=== PATIENT | male | born 1940 | race Caucasian/White ===

== ENCOUNTER → 2017-10-27 12:04 | Outpatient (CLI) | payer MEDICARE, SELFPAY ==
--- NOTE | 2017-10-27 12:15 | NVE_ITS ---
Venous Exam Indications: 729.81 Swelling of limb. IMPRESSIONS 1. There is no evidence of significant Reflux. 2. No evidence of deep or superficial vein thrombosis involving the left lower extremity Left lower extremity venous duplex evaluation. Doppler flow study including spectral analysis, color and sandhu scale imaging. Location: Vascular laboratory. Patient status: Outpatient. CRITICAL FINDINGS - Reported to: Miriam - Read back and verified. - 10/27/17 - 1240 - None Tables: Venous flow and imaging: + +-------+ + Location Overall Flow properties + +-------+ + Left common femoral Patent Normal phasicity; spontaneous; normal augmentation; compressible + +-------+ + Left saphenofemoral junction Patent Compressible + +-------+ + Left profunda femoral Patent Compressible + +-------+ + Left femoral Patent Normal phasicity; spontaneous; normal augmentation; compressible + +-------+ + Left greater saphenous Patent Normal phasicity; spontaneous; normal augmentation; compressible + +-------+ + Left popliteal Patent Normal phasicity; spontaneous; normal augmentation; compressible + +-------+ + Left posterior tibial Patent Compressible + +-------+ + Left peroneal Patent Compressible + +-------+ + Left gastrocnemius Patent Compressible + +-------+ + Left soleal Patent Compressible + +-------+ + (Report amended ) Electronically signed by: Jimi Aguirre [id number]
== END ==
PROVIDERS: PCP Family Medicine; Visit Provider Family Medicine
DX: M79.605 Pain in left leg (principal); R60.0 Localized edema
CPT/HCPCS: 93971

== ENCOUNTER 2017-12-25 05:08 | Observation (INO) ==
[2017-12-25 05:53] LABS: Basophils # 0.1 K/mm3 (0-0.2); Basophils % 0.5 % (0.1-2.0); Eosinophils # 0.3 K/mm3 (0.0-0.4); Eosinophils % 2.4 % (0.1-12.0); Hematocrit 43.1 % (42.0-52.0); Hemoglobin 14.4 g/dL (14.1-18.0); Lymphocytes # 2.2 K/mm3 (0.7-4.5); Lymphocytes % 19.1 K/mm3 (10-50); Mean Corpuscular HGB Conc 33.4 g/dL (31.8-35.4); Mean Corpuscular Hemoglobin 31.4 pg (27.0-31.2); Mean Corpuscular Volume 94.1 fl (80-94); Mean Platelet Volume 6.8 fl (7.4-10.4); Microscopic, Urine URINE MICROSCOPIC (MICROSCOPIC); Monocytes # 0.7 K/mm3 (0.1-1.0); Monocytes % 5.9 % (1.7-9.3); Neutrophils # 8.2 K/mm3 (1.8-7.8); Neutrophils % 72.1 % (37.0-80.0); Platelet Count 242 K/mm3 (142-424); Red Blood Count 4.58 M/mm3 (4.60-6.20); Red Cell Distribution Width 12.6 % (11.5-17.5); White Blood Count 11.4 K/mm3 (4.8-10.8)
[2017-12-25 06:06] LABS: Appearance,Urine CLEAR (Clear); Bilirubin,Urine Negative (Negative); Blood, Urine Negative (Negative); Color,Urine YELLOW (Yellow); Glucose,Urine (UA) Negative (Negative); Ketones,Urine Negative (Negative); Leukocyte Esterase,Urine Negative (Negative); Protein,Urine Negative (Negative); Specific Gravity, Urine 1.025 (1.005-1.030); Urobilinogen,Urine 0.2 EU/dl (0.2)
[2017-12-25 06:09] LABS: Albumin/Globulin Ratio 1.1 (1.1-1.8); Anion Gap 11.7 mEq/L (5-15); Bilirubin,Total 0.8 mg/dL (0.2-1.0); C-Reactive Protein 2.6 mg/L (0.0-0.9); Calcium 8.9 mg/dL (8.5-10.1); Globulin 3.7 gm/dl (1.3-3.2); Potassium 3.7 mmoL/L (3.5-5.1); Total Protein,Serum 7.7 gm/dL (6.4-8.2)
[2017-12-25 06:13] LABS: Bacteria,Urine 1+ /lpf; Mucus,Urine 1+ /lpf; Squamous Epithelial Cell,Urine Occasional #/hpf (0-5); WBC,Urine Occasional #/hpf (0-3)
--- NOTE | 2017-12-25 06:29 | Emergency Department Note ---
ED Disposition Clinical Impression: Colitis Disposition: Admitted as Observation Condition on Discharge: Good Instructions: DI for Gastrointestinal Bleeding Referrals: Nicolas Sharif MD [Primary Care Provider] - - Critical Care Critical Care Time: No Attestation: On 12/25/17, the high probability of a clinically significant, sudden or life threatening deterioration of the following system(s) required my full and direct attention, intervention and personal management. The time I documented below is in addition to time spent performing reported procedures but includes the following listed in this critical care notation. Medical Decision Making - Medical Records Medical records reviewed: Yes: I reviewed the patient's medical records. - Kristian Inquiry Pt receiving controlled substance: No Vital Signs: 12/25/17 05:19 12/25/17 06:22 Temperature 98.2 F Temperature Source Oral Pulse Rate [Right Radial] 116 H 104 H Respiratory Rate 15 15 Blood Pressure [Right Arm] 127/73 142/89 H Blood Pressure Mean [Right Arm] 91 106 Blood Pressure Source [Right Arm] Automatic Cuff Automatic Cuff Blood Pressure Position [Right Arm] Sitting Sitting 02 Sat by Pulse Oximetry 99 98 Oxygen Delivery Method Room Air Room Air - Lab Data Lab results reviewed: Yes: I reviewed the patient's lab results. Lab Results 12/25/17 05:40: WBC 11.4 H, RBC 4.58 L, Hgb 14.4, Hct 43.1, MCV 94.1 H, MCH 31.4 H, MCHC 33.4, RDW 12.6, Plt Count 242, MPV 6.8 L, Neut % (Auto) 72.1, Lymph % (Auto) 19.1, [place] % (Auto) 5.9, Eos % (Auto) 2.4, Baso % (Auto) 0.5, Neut # (Auto) 8.2 H, Lymph # (Auto) 2.2, [place] # (Auto) 0.7, Eos # (Auto) 0.3, Baso # (Auto) 0.1 12/25/17 05:40: Sodium 139, Potassium 3.7, Chloride 105, Carbon Dioxide 26, Anion Gap 11.7, BUN 13, Creatinine 1.00, Estimated Creat Clear 61, Estimated GFR 72, Est GFR ( Amer) 88, Glucose 115 H, Calcium 8.9, Total Bilirubin 0.8, AST 15, ALT 17, Alkaline Phosphatase 134 H, C-Reactive Protein 2.6 H, Total Protein 7.7, Albumin 4.0, Globulin 3.7 H, Albumin/Globulin Ratio 1.1, Amylase 44 12/25/17 05:40: Urine Color Yellow, Urine Appearance Clear, Urine pH 6.0, Ur Specific [place] 1.025, Urine Protein Negative, Urine Glucose (UA) Negative, Urine Ketones Negative, Urine Blood Negative, Urine Nitrate Negative, Urine Bilirubin Negative, Urine Urobilinogen 0.2, Ur Leukocyte Esterase Negative, Urine RBC None, Urine WBC Occasional, Ur Squamous Epith Cells Occasional, Urine Bacteria 1+, Urine Mucus 1+ 12/25/17 05:40: Lactate 0.8 12/25/17 05:40: Lipase 117 12/25/17 05:41: Stool Occult Blood Positive A Result diagrams: 12/25/17 05:40 12/25/17 05:40 Orders (Tests/Meds): ED MEDICATIONS Discontinued Medications Generic Name Dose Route Start Last Admin Trade Name Freq PRN Reason Stop Dose Admin Sodium Chloride 1,000 mls @ 999 mls/hr 12/25/17 05:30 12/25/17 05:41 Sod Chlor 0.9% 1000ml Bag IV 12/25/17 06:30 999 mls/hr .Q1H1M IVORY Administration Ondansetron HCl 4 mg 12/25/17 05:26 12/25/17 05:41 Zofran 4mg/2ml Vial IV 12/25/17 05:27 4 mg ONCE ONE Administration ORDERS Category Date Time Status CT abdomen pelvis wo con Stat Cat Scan 12/25/17 05:26 Taken Diarrhea Panel, PCR Stat Lab 12/25/17 05:27 Ordered Erythrocyte Sedimentation Rate Stat Lab 12/25/17 05:40 Received Occult Blood,Stool Stat Lab 12/25/17 05:41 Ordered UA [Urinalysis and Microscopic] Stat Lab 12/25/17 05:40 Ordered Blood Culture Stat Micro 12/25/17 05:40 Received - CT Data CT Scan: Abdomen, Pelvis Time Received: 07:[address] Reviewed: Yes: I have viewed the radiologist's interpretation Preliminary Findings: Abnormal (colitis ) - ECG Data Tracing #1 I reviewed this ECG and interpreted as documented below: Arrhythmias present: sinus tach Ischemic changes: non-specific ST-T wave changes - Physician Consults Physician Consulted: sound Reason -: Admission GI Bleed HPI - General Chief complaint: GI Bleed Stated complaint: rectal bleeding Time Seen by Provider: 12/25/17 06:00 Mode of Arrival: Ambulatory Source of Information: Patient, Medical Record Limitations: No Limitations Description of Symptoms (Recalled from ER Triage Doc. by RN): Pt reports last night he started having abdominal cramping and diarrhea. He reports he broke out in a sweat and had 4 or 5 more bowel movements and started having blood in his stool. - History of Present Illness HPI Narrative: pt with diarrhea and brrb with crampy abd pain with diaphoresis but no vomiting which started last pm MD complaint: gross hematochezia Onset (ago): day(s) Severity: moderate Associated symptoms: denies other symptoms Treatments Prior to Arrival: none - Related Data Home Medications Medication Instructions Recorded Confirmed Amlodipine Besylate 5 mg PO DAILY 12/25/17 12/25/17 Aspirin [Aspirin 325mg Tab] 325 mg PO DAILY 12/25/17 12/25/17 Ramipril 5 mg PO DAILY 12/25/17 12/25/17 raNITIdine HCl [Ranitidine HCl] 150 mg PO BID 12/25/17 12/25/17 Allergies Allergy/AdvReac Type Severity Reaction Status Date / Time INGREDIENT: NO KNOWN - NO Allergy Unknown Uncoded 03/04/17 15:21 KNOWN DRUG ALLERGY [facility] History I have reviewed the patient's past medical history: Yes - Social History Smoking Status: Current every day smoker Tobacco Type: smokeless tobacco Alcohol Intake: current Alcohol Intake Frequency:: a few times a week - Psychiatric History Expresses thoughts of harming self/others: None Suicide Plan Description: No Plan ROS Obtained: Yes All systems reviewed & no additional complaints - Constitutional Constitutional: Denies fever(s) - Eyes Eyes: Denies change in vision - ENT Ears, Nose, Mouth, and Throat: Denies sore throat - Cardiovascular Cardiovascular: Denies chest pain - Respiratory Respiratory: No cough - Gastrointestinal Gastrointestingal: Reports: abdominal pain, diarrhea, bright red blood in stools, nausea, vomiting - Genitourinary Male Genitourinary: Denies hematuria - Musculoskeletal Musculoskeletal: Denies joint pain - Integumentary/Breasts Skin/Breast: Denies rash - Neurologic Neurologic: Denies seizure-like activity Physical Exam - General General appearance: alert, in no apparent distress - Head Head exam: normocephalic - Eye Eye exam: Present: PERRL, EOMI - ENT ENT exam: Present: mucous membranes dry - Neck Neck exam: Present: trachea midline - Respiratory Respiratory exam: Present: normal lung sounds bilaterally. Absent: respiratory distress - Cardiovascular Cardiovascular exam: Present: regular rate, systolic murmur - Abdominal Exam Abdominal exam: Present: soft, tenderness Abdominal tenderness: Present: epigastrium, moderate - Extremities Exam Extremities exam: Present: full ROM - Neurological Exam Neurological exam: Present: alert, oriented X3, CN II-XII intact - Psychiatric Psychiatric exam: Present: normal affect - Skin Skin exam: Absent: rash
--- NOTE | 2017-12-25 08:32 | History & Physical Report ---
*Admission Date: 12/25/17 <Veda Alamo 12/25/17 08:46> *Chief complaint: Blood in stool <Beny Alamo12/25/17 08:46> *History of present illness: Mr. Vivas is a 77yo WM with history of HTN, CAD with CABG, HLP, GERD, and OA who presented to the [facility] ED this morning after several episodes of judd blood in his stool. He reports that after supper last night he started with some abdominal cramping which progressed to several episodes of bloody diarrhea. Episodes were accompanied by nausea, lightheadedness, and diaphoresis. He presented to the ED where heme stool was positive and he was admitted for further evaluation. At this time, the patient is resting quietly in bed. He has had no further BM since providing stool specimen in the ED. He is no longer nauseated but continues with crampy abdominal pain and tenderness. Abdominal CT is pending. <Veda Alamo 12/25/17 08:46> [facility] History Medical History: Reports:: Atherosclerotic Heart Disease, Gastroesophageal Reflux Disease(GERD), Hyperlipidemia, Hypertension <Veda Alamo 12/25/17 08:46> Other Medical History: Reports: Arthritis <Veda Alamo 12/25/17 08:46> Other Surgeries: Yes: CABG <JasmeetVeda - 12/25/17 08:46> - *Social History Smoking Status: Current every day smoker <Veda Alamo 12/25/17 08:46> Tobacco Type: smokeless tobacco <Veda Alamo 12/25/17 08:46> Alcohol Intake: current <eVda Alamo 12/25/17 08:46> Alcohol Intake Frequency:: a few times a week <Veda Alamo 12/25/17 08:46> - Psychiatric History Expresses thoughts of harming self/others: None <Veda Alamo 12/25/17 08:46> Suicide Plan Description: No Plan <Veda Alamo 12/25/17 08:46> *Family Hx:: Cancer, Diabetes, Kidney Disease <Veda Alamo 12/25/17 08:46> Review of Systems - Constitutional Reports excessive sweating, Reports weakness, Denies body ache(s), Denies chills <Veda Alamo 12/25/17 08:46> - Eyes Denies change in vision <Veda Alamo 12/25/17 08:46> - ENT Denies nasal congestion, Denies nasal discharge, Denies sore throat <Veda Alamo 12/25/17 08:46> - *Cardiovascular Reports excessive sweating, Reports lightheadedness, Denies chest pain, Denies shortness of breath <JasmeetVeda 12/25/17 08:46> - *Respiratory Denies chest congestion, Denies cough, Denies shortness of breath <Veda Alamo 12/25/17 08:46> - *Gastrointestinal Reports abdominal pain, Reports bloating, Reports cramping, Reports bright, red blood in stools, Reports loose stools, Reports nausea, Denies vomiting <Veda Alamo 12/25/17 08:46> - *Genitourinary Denies difficulty urinating <JasmeetVeda 12/25/17 08:46> - *Musculoskeletal Denies body aches <JasmeetVeda 12/25/17 08:46> - *Neurologic Denies seizure-like activity, Denies fainting <Veda Alamo 12/25/17 08:46> Meds Home Medications Medication Instructions Recorded Confirmed Type Amlodipine Besylate 5 mg PO DAILY 12/25/17 12/25/17 History Aspirin [Aspirin 325mg Tab] 325 mg PO DAILY 12/25/17 12/25/17 History Ramipril 5 mg PO DAILY 12/25/17 12/25/17 History raNITIdine HCl [Ranitidine HCl] 150 mg PO BID 12/25/17 12/25/17 History <VianeyGabriela 12/25/17 19:28> Allergies Allergy/AdvReac Type Severity Reaction Status Date / Time No Known Allergies Allergy Unverified 12/25/17 07:56 <Gabriela Winters 12/25/17 19:28> Exam Vital signs and Labs for Last 24 Hours: Temp Pulse Resp BP Pulse Ox 98.7 F 92 H 18 141/71 H 98 12/25/17 15:29 12/25/17 15:29 12/25/17 15:29 12/25/17 15:29 12/25/17 15:29 Laboratory Results - last 24 hr 12/25/17 05:40: WBC 11.4 H, RBC 4.58 L, Hgb 14.4, Hct 43.1, MCV 94.1 H, MCH 31.4 H, MCHC 33.4, RDW 12.6, Plt Count 242, MPV 6.8 L, Neut % (Auto) 72.1, Lymph % (Auto) 19.1, [place] % (Auto) 5.9, Eos % (Auto) 2.4, Baso % (Auto) 0.5, Neut # (Auto) 8.2 H, Lymph # (Auto) 2.2, [place] # (Auto) 0.7, Eos # (Auto) 0.3, Baso # (Auto) 0.1 12/25/17 05:40: Sodium 139, Potassium 3.7, Chloride 105, Carbon Dioxide 26, Anion Gap 11.7, BUN 13, Creatinine 1.00, Estimated Creat Clear 61, Estimated GFR 72, Est GFR ( Amer) 88, Glucose 115 H, Calcium 8.9, Total Bilirubin 0.8, AST 15, ALT 17, Alkaline Phosphatase 134 H, C-Reactive Protein 2.6 H, Total Protein 7.7, Albumin 4.0, Globulin 3.7 H, Albumin/Globulin Ratio 1.1, Amylase 44 12/25/17 05:40: Urine Color Yellow, Urine Appearance Clear, Urine pH 6.0, Ur Specific [place] 1.025, Urine Protein Negative, Urine Glucose (UA) Negative, Urine Ketones Negative, Urine Blood Negative, Urine Nitrate Negative, Urine Bilirubin Negative, Urine Urobilinogen 0.2, Ur Leukocyte Esterase Negative, Urine RBC None, Urine WBC Occasional, Ur Squamous Epith Cells Occasional, Urine Bacteria 1+, Urine Mucus 1+ 12/25/17 05:40: Lactate 0.8 12/25/17 05:40: ESR 25 H 12/25/17 05:40: Lipase 117 12/25/17 05:41: Stool Occult Blood Positive A <Sound,Gabriela - 12/25/17 19:28> Temp Pulse Resp BP Pulse Ox 97.9 F 103 H 18 152/84 H 97 12/25/17 07:56 12/25/17 07:56 12/25/17 07:56 12/25/17 07:56 12/25/17 07:56 Laboratory Results - last 24 hr 12/25/17 05:40: WBC 11.4 H, RBC 4.58 L, Hgb 14.4, Hct 43.1, MCV 94.1 H, MCH 31.4 H, MCHC 33.4, RDW 12.6, Plt Count 242, MPV 6.8 L, Neut % (Auto) 72.1, Lymph % (Auto) 19.1, [place] % (Auto) 5.9, Eos % (Auto) 2.4, Baso % (Auto) 0.5, Neut # (Auto) 8.2 H, Lymph # (Auto) 2.2, [place] # (Auto) 0.7, Eos # (Auto) 0.3, Baso # (Auto) 0.1 12/25/17 05:40: Sodium 139, Potassium 3.7, Chloride 105, Carbon Dioxide 26, Anion Gap 11.7, BUN 13, Creatinine 1.00, Estimated Creat Clear 61, Estimated GFR 72, Est GFR ( Amer) 88, Glucose 115 H, Calcium 8.9, Total Bilirubin 0.8, AST 15, ALT 17, Alkaline Phosphatase 134 H, C-Reactive Protein 2.6 H, Total Protein 7.7, Albumin 4.0, Globulin 3.7 H, Albumin/Globulin Ratio 1.1, Amylase 44 12/25/17 05:40: Urine Color Yellow, Urine Appearance Clear, Urine pH 6.0, Ur Specific [place] 1.025, Urine Protein Negative, Urine Glucose (UA) Negative, Urine Ketones Negative, Urine Blood Negative, Urine Nitrate Negative, Urine Bilirubin Negative, Urine Urobilinogen 0.2, Ur Leukocyte Esterase Negative, Urine RBC None, Urine WBC Occasional, Ur Squamous Epith Cells Occasional, Urine Bacteria 1+, Urine Mucus 1+ 12/25/17 05:40: Lactate 0.8 12/25/17 05:40: ESR 25 H 12/25/17 05:40: Lipase 117 12/25/17 05:41: Stool Occult Blood Positive A <Veda Alamo - 12/25/17 08:46> I & O for Last 24 hours: Intake & Output 12/23/17 12/24/17 12/25/17 12/26/17 11:59 11:59 11:59 11:59 Intake Total 0 / 0 Balance 0 / 0 Weight 155 lb 9 oz <Gabriela Winters 12/25/17 19:28> Intake & Output 12/22/17 12/23/17 12/24/17 12/25/17 11:59 11:59 11:59 11:59 Weight 155 lb 9 oz <Veda Alamo 12/25/17 08:46> - Constitutional no acute distress <Beny Alamoa 12/25/17 08:46> - *Routine HEENT Exam Head: Present: normocephalic, atraumatic <Beny Alamoa 12/25/17 08:46> Eye: Present: PERRL, normal accommodation. Absent: scleral injection <Beny Alamoa 12/25/17 08:46> ENT: Present: mucous membranes moist, nares patent <Beny Alamoa 12/25/17 08:46> - *Routine Neck Exam Present: supple, full ROM. Absent: lymphadenopathy, thyromegaly, tenderness <JasmeetVeda 12/25/17 08:46> - *Routine Respiratory Exam Comments: CTAB A&P <Beny Alamoa 12/25/17 08:46> - *Routine Cardiovascular Exam Present: RRR. Absent: murmur <Beny Alamoa 12/25/17 08:46> - *Routine Abdominal Exam Comments: BS x 4, hyperactive, soft, mildly and diffusely ttp, no guarding, no rebound, no organomegaly or mass <JasmeetVeda 12/25/17 08:46> - *Routine Extremities Exam Comments: trace LLE edema, full ROM, pulses present, no calf tenderness <JasmeetBeny choea 12/25/17 08:46> - *Routine Neurological Exam Present: alert, oriented X3, moving all extremities, normal speech. Absent: facial asymmetry <JasmeetVeda 12/25/17 08:46> Assessment and Plan - Assessment and plan all Dx Assessment and Plan for all problems:: Will dc levaquin and will only keep on PO vancomycin for c.difficle. E.coli diarrhea doesn't need any treatment at this time. Will plan for dispo tomorrow. Stop IVF and start feeds in the am. <Janet Wintersa 12/25/17 19:28> CT pending. Nursing reports lab called with diarrhea panel preliminary results showing C.difficile and E.coli. Pt is on levaquin and flagyl currently. Further per Dr. Winters. <Veda Alamo - 12/25/17 08:46>
--- NOTE | 2017-12-25 09:51 | Pharmacy Consult Notes ---
[facility] Pharmacy VTE Monitoring - Patient Demographics Admission date: 12/25/17 Report Date: 12/25/17 Time: 09:50 Allergies/Adverse Reactions: Patient Allergies No Known Allergies Allergy (Unverified 12/25/17 07:56) Height: 1.73 m Weight: 70.562 kg Patient Problems: Current Active Problems Colitis (Acute) - VTE Risk Labs: VTE Related Lab Results Hgb 14.4 g/dL (14.1-18.0) 12/25/17 05:40 Hct 43.1 % (42.0-52.0) 12/25/17 05:40 Plt Count 242 K/mm3 (142-424) 12/25/17 05:40 BUN 13 mg/dL (7-18) 12/25/17 05:40 Creatinine 1.00 mg/dL (0.70-1.30) 12/25/17 05:40 Estimated Creat Clear 61 mL/min (0-300) 12/25/17 05:40 - Prophylaxis Types of VTE Prophylaxis: TEDS Knee High Location of Applied Device: Bilateral Lower Extremeties (JUAN FRANCISCO HOSE ORDERED)
[2017-12-26 06:28] LABS: Basophils % 0.2 % (0.1-2.0); Eosinophils # 0.2 K/mm3 (0.0-0.4); Eosinophils % 1.3 % (0.1-12.0); Hematocrit 39.8 % (42.0-52.0); Lymphocytes % 15.1 K/mm3 (10-50); Mean Corpuscular HGB Conc 32.7 g/dL (31.8-35.4); Mean Corpuscular Hemoglobin 30.9 pg (27.0-31.2); Mean Corpuscular Volume 94.5 fl (80-94); Mean Platelet Volume 6.9 fl (7.4-10.4); Monocytes # 0.8 K/mm3 (0.1-1.0); Monocytes % 5.7 % (1.7-9.3); Neutrophils # 10.4 K/mm3 (1.8-7.8); Neutrophils % 77.6 % (37.0-80.0); Platelet Count 198 K/mm3 (142-424); Red Blood Count 4.21 M/mm3 (4.60-6.20); Red Cell Distribution Width 12.5 % (11.5-17.5); White Blood Count 13.4 K/mm3 (4.8-10.8)
[2017-12-26 06:36] LABS: Calcium 8.2 mg/dL (8.5-10.1)
--- NOTE | 2017-12-26 08:07 | Progress Note ---
<Dayami Loya - Last Filed: 12/26/17 08:03> Internal Medicine - PN: Subj *Date: 12/26/17 *Time: 08:04 Interval history: Patient states he is feeling better today. His last few trips to the bathroom, he has only urinated and not had any bowel movement. He still has some pain on the left side and it's worse in the left lower quadrant. He was able to tolerate some coffee this morning and is going to try to eat some chicken broth. He slept off and on throughout the night. Exam Vital signs and Labs for Last 24 Hours: Temp Pulse Resp BP Pulse Ox 98.6 F 88 18 141/67 H 97 12/26/17 07:33 12/26/17 07:33 12/26/17 07:33 12/26/17 07:33 12/26/17 07:33 Laboratory Results - last 24 hr 12/26/17 06:10: WBC 13.4 H, RBC 4.21 L, Hgb 13.0 L, Hct 39.8 L, MCV 94.5 H, MCH 30.9, MCHC 32.7, RDW 12.5, Plt Count 198, MPV 6.9 L, Neut % (Auto) 77.6, Lymph % (Auto) 15.1, [place] % (Auto) 5.7, Eos % (Auto) 1.3, Baso % (Auto) 0.2, Neut # (Auto) 10.4 H, Lymph # (Auto) 2.0, [place] # (Auto) 0.8, Eos # (Auto) 0.2, Baso # (Auto) 0.0 12/26/17 06:10: Sodium 139, Potassium 4.0, Chloride 105, Carbon Dioxide 28, Anion Gap 10.0, BUN 9 D, Creatinine 0.88, Estimated Creat Clear 60, Estimated GFR 84, Est GFR ( Amer) 102, Glucose 100, Calcium 8.2 L I & O for Last 24 hours: Intake & Output 12/23/17 12/24/17 12/25/17 12/26/17 11:59 11:59 11:59 11:59 Intake Total 1773 / 1773 Balance 1773 / 1773 Weight 155 lb 9 oz 152 lb 3 oz Radiology Reports for the Last 24 Hours: Abd CT 1. Long segment colon wall thickening-. This prominent wall thickening involving a long segment of large bowel extending from the transverse colon through the descending colon into the sigmoid colon. Surrounding paracolic fat stranding.- Findings most compatible with a diffuse colitis involving the left colon. No pneumatosis. No free intraperitoneal air or fluid. No abscess or l oculated collection. 2. Left inguinal hernia, containing portion of thickened proximal sigmoid colon.. I suspect the wall thickening is due to the colitis rather than incarceration.. Would concur with [facility] in this regard. No bowel obstruction proximal to this hernia 3.. Strongly favor this most likely infectious colitis, but requires clinical correlation. Consider follow-up CTA if significant clinical concern regarding ischemic colitis should develop. ( patient does have prominent calcified plaque which narrows the mid abdominal aorta, as well as at origin of SMA, but but below the aortic narrowing there seems to be generous, adequate volume YONG which is the typical supply to the left colon. Contrast be required to fully confirm patency) 4. Small punctate renal calculi bilaterally. Nonobstructive. Upper normal the slight wall thickening urinary bladder warrants correlation with urinalysis. 5. Other incidental observations in text. ... Small hiatal hernia ... Would recommend a two-view chest better evaluate the pleural calcifications at left chest. (No previous chest films available at our facility) - Constitutional no acute distress - *Routine Respiratory Exam Present: CTA bilaterally - *Routine Cardiovascular Exam Present: RRR - *Routine Abdominal Exam Present: soft, normoactive bowel sounds, tenderness (of the entire left side but worse in the LLQ) - *Routine Extremities Exam Absent: cyanosis, clubbing, edema Assessment and Plan (1) C. difficile colitis Current visit: Yes Status: Acute Category: Medical Code(s): A04.72 - Enterocolitis due to Clostridium difficile, not specified as recurrent (2) E. coli colitis Current visit: Yes Status: Acute Category: Medical Code(s): A04.4 - Other intestinal Escherichia coli infections (3) Hypertension Current visit: Yes Status: Chronic Category: Medical Code(s): I10 - Essential (primary) hypertension (4) Hyperlipidemia Current visit: Yes Status: Chronic Category: Medical Code(s): E78.5 - Hyperlipidemia, unspecified (5) ASCVD (arteriosclerotic cardiovascular disease) Current visit: Yes Status: Chronic Category: Medical Code(s): I25.10 - Atherosclerotic heart disease of [place] coronary artery without angina pectoris - Assessment and plan all Dx Assessment and Plan for all problems:: Patient is currently on p.o. vancomycin. He is still taking very little liquid p.o. Will continue antibiotics and discuss further care with Dr. mayorga. <Gabriela Mayorga - Last Filed: 12/26/17 09:17> Exam Vital signs and Labs for Last 24 Hours: Temp Pulse Resp BP Pulse Ox 98.6 F 88 18 141/67 H 97 12/26/17 07:33 12/26/17 07:33 12/26/17 07:33 12/26/17 07:33 12/26/17 07:33 Laboratory Results - last 24 hr 12/26/17 06:10: WBC 13.4 H, RBC 4.21 L, Hgb 13.0 L, Hct 39.8 L, MCV 94.5 H, MCH 30.9, MCHC 32.7, RDW 12.5, Plt Count 198, MPV 6.9 L, Neut % (Auto) 77.6, Lymph % (Auto) 15.1, [place] % (Auto) 5.7, Eos % (Auto) 1.3, Baso % (Auto) 0.2, Neut # (Auto) 10.4 H, Lymph # (Auto) 2.0, [place] # (Auto) 0.8, Eos # (Auto) 0.2, Baso # (Auto) 0.0 12/26/17 06:10: Sodium 139, Potassium 4.0, Chloride 105, Carbon Dioxide 28, Anion Gap 10.0, BUN 9 D, Creatinine 0.88, Estimated Creat Clear 60, Estimated GFR 84, Est GFR ( Amer) 102, Glucose 100, Calcium 8.2 L I & O for Last 24 hours: Intake & Output 12/23/17 12/24/17 12/25/17 12/26/17 11:59 11:59 11:59 11:59 Intake Total 1773 / 177 Balance 1773 / 1773 Weight 155 lb 9 oz 152 lb 3 oz Assessment and Plan (1) C. difficile colitis Current visit: Yes Status: Acute Category: Medical Code(s): A04.72 - Enterocolitis due to Clostridium difficile, not specified as recurrent (2) E. coli colitis Current visit: Yes Status: Acute Category: Medical Code(s): A04.4 - Other intestinal Escherichia coli infections (3) Hypertension Current visit: Yes Status: Chronic Category: Medical Code(s): I10 - Essential (primary) hypertension (4) Hyperlipidemia Current visit: Yes Status: Chronic Category: Medical Code(s): E78.5 - Hyperlipidemia, unspecified (5) ASCVD (arteriosclerotic cardiovascular disease) Current visit: Yes Status: Chronic Category: Medical Code(s): I25.10 - Atherosclerotic heart disease of [place] coronary artery without angina pectoris - Assessment and plan all Dx Assessment and Plan for all problems:: continue abx and and advance diet to solids this afternoon to see if he tolerates them. Possible dc in PM if he tolerates food.
--- NOTE | 2017-12-27 16:04 | Discharge Summary ---
General - General Admission date:: 12/25/17 Discharge date: 12/26/17 HPI HPI: Mr. Vivas is a 77yo WM with history of HTN, CAD with CABG, HLP, GERD, and OA who presented to the [facility] ED this morning after several episodes of judd blood in his stool. He reports that after supper last night he started with some abdominal cramping which progressed to several episodes of bloody diarrhea. Episodes were accompanied by nausea, lightheadedness, and diaphoresis. He presented to the ED where heme stool was positive and he was admitted for further evaluation. At this time, the patient is resting quietly in bed. He has had no further BM since providing stool specimen in the ED. He is no longer nauseated but continues with crampy abdominal pain and tenderness. Abdominal CT is pending. Hospital Course Hospital Course: Nursing reported a diarrhea panel preliminary result showing C.difficile and E.coli. The patient was on levaquin and flagyl. His IV abx were stopped and he was started on PO vancomycin for the c.difficle. E.coli diarrhea did not require any treatment. His CT showed colitis from the transverse through the descending colon into the sigmoid colon. He was able to tolerate liquids and then a diet. He was stable to be discharged home on both PO vancomcin and levaquin. Objective Vital signs: Temp Pulse Resp BP Pulse Ox 98.6 F 88 18 141/67 H 97 12/26/17 07:33 12/26/17 07:33 12/26/17 07:33 12/26/17 07:33 12/26/17 07:33 Narrative: - Constitutional no acute distress - *Routine HEENT Exam Head: Present: normocephalic, atraumatic Eye: Present: PERRL, normal accommodation. Absent: scleral injection ENT: Present: mucous membranes moist, nares patent - *Routine Neck Exam Present: supple, full ROM. Absent: lymphadenopathy, thyromegaly, tenderness - *Routine Respiratory Exam Comments: CTAB A&P - *Routine Cardiovascular Exam Present: RRR. Absent: murmur - *Routine Abdominal Exam Comments: BS x 4, hyperactive, soft, mildly and diffusely ttp, no guarding, no rebound, no organomegaly or mass - *Routine Extremities Exam Comments: trace LLE edema, full ROM, pulses present, no calf tenderness - *Routine Neurological Exam Present: alert, oriented X3, moving all extremities, normal speech. Absent: facial asymmetry Results Labs on day of discharge: Preliminary micro results at discharge 12/25/17 05:40 Blood Culture - Preliminary Blood NO GROWTH AFTER 48 HOURS 12/25/17 05:40 Blood Culture - Preliminary Blood NO GROWTH AFTER 48 HOURS DS: Diagnosis - Discharge Diagnosis (1) C. difficile colitis Status: Acute (2) E. coli colitis Status: Acute (3) Hypertension Status: Chronic (4) Hyperlipidemia Status: Chronic (5) ASCVD (arteriosclerotic cardiovascular disease) Status: Chronic Discharge Plan - Patient Discharge Instructions ACTIVITY: Continue current activity DIET: continue same diet Patient Instructions: DI for Antibiotic -- associated Colitis -- C difficile, DI for Multiple Drug-resistant Organism (MDRO) Infection, DI for Colitis - Follow up Plan Follow up with: Gabriela Winters MD [Staff Physician] - 1 week Disposition: Home, Self-Fdc Medications: Home Medications Medication Instructions Recorded Confirmed Type Amlodipine Besylate 5 mg PO DAILY 12/25/17 12/25/17 History Aspirin [Aspirin 325mg Tab] 325 mg PO DAILY 12/25/17 12/25/17 History Ramipril 5 mg PO DAILY 12/25/17 12/25/17 History raNITIdine HCl [Ranitidine HCl] 150 mg PO BID 12/25/17 12/25/17 History Prescriptions/Medication Reconciliation: New Ondansetron HCl [Zofran 4mg Tab] 4 mg PO TID 7 Days #21 tab Pantoprazole Sodium [Protonix 40mg tablet] 40 mg PO HS 30 Days #30 tablet. levoFLOXacin [Levaquin 750mg tablet] 750 mg PO 1100 #10 tablet Vancomycin HCl [Vancocin HCl] 125 mg PO Q8H 7 Days #21 capsule Continue Ramipril 5 mg PO DAILY Aspirin [Aspirin 325mg Tab] 325 mg PO DAILY Amlodipine Besylate 5 mg PO DAILY raNITIdine HCl [Ranitidine HCl] 150 mg PO BID
== END 2017-12-26 13:20 | disposition home or self-care (01) ==
LOC: ER 05:08 → 2ND 05:08
PROVIDERS: ADMIT Emergency Medicine; ATTEND Emergency Medicine
CPT/HCPCS: 36415; 74176; 80048; 80053; 81001; 82150; 82272; 83605; 83690; 85025; 85651; 86140; 87040; 93005; 96365; 99284; G0328; G0378; J1956; J2405; J3370

== ENCOUNTER → 2018-01-07 08:42 | Outpatient (CLI) | payer MEDICARE, SELFPAY ==
--- NOTE | 2018-01-07 | US_ITS ---
US Arterial Ankle Brachial Ind History: Previous smoker, hypertension, peripheral vascular disease, bilateral rest pain, bilateral claudication with skin changes ORDERING PHYSICIAN: Gabriela Winters MD PATIENT AGE: 77 years TECHNIQUE: Segmental pressures obtained of both right and left leg. These are compared to brachial blood pressure to yield index at each level sampled including summary LATONIA. The data sheets from the procedure are available in PACS FINDINGS Rest study only performed today No prior studies available for comparison. Blood pressures reported are in millimeters mercury. RIGHT LEG LATONIA = 1.0. RIGHT LEG TBI=0.8 Brachial BP: 124 Thigh BP: 146 Calf BP: 184 Ankle PT: 135 Ankle DP : 121 Digit =108 LEFT LEG LATONIA = 1.1 LEFT LEG TBI= 0.7 Brachial BPD: 133 Thigh BP: 144 Calf BP: 200 Ankle PT:145 Ankle DP: 132 Digit = 88 Pulses and waveforms: Normal IMPRESSION: The ABIs as reported above are within normal limits. Waveforms and pulses are also unremarkable.
--- NOTE | 2018-01-07 | CA_ITS ---
PROCEDURE: 2-D M-mode and color Doppler study INDICATIONS FOR THE TEST: Chest pain COPD Heart Murmur Tobacco Smoking Palpitations Fatigue Syncope EdemaX HypertensionXDiabetes Mellitus Rheumatic Fever SOBXDOE Obesity HyperlipidemiaX Family History HD Additional History CAD,CABG PATIENT INFORMATION HEIGHT: 68 WEIGHT:155 GENDER: Male B/P:141/67 2-D/M-MODE INTERPRETATION: 2-D MEASUREMENTS OBSERVED VALUES IN CMS Right Ventricular Dimension (RVDd) 2.3 Interventricular Septum (Thickness)(IVsd) .7 Left Ventricular Internal Dimensions(LVIDd) 5.0 Left Ventricular Posterior Wall (Thickness)(LVPWd) .7 Aortic Root 3.6 Aortic Cusp Separation 1.0 Left Atrial Dimensions (LAD) 2.6 2D 1. Left atrium is mildly enlarged, left ventricle is normal size, mild concentric left ventricular hypertrophy, visually estimated ejection fraction of 55% with no regional wall motion abnormality. 2. The right atrium and right ventricle are normal size and contractility. 3. The aortic valve is minimally thickened and calcified leaflet continue to display mobility. 4. The mitral and tricuspid valvular grossly normal. 5. The pulmonic valve is poorly visualized. 6. Significant pericardial effusion noted. DOPPLER INTERROGATION: Doppler interrogation of the aortic, mitral and tricuspid valve reveals presence of mild mitral and tricuspid regurgitation, tricuspid regurgitation jet velocity is inadequate for calculation of the right ventricular systolic pressure, grade 1 diastolic dysfunction seen with tissue Doppler evidence of raised left atrial pressure. CONCLUSION: 1. Mildly enlarged left atrium, normal left ventricular size, mild concentric left ventricular hypertrophy, visually estimated ejection fraction 55% with no regional wall motion abnormality, grade 1 diastolic dysfunction seen with tissue Doppler evidence of raised left atrial pressure. 2. Mild mitral and tricuspid regurgitation 3. Thickened and calcified aortic valve without Doppler evidence of aortic stenosis aortic insufficiency. 4. No significant pericardial effusion noted.
== END ==
PROVIDERS: PCP Family Medicine; Visit Provider Emergency Medicine
DX: R06.02 Shortness of breath (principal); I73.9 Peripheral vascular disease, unspecified; M79.89 Other specified soft tissue disorders
CPT/HCPCS: 93306; 93922

== ENCOUNTER 2018-06-23 17:51 | Inpatient (IN) ==
--- NOTE | 2018-06-23 18:13 | Emergency Department Note ---
ED Disposition Clinical Impression: Closed left hip fracture Qualifiers: Encounter type: initial encounter Qualified Code(s): S72.002A - Fracture of unspecified part of neck of left femur, initial encounter for closed fracture Disposition: Admitted As Inpatient Condition on Discharge: Fair Referrals: Nicolas Sharif MD [Primary Care Provider] - - Critical Care Critical Care Time: No Attestation: On , the high probability of a clinically significant, sudden or life threatening deterioration of the following system(s) required my full and direct attention, intervention and personal management. The time I documented below is in addition to time spent performing reported procedures but includes the following listed in this critical care notation. Medical Decision Making - Kristian Inquiry Pt receiving controlled substance: No (Declines pain medication at this time) Vital Signs: 06/23/18 17:52 06/23/18 19:10 Temperature 98.3 F Temperature Source Oral Pulse Rate [Right Brachial] 83 95 H Respiratory Rate 16 18 Blood Pressure [Right Arm] 149/78 H 124/88 Blood Pressure Mean [Right Arm] 101 100 Blood Pressure Source [Right Arm] Automatic Cuff Automatic Cuff Blood Pressure Position [Right Arm] Supine Sitting 02 Sat by Pulse Oximetry 98 100 Oxygen Delivery Method Room Air Room Air - Lab Data Lab Results 06/23/18 18:01: WBC 6.8, RBC 4.04 L, Hgb 12.6 L, Hct 37.5 L, MCV 92.7, MCH 31.3 H, MCHC 33.7, RDW 13.2, Plt Count 249, MPV 7.1 L, Neut % (Auto) 52.0, Lymph % (Auto) 37.8, [place] % (Auto) 5.9, Eos % (Auto) 3.7, Baso % (Auto) 0.5, Neut # (Auto) 3.5, Lymph # (Auto) 2.6, [place] # (Auto) 0.4, Eos # (Auto) 0.3, Baso # (Auto) 0.0 06/23/18 18:01: Sodium 143, Potassium 4.3, Chloride 105, Carbon Dioxide 28, Anion Gap 14.3, BUN 20 H, Creatinine 1.33 H, Estimated Creat Clear 45, Estimated GFR 52 L, Est GFR ( Amer) 63, Glucose 108 H, Calcium 9.2, Total Bilirubin 0.5, AST 14 L, ALT 18, Alkaline Phosphatase 95, Total Protein 7.6, Albumin 4.0, Globulin 3.6 H, Albumin/Globulin Ratio 1.1 Result diagrams: 06/23/18 18:01 06/23/18 18:01 Orders (Tests/Meds): ED MEDICATIONS Generic Name Dose Route Start Last Admin Trade Name Freq PRN Reason Stop Dose Admin Sodium Chloride 10 ml 06/23/18 18:15 Saline Flush 10ml Syringe IV 07/23/18 18:14 NEEDED PRN Maintain IV Site Discontinued Medications Generic Name Dose Route Start Last Admin Trade Name Freq PRN Reason Stop Dose Admin Morphine Sulfate 4 mg 06/23/18 19:38 06/23/18 19:47 Morphine 4mg/Ml Syringe IV 06/23/18 19:39 4 mg ONCE ONE Administration Ondansetron HCl 4 mg 06/23/18 19:38 06/23/18 19:47 Zofran 4mg/2ml Vial IV 06/23/18 19:39 4 mg ONCE ONE Administration ORDERS Category Date Time Status XR chest AP Stat Exams 06/23/18 18:15 Taken XR femur LT 2V Stat Exams 06/23/18 17:53 Taken XR hip LT 2-3V w/pelvis Stat Exams 06/23/18 17:53 Taken - Radiology Data #1 Image(s): Chest, Hip, Femur Image Reviewed: Yes I reviewed the patient's radiology image She is reviewed with Dr. Pate. He concurs that there is a nondisplaced fracture at the base of the femoral neck just cephalad to the trochanters. Chest x-ray shows pleural calcification at the left costophrenic angle, no acute process. - ECG Data Tracing #1 EKG interpreted by Herber Claire MD: Rhythm: sinus Rate: 100 Bantam: normal Ectopy: none Conduction: First-degree AV block ST Segment Changes: none T Wave Changes: none Q Waves: none No evidence of acute ischemia or injury Baseline artifact present, but I consider the EKG adequate for accurate interpretation. - Physician Consults Physician Consulted: Chante Time: 19:22 Reason -: Admission Comment/Response: Agrees to admit the patient to the hospital. We discussed the patient's clinical information, including history, exam, laboratory and radiology results and ED course. Per hospital procedure, I will write temporary bridge inpatient orders on the patient. Specific orders requested by the admitting physician: N.p.o. after midnight. Cardiology consult. Echocardiogram. General Adult HPI - General Chief complaint: PAIN Stated complaint: c/o L hip r/t fall Time Seen by Provider: 06/23/18 18:07 Mode of Arrival: Family Vehicle Limitations: No Limitations Description of Symptoms (Recalled from ER Triage Doc. by RN): Pt was chaning a bolt and it broke lose and and fell on his left hip. Pt c/o left hip and thigh pain - History of Present Illness HPI narrative: Patient fell landing on his left hip. Complains of pain in his proximal femur. Denies any other injury. Says he landed on his butt and did not strike his head. He is not on any blood thinners. Has chronic edema of his left lower extremity, has had extensive workup, negative. Prior coronary artery bypass surgery in the 90s. Does not currently have a relaster. - Related Data Home Medications Medication Instructions Recorded Confirmed Amlodipine Besylate 5 mg PO DAILY 12/25/17 06/23/18 Aspirin [Aspirin 325mg Tab] 325 mg PO DAILY 12/25/17 06/23/18 Ramipril 5 mg PO DAILY 12/25/17 06/23/18 raNITIdine HCl [Ranitidine HCl] 150 mg PO BID 12/25/17 06/23/18 Allergies Allergy/AdvReac Type Severity Reaction Status Date / Time No Known Allergies Allergy Verified 06/23/18 18:05 [facility] History - Hepatitis A Screen Drug use history?: No High risk sexual behaviors?: No History of sexually transmitted infection?: No Currently employed?: No Childcare worker?: No Do you have indoor plumbing?: Yes Do you have electricity?: Yes Attestation statement:: This patient has been screened for Hepatitis A risk factors. I have reviewed the patient's past medical history: Yes Medical History: Reports:: Atherosclerotic Heart Disease, Gastroesophageal Reflux Disease(GERD), Hyperlipidemia, Hypertension, Myocardial Infarction Denies:: Diabetes Mellitus Type 1, Diabetes Mellitus Type 2 Other Medical History: Reports: Arthritis, Cataracts Other Surgeries: Yes: CABG, Colonoscopy - Social History Smoking Status: Current every day smoker Tobacco Type: smokeless tobacco Alcohol Intake: current Alcohol Intake Frequency:: a few times a week Occupational Status: retired Household Members: spouse Family Hx:: Cancer, Diabetes, Kidney Disease ROS Obtained: Yes All systems reviewed & no additional complaints - Constitutional Constitutional: Denies fever(s) - Cardiovascular Cardiovascular: Denies chest pain - Respiratory Respiratory: No dyspnea - Gastrointestinal Gastrointestingal: Denies: abdominal pain, vomiting - Musculoskeletal Musculoskeletal: Reports joint pain (Left hip), Denies back pain, Denies neck pain - Neurologic Neurologic: Denies headache(s), Denies numbness, Denies weakness Physical Exam - General General appearance: alert, in no apparent distress - Head Head exam: atraumatic, normocephalic - Eye Eye exam: Present: normal appearance, PERRL, EOMI - ENT ENT exam: Present: mucous membranes moist - Neck Neck exam: Present: normal inspection, full ROM, trachea midline. Absent: tenderness - Chest Chest inspection: Present: normal inspection, symmetric chest wall rise - Respiratory Respiratory exam: Present: normal lung sounds bilaterally. Absent: respiratory distress - Cardiovascular Cardiovascular exam: Present: regular rate, normal rhythm, normal heart sounds - Abdominal Exam Abdominal exam: Present: soft. Absent: distention, tenderness, guarding, rebound, rigidity - Extremities Exam Extremities exam: Present: normal capillary refill - Neurological Exam Neurological exam: Present: alert, oriented X3, CN II-XII intact. Absent: motor sensory deficit - Psychiatric Psychiatric exam: Present: normal affect, normal mood - Skin Skin exam: Present: warm, dry - Other Other exam information: Mild edema left lower extremity, foot. Tenderness proximal femur and posterior hip. Laying with left knee elevated on pillow. No malrotation. Skin intact. Normal pedal pulses, capillary refill, warmth, sensation, and movement of toes.
[2018-06-23 18:38] LABS: Basophils % 0.5 % (0.1-2.0); Eosinophils # 0.3 K/mm3 (0.0-0.4); Eosinophils % 3.7 % (0.1-12.0); Hematocrit 37.5 % (42.0-52.0); Hemoglobin 12.6 g/dL (14.1-18.0); Lymphocytes # 2.6 K/mm3 (0.7-4.5); Lymphocytes % 37.8 % (10-50); Mean Corpuscular HGB Conc 33.7 g/dL (31.8-35.4); Mean Corpuscular Hemoglobin 31.3 pg (27.0-31.2); Mean Corpuscular Volume 92.7 fl (80-94); Mean Platelet Volume 7.1 fl (7.4-10.4); Monocytes # 0.4 K/mm3 (0.1-1.0); Monocytes % 5.9 % (1.7-9.3); Neutrophils # 3.5 K/mm3 (1.8-7.8); Platelet Count 249 K/mm3 (142-424); Red Blood Count 4.04 M/mm3 (4.60-6.20); Red Cell Distribution Width 13.2 % (11.5-17.5); White Blood Count 6.8 K/mm3 (4.8-10.8)
[2018-06-23 18:44] LABS: Albumin/Globulin Ratio 1.1 (1.1-1.8); Anion Gap 14.3 mEq/L (5-15); Bilirubin,Total 0.5 mg/dL (0.2-1.0); Calcium 9.2 mg/dL (8.5-10.1); Globulin 3.6 gm/dl (1.3-3.2); Potassium 4.3 mmoL/L (3.5-5.1); Total Protein,Serum 7.6 gm/dL (6.4-8.2)
--- NOTE | 2018-06-24 07:31 | Pharmacy Consult Notes ---
[facility] Pharmacy VTE Monitoring - Patient Demographics Admission date: 06/23/18 Report Date: 06/24/18 Time: 07:31 Allergies/Adverse Reactions: Patient Allergies No Known Allergies Allergy (Verified 06/23/18 18:05) Height: 1.73 m Weight: 68.067 kg Patient Problems: Current Active Problems Closed left hip fracture (Acute) - VTE Risk Labs: VTE Related Lab Results Hgb 12.6 g/dL (14.1-18.0) L 06/23/18 18:01 Hct 37.5 % (42.0-52.0) L 06/23/18 18:01 Plt Count 249 K/mm3 (142-424) 06/23/18 18:01 BUN 20 mg/dL (7-18) H 06/23/18 18:01 Creatinine 1.33 mg/dL (0.70-1.30) H 06/23/18 18:01 Estimated Creat Clear 45 mL/min (50-200) 06/23/18 18:01 VTE Score: 5 VTE Risk Level: Low Risk - Prophylaxis VTE Prophylaxis Ordered?: Yes Types of VTE Prophylaxis: TEDS Knee High Location of Applied Device: Bilateral Lower Extremeties - VTE Diagnosis Confirmed Treatment or plan recommended: Continue Current Treatment
--- NOTE | 2018-06-24 08:02 | Consult Report ---
History of Present Illness Consult date: 06/24/18 Requesting physician: Nicolas Sharif Consult reason: pre-op evaluation Chief complaint: Pre-op cardiac evaluation Additional Medical History:: 1. Coronary artery disease A. Three-vessel bypass surgery, 1998, [place], [place] 2. Hypertension 3. Hyperlipidemia 4. CKD, stage II 5. Mild anemia History of present illness: 78-year-old white male with history of bypass surgery 1998 presented to the emergency department after a fall with left-sided hip pain. 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 He denies chest pain, pressure or tightness. He denies any syncope. Patient was diagnosed with hip fracture and admitted for further treatment. Cardiology was asked to see the patient for evaluation prior to surgery. Echocardiogram was performed this morning with ejection fraction noted to be greater than 55%. Patient does have some calcification of the aortic valve but the aortic valve is working appropriately. Patient denies any recent exertional chest pain or shortness of breath. He has not seen a mobile security architect in many years. 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 EKG shows sinus rhythm with first-degree AV block and nonspecific ST-T abnormalities unchanged from previous tracings. [facility] History Medical History: Reports:: Atherosclerotic Heart Disease, Gastroesophageal Reflux Disease(GERD), Hyperlipidemia, Hypertension, Myocardial Infarction Denies:: Cancer, Diabetes Mellitus Type 1, Diabetes Mellitus Type 2, MRSA *Have you ever received a pneumonia vaccine?: No *Have you received a flu vaccine this season?: No Other Medical History: Reports: Arthritis, Cataracts Other Surgeries: Yes: CABG, Colonoscopy - *Social History Educational Level: Attended High School Smoking Status: Current some day smoker Tobacco Type: smokeless tobacco # Packs/Day (cigarettes): 1 Alcohol Intake: current Alcohol Intake Frequency:: 0-2 drinks per day *Occupational Status:: retired Household Members: spouse *Travel in the last 8 weeks: None - Psychiatric History Expresses thoughts of harming self/others: None Suicide Plan Description: No Plan Family Hx:: Cancer, Diabetes, Kidney Disease Meds Home Medications Medication Instructions Recorded Confirmed Type Aspirin [Aspirin 325mg Tab] 325 mg PO DAILY 12/25/17 06/23/18 History Ramipril 5 mg PO DAILY 12/25/17 06/23/18 History raNITIdine HCl [Ranitidine HCl] 150 mg PO BID 12/25/17 06/23/18 History Amlodipine Besylate [Amlodipine 5 mg PO DAILY 06/24/18 06/24/18 History 5mg tab] Omeprazole [Omeprazole 20mg 20 mg PO DAILY 06/24/18 06/24/18 History Capsule] Allergies Allergy/AdvReac Type Severity Reaction Status Date / Time No Known Allergies Allergy Verified 06/23/18 18:05 Review of Systems - *Cardiovascular Denies chest pain, Denies shortness of breath with activity - *Respiratory Denies shortness of breath, Denies shortness of breath with activity - *Gastrointestinal Denies abdominal pain, Denies loose stools - *Genitourinary Denies blood in urine - *Musculoskeletal Reports joint pain, Denies back pain - *Neurologic Denies headache(s), Denies numbness, Denies weakness Exam Vital signs and Labs for Last 24 Hours: Temp Pulse Resp BP Pulse Ox 98.8 F 103 H 15 110/56 L 96 06/24/18 04:00 06/24/18 04:00 06/24/18 04:00 06/24/18 04:00 06/24/18 04:00 Laboratory Results - last 24 hr 06/23/18 18:01: WBC 6.8, RBC 4.04 L, Hgb 12.6 L, Hct 37.5 L, MCV 92.7, MCH 31.3 H, MCHC 33.7, RDW 13.2, Plt Count 249, MPV 7.1 L, Neut % (Auto) 52.0, Lymph % (Auto) 37.8, [place] % (Auto) 5.9, Eos % (Auto) 3.7, Baso % (Auto) 0.5, Neut # (Auto) 3.5, Lymph # (Auto) 2.6, [place] # (Auto) 0.4, Eos # (Auto) 0.3, Baso # (Auto) 0.0 06/23/18 18:01: Sodium 143, Potassium 4.3, Chloride 105, Carbon Dioxide 28, Anion Gap 14.3, BUN 20 H, Creatinine 1.33 H, Estimated Creat Clear 45, Estimated GFR 52 L, Est GFR ( Amer) 63, Glucose 108 H, Calcium 9.2, Total Bilirubin 0.5, AST 14 L, ALT 18, Alkaline Phosphatase 95, Total Protein 7.6, Albumin 4.0, Globulin 3.6 H, Albumin/Globulin Ratio 1.1 I & O for Last 24 hours: Intake & Output 06/21/18 06/22/18 06/23/18 06/24/18 11:59 11:59 11:59 11:59 Intake Total 220 / 220 Output Total 200 / 200 Balance / Weight 150 lb 1 oz - *Routine HEENT Exam Head: Present: normocephalic Eye: Present: EOMI, PERRL ENT: Present: mucous membranes moist - *Routine Neck Exam Present: supple, carotid bruit. Absent: JVD - *Routine Respiratory Exam Present: CTA bilaterally. Absent: accessory muscle use, rales, rhonchi, wheezes - *Routine Cardiovascular Exam Present: RRR, murmur. Absent: gallop, rubs - *Routine Abdominal Exam Present: soft. Absent: tenderness, distended, guarding - *Routine Extremities Exam Absent: edema, calf tenderness - *Routine Neurological Exam Present: alert, oriented X3, moving all extremities Assessment and Plan (1) Pre-op evaluation Current visit: Yes Status: Acute Category: Medical Code(s): Z01.818 - Encounter for other preprocedural examination (2) Closed left hip fracture Current visit: Yes Status: Acute Qualifiers: Encounter type: initial encounter Qualified Code(s): S72.002A - Fracture of unspecified part of neck of left femur, initial encounter for closed fracture Category: Medical Code(s): S72.002A - Fracture of unspecified part of neck of left femur, initial encounter for closed fracture (3) ASCVD (arteriosclerotic cardiovascular disease) Current visit: No Status: Chronic Category: Medical Code(s): I25.10 - Atherosclerotic heart disease of [place] coronary artery without angina pectoris (4) Hyperlipidemia Current visit: No Status: Chronic Category: Medical Code(s): E78.5 - Hyperlipidemia, unspecified (5) Hypertension Current visit: No Status: Chronic Category: Medical Code(s): I10 - Essential (primary) hypertension - Assessment and plan all Dx Assessment and Plan for all problems:: 1. Patient is felt to be a low and acceptable risk to proceed with left hip surgery. Echocardiogram shows normal left ventricular ejection fraction and patient denies any exertional angina recently. 2. Patient has a cardiac murmur felt to be aortic sclerosis without stenosis. 3. Patient is noted to have bilateral carotid bruits versus radiation murmur from the aortic sclerosis. A carotid Doppler will be ordered for further evaluation. 4. After the patient's surgery and recovery he will need further cardiac follow-up.
--- NOTE | 2018-06-24 08:29 | Consult Report ---
*Admission Date: 06/23/18 *Chief complaint: Left hip pain after a fall *History of present illness: Patient is a pleasant 78-year-old male admitted to hospital last night for management of his left hip fracture. He sustained the injury when he fell landing on his left hip while trying to change a bolt. He immediately felt severe pain in his hip and could not weight-bear and walk. He presented to the ER where x-rays showed a minimally displaced basicervical type of femoral neck fracture. This morning he is complaining of pain in his left hip and left thigh worse with any attempted movements. No history of any distal tingling or numbness. He denies any other injury. No history of any dizziness, headache, chest or neck pain. He lives with his and usually is mobile and walks independently without any walking aids. He says the pain is well controlled at rest but trying to move the LEFT leg causes hip pain. He denies loss of consciousness, chest pain and shortness of breath. He also has history of long- standing left knee pain. He says he was diagnosed with left knee arthritis and has had physical therapy and other conservative management without significant improvement. His past medical history includes hypertension, hyperlipidemia, coronary artery disease and chronic kidney disease. History of prior coronary artery bypass surgery in the s. Does not currently have a black pickler. He is not on any blood thinners. He also has chronic edema of his left lower extrem ity, has had extensive workup, negative. Review of Systems - Review of Systems Review of systems:: pertinent systems reviewed and negative unless documented below - Constitutional Denies chills, Denies fever(s) - Eyes Denies blurry vision, Denies change in vision - ENT Denies abnormal hearing, Denies headache(s), Denies hoarseness - *Cardiovascular Denies chest pain, Denies shortness of breath with activity - *Respiratory Denies cough, Denies shortness of breath - *Gastrointestinal Denies abdominal pain, Denies change in bowel habits - *Musculoskeletal Reports joint pain, Reports limited joint movement - *Neurologic Denies headache(s), Denies numbness, Denies weakness [facility] History I have reviewed the patient's past medical history: Yes Medical History: Reports:: Atherosclerotic Heart Disease, Gastroesophageal Reflux Disease(GERD), Hyperlipidemia, Hypertension, Myocardial Infarction Denies:: Cancer, Diabetes Mellitus Type 1, Diabetes Mellitus Type 2, MRSA *Have you ever received a pneumonia vaccine?: No *Have you received a flu vaccine this season?: No Other Medical History: Reports: Arthritis, Cataracts Other Surgeries: Yes: CABG, Colonoscopy - *Social History Educational Level: Attended High School Smoking Status: Current some day smoker Tobacco Type: smokeless tobacco # Packs/Day (cigarettes): 1 Alcohol Intake: current Alcohol Intake Frequency:: 0-2 drinks per day *Occupational Status:: retired Household Members: spouse *Travel in the last 8 weeks: None - Psychiatric History Expresses thoughts of harming self/others: None Suicide Plan Description: No Plan Family Hx:: Cancer, Diabetes, Kidney Disease Meds Home Medications Medication Instructions Recorded Confirmed Type Aspirin [Aspirin 325mg Tab] 325 mg PO DAILY 12/25/17 06/23/18 History Ramipril 5 mg PO DAILY 12/25/17 06/23/18 History raNITIdine HCl [Ranitidine HCl] 150 mg PO BID 12/25/17 06/23/18 History Amlodipine Besylate [Amlodipine 5 mg PO DAILY 06/24/18 06/24/18 History 5mg tab] Omeprazole [Omeprazole 20mg 20 mg PO DAILY 06/24/18 06/24/18 History Capsule] Allergies Allergy/AdvReac Type Severity Reaction Status Date / Time No Known Allergies Allergy Verified 06/23/18 18:05 Exam Vital signs and Labs for Last 24 Hours: Temp Pulse Resp BP Pulse Ox 97.9 F 102 H 18 137/72 98 06/24/18 08:00 06/24/18 08:00 06/24/18 08:00 06/24/18 08:00 06/24/18 08:00 Laboratory Results - last 24 hr 06/23/18 18:01: WBC 6.8, RBC 4.04 L, Hgb 12.6 L, Hct 37.5 L, MCV 92.7, MCH 31.3 H, MCHC 33.7, RDW 13.2, Plt Count 249, MPV 7.1 L, Neut % (Auto) 52.0, Lymph % (Auto) 37.8, [place] % (Auto) 5.9, Eos % (Auto) 3.7, Baso % (Auto) 0.5, Neut # (Auto) 3.5, Lymph # (Auto) 2.6, [place] # (Auto) 0.4, Eos # (Auto) 0.3, Baso # (Auto) 0.0 06/23/18 18:01: Sodium 143, Potassium 4.3, Chloride 105, Carbon Dioxide 28, Anion Gap 14.3, BUN 20 H, Creatinine 1.33 H, Estimated Creat Clear 45, Estimated GFR 52 L, Est GFR ( Amer) 63, Glucose 108 H, Calcium 9.2, Total Bilirubin 0.5, AST 14 L, ALT 18, Alkaline Phosphatase 95, Total Protein 7.6, Albumin 4.0, Globulin 3.6 H, Albumin/Globulin Ratio 1.1 I & O for Last 24 hours: Intake & Output 06/21/18 06/22/18 06/23/18 06/24/18 11:59 11:59 11:59 11:59 Intake Total 220 / 220 Output Total 200 / 200 Balance Weight 150 lb 1 oz - Constitutional no acute distress, average body habitus, cooperative - *Routine HEENT Exam Head: Present: normocephalic, atraumatic Eye: Present: EOMI ENT: Present: mucous membranes moist - *Routine Neck Exam Present: supple, full ROM, trachea midline. Absent: lymphadenopathy - *Routine Respiratory Exam Present: CTA bilaterally. Absent: respiratory distress - *Routine Cardiovascular Exam Present: RRR, Normal S1, Normal S2, murmur - *Routine Abdominal Exam Present: soft, normoactive bowel sounds. Absent: organomegaly - *Routine Extremities Exam Comments: On examination of his lower extremities, there is shortening of the LEFT leg compared to the right. There is mild edema of the left leg and foot. On examination of the LEFT hip the skin is normal. No rashes or lesions noted. There is is tender over the LEFT hip. Any attempted movements of the LEFT hip are painful. He has diffuse tenderness over the left knee. Movements of the left knee are not tested because of the known hip fracture. Thigh and calf are soft and nontender. Dorsalis pedis and posterior tibial pulses are palpable 2+ bilaterally. Sensation is grossly intact. He has good range of foot, ankle and toe movements. Diagnostic imaging: X-rays of his pelvis AP view, LEFT hip AP and lateral views and LEFT femur AP and lateral views are showing a minimally displaced, basicervical fracture of the LEFT proximal femur. Hip joint is fairly well- preserved. The distal femur appears normal. Degenerative arthritic changes noted in the right knee. - *Routine Skin Exam Present: intact, warm, normal turgor - *Routine Neurological Exam Present: alert, oriented X3, CN II-XII intact - Routine Psychiatric Exam Present: normal affect, cooperative Results - Labs Result Diagrams: 06/23/18 18:01 06/23/18 18:01 Labs: Abnormal lab results 06/23/18 06/23/18 Range/Units 18:01 18:01 RBC 4.04 L (4.60-6.20) M/mm3 Hgb 12.6 L (14.1-18.0) g/dL Hct 37.5 L (42.0-52.0) % MCH 31.3 H (27.0-31.2) pg MPV 7.1 L (7.4-10.4) fl BUN 20 H (7-18) mg/dL Creatinine 1.33 H (0.70-1.30) mg/dL Estimated GFR 52 L (>60) ml/min Glucose 108 H (74-106) mg/dL AST 14 L (15-37) U/L Globulin 3.6 H (1.3-3.2) gm/dl H & H 06/23/18 Range/Units 18:01 Hgb 12.6 L (14.1-18.0) g/dL Hct 37.5 L (42.0-52.0) % All other labs normal. Assessment and Plan (1) Pre-op evaluation Current visit: Yes Status: Acute Category: Medical Code(s): Z01.818 - Encounter for other preprocedural examination (2) Closed left hip fracture Current visit: Yes Status: Acute Qualifiers: Encounter type: initial encounter Qualified Code(s): S72.002A - Fracture of unspecified part of neck of left femur, initial encounter for closed fracture Category: Medical Code(s): S72.002A - Fracture of unspecified part of neck of left femur, initial encounter for closed fracture (3) ASCVD (arteriosclerotic cardiovascular disease) Current visit: No Status: Chronic Category: Medical Code(s): I25.10 - Atherosclerotic heart disease of [place] coronary artery without angina pectoris (4) Hyperlipidemia Current visit: No Status: Chronic Category: Medical Code(s): E78.5 - Hyperlipidemia, unspecified (5) Hypertension Current visit: No Status: Chronic Category: Medical Code(s): I10 - Essential (primary) hypertension - Assessment and plan all Dx Assessment and Plan for all problems:: I have reviewed the clinical and x-ray findings with the patient and his who was with him in the room. I have discussed the diagnosis, natural history and management options in detail including both nonsurgical and surgical. I have recommended a CT scan of his left hip for further characterization of the fracture. I have discussed the management options and given the fracture pattern, I have recommended surgical remediation. I have discussed about the fracture fixation with either a cephalo-medullary nailing or a dynamic hip screw fixation along with a derotation screw. In my opinion, given the fracture site with potential for rotational instability, the DHS fixation with additional derotation screw fixation would be a better option. Also patient has advanced degenerative arthritis in his left knee and is contemplating a total knee arthroplasty in future. Fixation of the hip fracture with a DHS would be the better option in this regard. I have explained the procedure, risks and benefits, alternatives and the expected postoperative course. I explained to the patient and her about the fracture and the proposed surgical procedure utilizing paper copies of x-rays and drawings . The complications discussed include but are not limited to infection, bleeding, injury to nerves and blood vessels, DVT, PE, screw cut-out/implant failure, loss of fixation, nonunion, malunion/malrotation, osteonecrosis of the femoral head, femoral shaft fracture, painful hardware, heterotopic ossification, stiffness, weakness, incomplete relief of pain, incomplete return of function or motion and the likely need for further surgery in future, and anesthetic/medical complications including heart attack, stroke, transfusion reactions or . We discussed how any of these events can be devastating. I've explained that the patient is at a significant surgical risk due to his age, cardiac and other medical issues, and fragility of the bone. Patient and his seemed to understand and accept these risks. We have discussed nonsurgical alternatives as well. The nonoperative management would essentially consist of prolonged bed rest and traction (skeletal/skin) in bed and pain medication and has exceptionally poor outcome. This could result in nonunion and malunion of the fracture and almost certainly, the patient has a very high risk of decubitus ulcers, UTI, respiratory tract infections, DVT/PE and other complications from being bedridden. I have explained to them that the standard of care for this type of injuries is surgical throughout the country unless the patient is very ill for surgical management. We also discussed the postoperative course including the rehab and physical therapy required. He lives with his and may need to go to a retirement facility for rehab after surgery. All their questions were answered and they verbalized a good understanding. Patient understood the risks, agreed to proceed with surgery and no guarantees or assurances were given or implied. The limb was marked appropri ately and initialed by me. I have recommended- Electrocardiogram Type and screen Nothing by mouth Continue IV fluids DVT prophylaxis as per protocol Analgesia as needed Consent patient for a dynamic hip screw fixation/cephalo-medullary nailing LEFT hip. Order 2 g of IV Ancef for preoperative prophylaxis to start half an hour before surgery I am planning to take him for surgery at the earliest opportunity today once he is medically cleared. Continue medical management as per Dr. Sharif. Thank you for the opportunity to take part in the care of this very pleasant patient.
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
--- NOTE | 2018-06-24 09:35 | Carotid Imaging Report ---
"Cerebrovascular Exam Indications: 785.9 Bruit. IMPRESSIONS 1. The bilateral vertebral arteries are patent with normal antegrade flow. 2. Study suggests 50-69% stenosis involving the right internal carotid artery. 3. Study suggests 20-49% stenosis involving the left internal carotid artery. History: Coronary artery disease. Risk factors: Hypertension. Carotid duplex study. Complete study and Doppler flow study including spectral analysis, color and sandhu scale imaging. Location: Bedside. Patient status: Inpatient. Tables: Arterial flow: + +--------+--------+ |Location |V sys |V ed | + +--------+--------+ |Right CCA - proximal|101cm/s |25.1cm/s| + +--------+--------+ |Right CCA - distal |136cm/s |33.8cm/s| + +--------+--------+ |Right ECA |269cm/s |12.3cm/s| + +--------+--------+ |Right ICA - proximal|385cm/s |70.7cm/s| + +--------+--------+ |Right ICA - mid |114cm/s |27.8cm/s| + +--------+--------+ |Right ICA - distal |120cm/s |28.5cm/s| + +--------+--------+ |Right vertebral |67.8cm/s|16.9cm/s| + +--------+--------+ |Left CCA - proximal |183cm/s |23.3cm/s| + +--------+--------+ |Left CCA - distal |133cm/s |23.4cm/s| + +--------+--------+ |Left ECA |207cm/s |22.4cm/s| + +--------+--------+ |Left ICA - proximal |155cm/s |37cm/s | + +--------+--------+ |Left ICA - mid |148cm/s |39.3cm/s| + +--------+--------+ |Left ICA - distal |144cm/s |27.8cm/s| + +--------+--------+ |Left vertebral |21.6cm/s|8.9cm/s | + +--------+--------+ Velocity ratios: + + + + + + | |Right, V sys|Right, V ed|Left, V sys|Left, V ed| + + + + + + |Max ICA/dist CCA|2.83 |2.09 |1.17 |1.68 | + + + + + + (Report amended ) Electronically signed by: Jimi Aguirre [id number]"
--- NOTE | 2018-06-24 14:26 | Progress Note ---
[facility] Anesthesia Checklist - Patient Identification Patient Identification: Arm Band - Structural Data Admitted From: Inpatient Planned Operative Procedure/s: left hip screw fixation Consent for Planned Operative Procedure(s) Verified: Yes Verified Documents: Surgical Consent, History and Physical - NPO Status Verified Time NPO: 00:00 - Additional verifications Anesthesia Reactions: No - Airway Assessment C-Spine Mobility Assessed: Yes TMJ Mobility Assessed: Yes Dentition: Edentulous - Neurological Assessment Level of Consciousness: Awake, Alert - Anesthesia Plan Anesthesia Risk discussed: Yes Anesthesia Plan: Verified ASA Class: III Anesthesia Type: Spinal [facility] History I have reviewed the patient's past medical history: Yes Medical History: Reports:: Atherosclerotic Heart Disease, Coronary Artery Disease, Gastroesophageal Reflux Disease(GERD), Heart Murmur, Hyperlipidemia, Hypertension, Kidney Stones Denies:: Cancer, Cerebrovascular Accident, Deep Vein Thrombosis, Diabetes Mellitus Type 1, Diabetes Mellitus Type 2, MRSA, Myocardial Infarction *Have you ever received a pneumonia vaccine?: No *Have you received a flu vaccine this season?: No Other Medical History: Reports: Arthritis, Cataracts, Sinus Problems Other Surgeries: Yes: CABG, Colonoscopy, EGD, Other (neck sx) - *Social History Educational Level: Attended High School Smoking Status: Current some day smoker Tobacco Type: smokeless tobacco # Packs/Day (cigarettes): 1 Alcohol Intake: current Alcohol Intake Frequency:: 0-2 drinks per day *Occupational Status:: retired, 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
--- NOTE | 2018-06-24 19:58 | Progress Note ---
[facility] Anesthesia Record Part I Intake, IV Amount: 2,400 Estimated blood loss (mL): 200 Urine output (mL): 250 Blood Pressure: 144/86 SaO2: 98 Pulse Rate: 108 Respiratory Rate: 14 Temperature: 99 F Patient is:: Awake, Stable Stable to PACU at:: 19:50
--- NOTE | 2018-06-24 19:58 | Progress Note ---
[facility] Anesthesia Record Part II Discharge Time: 20:20 Destination: floor PACU nurse assessment reviewed?: Yes Patient Condition:: Good Anesthesia Complications:: None Swallowing reflex intact?: Yes Cyanosis?: No
--- NOTE | 2018-06-24 20:28 | Operative Note ---
Date of procedure: 06/24/18 Pre-op Diagnosis:: Closed fracture neck of femur, left hip Post-op Diagnosis:: Same Procedure performed:: DHS fixation with derotation screw, left hip Surgeon:: Shreyas Pate MD COMPLIANCE CONSULTANT:: Justo Girard Anesthesia: spinal Estimated blood loss (mL): 200 Clinical Note:: Patient is a 78-year-old male who sustained a basicervical type of left femoral neck fracture following a mechanical fall yesterday. Following evaluation in the emergency room where x-ray showed a minimally displaced basicervical fracture of the left proximal femur, he was admitted for further management. A CT scan of his left hip was obtained for further characterization of the fracture. After evaluating him, I have discussed the diagnosis and management options in detail including nonsurgical and surgical, with the [patient and his . Prior to the injury patient was active and mobile independently.] After a detailed discussion with the patient and his a decision was made to fix the fracture internally with a dynamic hip screw along with an additional derotation screw. I have discussed the procedure, risks and benefits, postoperative re covery and rehabilitation and the expected outcomes. The complications discussed include but are not limited to DVT, PE, infection, bleeding, injury to nerves and blood vessels, screw cut-out/implant failure, loss of fixation, nonunion, malunion/malrotation, osteonecrosis of the femoral head, femoral shaft fracture, painful hardware, heterotopic ossification, stiffness, weakness, incomplete relief of pain, incomplete return of function or motion and the likely need for further surgery in future, and anesthetic/medical complications including heart attack, stroke, transfusion reaction or . The [patient and his ] wished to proceed with the surgical remediation. Consent form was reviewed and signed by me. The limb was appropriately marked and initialed by me. Following appropriate preoperative workup, medical and cardiac clearance, he was brought to the operating room for surgery. The surgery is indicated to reduce and stabilize the fracture, relieve pain and improve function. Operative findings:: Closed minimally displaced basicervical fracture left proximal femur as noted on the preoperative imaging. The fracture is well reduced with closed manipulation prior to fixation. Bone quality is good. Operative note:: Following appropriate preoperative workup and medical/cardiac clearance, patient was brought to the operating room and a spinal anesthesia was administered. Patient was then positioned supine on the fracture table and all the bony prominences were appropriately padded. The left foot was secured in the footpla te and the footplate was attached to the fracture table. The right leg was placed out of the way in a leg mcgill. Under fluoroscopic guidance the fracture was noted to be well reduced on both AP and lateral views. The left hip and thigh were then prepped and draped in the usual sterile fashion. Administration of prophylactic antibiotics was confirmed with the anesthetic team (2 g of IV Ancef was administered). A preprocedure timeout was performed as per the hospital protocol. Under fluoroscopy, the desired position of the lag screw was marked on the skin and also the level of the greater and lesser trochanters was marked. A straight lateral skin incision was made starting at the vastus ridge and slighlty posterior to the midline and carried down along the line of the femoral shaft for about 7 cm. Blunt dissection was carried to the subcutaneous tissue and the fascia shira was incised in line with the skin incision exposing the vastus lateralis. The vastus lateralis muscle was split in line with the skin incision gaining exposure to the lateral femoral shaft. I then placed the guidewire for the lag screw the fluoroscopic control in center-center position on both A/P and lateral views using the 135 angle guide. After confirming appropriate placement of the guidewire, the desired lag screw length was measured and noted to be 100 mm. I then placed a second guidewire superior to the first 1 to control the rotation of the femoral head while reaming and advancing the lag screw. Again after confirming appropriate positioning of the second guidewire under fluoroscopic control, the femoral neck was reamed over the first guidewire using the triple reamer. I then tapped over the guidewire prior to screw placement. The selected lag screw was then placed and advanced into position under fluoroscopic control. A 4 holed, 135 angled short barrel plate was selected and placed over the lag screw, traction was reduced and the plate impacted into place along the lateral cortex of the femur. Then the plate was fixed to the femoral shaft with 4.5 mm cortical screws. The distal screw was applied as a unicortical screw to decrease stress riser. I then inserted a compression screw and obtained good compression at the fracture site. The compression screw was left in place to reduce the risk of screw-barrel disengagement. I then measured the required screw length and drilled over the second guidewire using the cannulated drill for placement of a derotation screw. A 6.5 mm x 85 mm x 32 mm thread cannulated hip screw with washer was placed over the guidewire and advanced into position. The guidewire was then removed. Fluoroscopic screening was performed in both the AP and lateral views. The reduction and fixation were noted to be satisfactory and stable. Fluoroscopic images were obtained and stored digitally. The incision was copiously irrigated with normal saline and hemostasis was obtained with the diathermy cautery. The incision was then closed in layers with the 0 Vicryl,, 0 Vicryl, 2-0 Vicryl and 4-0 Monocryl subcuticular sutures, Dermabond and Steri-Strips/to the skin. Sterile dressings were applied. The foot was taken out of the foot mcgill and t he opposite leg out of the leg mcgill and placed on the table extension. The limb lengths were noted to be equal and there was no rotational malalignment. Dorsalis pedis and posterior tibial pulses were 2+ on both sides. At the end of the procedure, swab, needle and instrument counts were correct according to the scrub team. Patient was then transferred onto the bed. Patient was then transported to the PACU in a stable condition. Patient tolerated the procedure well and there were no immediate complications. Portable x-rays of the hip AP and cross-table lateral views were obtained in the PACU and were noted to be satisfactory. Postoperatively patient will receive 2 further doses of prophylactic antibiotics, DVT prophylaxis as per protocol and IV and oral analgesia as needed. Medical management as per Dr. Sharif's team. Patient can be mobilized on the first postoperative day with a walker, weight bearing on the left side as tolerated. Implants: Synthes 4-holed x 135 degree angle shot barrel plate, 100 mm lag screw, compression screw, 4.5 mm cortical screws(x4). Synthes 6.5 mm x 85 mm (32 mm thread) cannulated hip screw with washer. Condition: stable Disposition: PACU Specimens:: None Complications:: None
[2018-06-25 07:29] LABS: Basophils % 0.1 % (0.1-2.0); Eosinophils % 0.1 % (0.1-12.0); Hematocrit 33.1 % (42.0-52.0); Hemoglobin 11.1 g/dL (14.1-18.0); Lymphocytes # 1.5 K/mm3 (0.7-4.5); Lymphocytes % 12.9 % (10-50); Mean Corpuscular HGB Conc 33.7 g/dL (31.8-35.4); Mean Corpuscular Hemoglobin 31.6 pg (27.0-31.2); Mean Corpuscular Volume 93.9 fl (80-94); Mean Platelet Volume 7.1 fl (7.4-10.4); Monocytes # 0.8 K/mm3 (0.1-1.0); Monocytes % 6.9 % (1.7-9.3); Neutrophils # 9.1 K/mm3 (1.8-7.8); Platelet Count 179 K/mm3 (142-424); Red Blood Count 3.52 M/mm3 (4.60-6.20); Red Cell Distribution Width 12.8 % (11.5-17.5); White Blood Count 11.4 K/mm3 (4.8-10.8)
[2018-06-25 07:33] LABS: Albumin Level 2.9 gm/dL (3.4-5.0); Albumin/Globulin Ratio 0.9 (1.1-1.8); Anion Gap 10.2 mEq/L (5-15); Bilirubin,Total 1.2 mg/dL (0.2-1.0); Globulin 3.2 gm/dl (1.3-3.2); Potassium 4.2 mmoL/L (3.5-5.1); Total Protein,Serum 6.1 gm/dL (6.4-8.2)
[2018-06-25 07:45] LABS: Calcium 8.1 mg/dL (8.5-10.1)
--- NOTE | 2018-06-25 08:27 | Progress Note ---
<Dayami Loya - Last Filed: 06/25/18 08:24> Internal Medicine - PN: Subj *Date: 06/25/18 *Time: 08:24 Interval history: Patient states he is having some pain in his hip this morning. He just received some pain medication and is very tired. His son states he was confused throughout the night but seems to be better this morning. He ate only a tiny amount of breakfast and states he has no appetite. Exam Vital signs and Labs for Last 24 Hours: Temp Pulse Resp BP Pulse Ox 98.9 F 108 H 16 160/77 H 94 L 06/25/18 04:00 06/25/18 04:00 06/25/18 04:00 06/25/18 04:00 06/25/18 04:00 Laboratory Results - last 24 hr 06/24/18 13:47: Blood Type A Positive, Antibody Screen Negative 06/24/18 17:00: Urine Color Yellow, Urine Appearance Clear, Urine pH 6.0, Ur Specific [place] >= 1.030, Urine Protein Negative, Urine Glucose (UA) Negative, Urine Ketones 1+, Urine Blood Negative, Urine Nitrate Negative, Urine Bilirubin Negative, Urine Urobilinogen 0.2, Ur Leukocyte Esterase Negative, Urine RBC None, Urine WBC 3-5, Ur Squamous Epith Cells None, Ur Transition Epith Cell 3-5, Urine Bacteria Trace 06/25/18 07:00: WBC 11.4 H D, RBC 3.52 L, Hgb 11.1 L, Hct 33.1 L, MCV 93.9, MCH 31.6 H, MCHC 33.7, RDW 12.8, Plt Count 179 D, MPV 7.1 L, Neut % (Auto) 80.0, Lymph % (Auto) 12.9, Snyder % (Auto) 6.9, Eos % (Auto) 0.1, Baso % (Auto) 0.1, Neut # (Auto) 9.1 H, Lymph # (Auto) 1.5, Snyder # (Auto) 0.8, Eos # (Auto) 0.0, Baso # (Auto) 0.0 06/25/18 07:00: Sodium 134 L, Potassium 4.2, Chloride 102, Carbon Dioxide 26, Anion Gap 10.2, BUN 14 D, Creatinine 0.87 D, Estimated Creat Clear 60, Estimated GFR 85, Est GFR ( Amer) 103 D, Glucose 111 H, Calcium 8.1 L D, Total Bilirubin 1.2 H, AST 24 D, ALT 15, Alkaline Phosphatase 71, Total Protein 6.1 L, Albumin 2.9 L, Globulin 3.2, Albumin/Globulin Ratio 0.9 L I & O for Last 24 hours: Intake & Output 06/22/18 06/23/18 06/24/18 06/25/18 11:59 11:59 11:59 11:59 Intake Total 220 / 220 [facility] / 4081 Output Total 200 / 200 Balance [facility] / 4081 Weight 150 lb 1 oz 153 lb 9 oz - Constitutional no acute distress - *Routine Respiratory Exam Present: CTA bilaterally - *Routine Cardiovascular Exam Present: RRR - *Routine Abdominal Exam Present: soft, normoactive bowel sounds. Absent: tenderness - *Routine Extremities Exam Present: tenderness (over surgical site on the left hip, dressing in place). Absent: cyanosis, clubbing, edema Assessment and Plan (1) Pre-op evaluation Current visit: Yes Status: Acute Category: Medical Code(s): Z01.818 - Encounter for other preprocedural examination (2) Closed left hip fracture Current visit: Yes Status: Acute Qualifiers: Encounter type: initial encounter Qualified Code(s): S72.002A - Fracture of unspecified part of neck of left femur, initial encounter for closed fracture Category: Medical Code(s): S72.002A - Fracture of unspecified part of neck of left femur, initial encounter for closed fracture (3) ASCVD (arteriosclerotic cardiovascular disease) Current visit: No Status: Chronic Category: Medical Code(s): I25.10 - Atherosclerotic heart disease of [place] coronary artery without angina pectoris (4) Hyperlipidemia Current visit: No Status: Chronic Category: Medical Code(s): E78.5 - Hyperlipidemia, unspecified (5) Hypertension Current visit: No Status: Chronic Category: Medical Code(s): I10 - Essential (primary) hypertension - Assessment and plan all Dx Assessment and Plan for all problems:: Will continue pain management. Dr. Pate to follow the patient and order physical therapy. <Nicolas Sharif - Last Filed: 06/25/18 08:31> Exam Vital signs and Labs for Last 24 Hours: Temp Pulse Resp BP Pulse Ox 98.4 F 115 H 18 141/68 H 93 L 06/25/18 08:00 06/25/18 08:00 06/25/18 08:00 06/25/18 08:00 06/25/18 08:25 Laboratory Results - last 24 hr 06/24/18 13:47: Blood Type A Positive, Antibody Screen Negative 06/24/18 17:00: Urine Color Yellow, Urine Appearance Clear, Urine pH 6.0, Ur Specific [place] >= 1.030, Urine Protein Negative, Urine Glucose (UA) Negative, Urine Ketones 1+, Urine Blood Negative, Urine Nitrate Negative, Urine Bilirubin Negative, Urine Urobilinogen 0.2, Ur Leukocyte Esterase Negative, Urine RBC None, Urine WBC 3-5, Ur Squamous Epith Cells None, Ur Transition Epith Cell 3-5, Urine Bacteria Trace 06/25/18 07:00: WBC 11.4 H D, RBC 3.52 L, Hgb 11.1 L, Hct 33.1 L, MCV 93.9, MCH 31.6 H, MCHC 33.7, RDW 12.8, Plt Count 179 D, MPV 7.1 L, Neut % (Auto) 80.0, Lymph % (Auto) 12.9, Snyder % (Auto) 6.9, Eos % (Auto) 0.1, Baso % (Auto) 0.1, Neut # (Auto) 9.1 H, Lymph # (Auto) 1.5, Snyder # (Auto) 0.8, Eos # (Auto) 0.0, Baso # (Auto) 0.0 06/25/18 07:00: Sodium 134 L, Potassium 4.2, Chloride 102, Carbon Dioxide 26, Anion Gap 10.2, BUN 14 D, Creatinine 0.87 D, Estimated Creat Clear 60, Estimated GFR 85, Est GFR ( Amer) 103 D, Glucose 111 H, Calcium 8.1 L D, Total Bilirubin 1.2 H, AST 24 D, ALT 15, Alkaline Phosphatase 71, Total Protein 6.1 L, Albumin 2.9 L, Globulin 3.2, Albumin/Globulin Ratio 0.9 L I & O for Last 24 hours: Intake & Output 06/22/18 06/23/18 06/24/18 06/25/18 23:59 23:59 23:59 23:59 Intake Total 220 / 220 4081 / 4081 240 / 240 Output Total 200 / 200 Balance 220 / 220 3881 / 3881 240 / 240 Weight 149 lb 9 oz 150 lb 1 oz 153 lb 9 oz Assessment and Plan (1) Pre-op evaluation Current visit: Yes Status: Acute Category: Medical Code(s): Z01.818 - Encounter for other preprocedural examination (2) Closed left hip fracture Current visit: Yes Status: Acute Qualifiers: Encounter type: initial encounter Qualified Code(s): S72.002A - Fracture of unspecified part of neck of left femur, initial encounter for closed fracture Category: Medical Code(s): S72.002A - Fracture of unspecified part of neck of left femur, initial encounter for closed fracture (3) ASCVD (arteriosclerotic cardiovascular disease) Current visit: No Status: Chronic Category: Medical Code(s): I25.10 - Atherosclerotic heart disease of [place] coronary artery without angina pectoris (4) Hyperlipidemia Current visit: No Status: Chronic Category: Medical Code(s): E78.5 - Hyperlipidemia, unspecified (5) Hypertension Current visit: No Status: Chronic Category: Medical Code(s): I10 - Essential (primary) hypertension - Assessment and plan all Dx Assessment and Plan for all problems:: Saw patient, agree with above note.
--- NOTE | 2018-06-25 09:41 | Progress Note ---
Addendum entered and electronically signed by Yelena Ybarra APRN 06/25/18 09:58: CNI shows: 1. The bilateral vertebral arteries are patent with normal antegrade flow. 2. Study suggests 50-69% stenosis involving the right internal carotid artery. 3. Study suggests 20-49% stenosis involving the left internal carotid artery. Pt will need a repeat CNI in 6 months. Original Note: Subjective Date: 06/25/18 Time: 09:00 Principal diagnosis: closed left hip fracture Interval history: This is a 78-year-old white gentleman who was admitted to the hospital after sustaining a closed left hip fracture. He did undergo surgical repair of this yesterday. He did tolerate the procedure well. He is complaining of a lot of pain in his left hip this morning. He states that he was given pain medicine and it is starting to work for him a little bit. He does also state that he has been told his heart rate is high but his blood pressure has been under good control. He denies any chest pain or pressure. He denies any shortness of breath or edema. He denies any fever, chills, nausea, vomiting, diarrhea, PND or orthopnea. Exam Vital signs and Labs for Last 24 Hours: Temp Pulse Resp BP Pulse Ox 98.4 F 115 H 18 141/68 H 93 L 06/25/18 08:00 06/25/18 08:00 06/25/18 08:00 06/25/18 08:00 06/25/18 08:25 Laboratory Results - last 24 hr 06/24/18 13:47: Blood Type A Positive, Antibody Screen Negative 06/24/18 17:00: Urine Color Yellow, Urine Appearance Clear, Urine pH 6.0, Ur Specific [place] >= 1.030, Urine Protein Negative, Urine Glucose (UA) Negative, Urine Ketones 1+, Urine Blood Negative, Urine Nitrate Negative, Urine Bilirubin Negative, Urine Urobilinogen 0.2, Ur Leukocyte Esterase Negative, Urine RBC None, Urine WBC 3-5, Ur Squamous Epith Cells None, Ur Transition Epith Cell 3-5, Urine Bacteria Trace 06/25/18 07:00: WBC 11.4 H D, RBC 3.52 L, Hgb 11.1 L, Hct 33.1 L, MCV 93.9, MCH 31.6 H, MCHC 33.7, RDW 12.8, Plt Count 179 D, MPV 7.1 L, Neut % (Auto) 80.0, Lymph % (Auto) 12.9, [place] % (Auto) 6.9, Eos % (Auto) 0.1, Baso % (Auto) 0.1, Neut # (Auto) 9.1 H, Lymph # (Auto) 1.5, [place] # (Auto) 0.8, Eos # (Auto) 0.0, Baso # (Auto) 0.0 06/25/18 07:00: Sodium 134 L, Potassium 4.2, Chloride 102, Carbon Dioxide 26, Anion Gap 10.2, BUN 14 D, Creatinine 0.87 D, Estimated Creat Clear 60, Estimated GFR 85, Est GFR ( Amer) 103 D, Glucose 111 H, Calcium 8.1 L D, Total Bilirubin 1.2 H, AST 24 D, ALT 15, Alkaline Phosphatase 71, Total Protein 6.1 L, Albumin 2.9 L, Globulin 3.2, Albumin/Globulin Ratio 0.9 L I & O for Last 24 hours: Intake & Output 06/22/18 06/23/18 06/24/18 06/25/18 23:59 23:59 23:59 23:59 Intake Total 220 / 220 4081 / 4081 240 / 240 Output Total 200 / 200 Balance 220 / 220 3881 / 3881 240 / 240 Weight 149 lb 9 oz 150 lb 1 oz 153 lb 9 oz - Constitutional no acute distress, average body habitus - *Routine HEENT Exam Head: Present: normocephalic, atraumatic Eye: Present: EOMI, PERRL ENT: Present: mucous membranes moist - *Routine Neck Exam Present: supple, full ROM, normal carotid upstroke. Absent: JVD, carotid bruit, lymphadenopathy - *Routine Respiratory Exam Present: CTA bilaterally - *Routine Cardiovascular Exam Present: RRR, Normal S1, Normal S2. Absent: murmur, gallop - *Routine Abdominal Exam Present: soft, normoactive bowel sounds. Absent: tenderness, distended - *Routine Extremities Exam Present: full ROM, pulses intact, normal capillary refill. Absent: cyanosis, clubbing, edema - *Routine Skin Exam Present: intact, warm. Absent: erythema, rash - *Routine Neurological Exam Present: alert, oriented X3, CN II-XII intact. Absent: sensory deficit, motor deficit - Detailed Eye Exam Eyelids: Left normal inspection Progress Note: A&P (1) Closed left hip fracture Status: Acute Current Visit: Yes (2) ASCVD (arteriosclerotic cardiovascular disease) Status: Chronic Current Visit: No (3) Hyperlipidemia Status: Chronic Current Visit: No (4) Hypertension Status: Chronic Current Visit: No (5) History of coronary artery bypass graft Status: Chronic Current Visit: Yes Assessment and Plan for All Diagnoses:: Plan: 1. The patient was admitted to the hospital with a closed left hip fracture. He is status post surgical repair of the left hip fracture. 2. The patient does complain of pain in his left hip. Will defer pain management to his primary care provider and orthopedic surgeon. 3. The patient does have some sinus tachycardia today. This is most likely secondary to his pain in his left hip. We will continue to follow his heart rate. At this time Dr. Tirado does not want to treat his tachycardia as this is likely a normal pain response. 4. The patient's blood pressure is well controlled. 5. The patient does have a history of coronary artery disease. He is status post coronary artery bypass grafting. He denies any chest pain or pressure. No plans for invasive cardiac testing at this time. 6. His LDL goal is less than 55. 7. 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 8. Further recommendations will be made pending the patient's response to treatment. Thank you for the opportunity to help participate in the care of this patient.
--- NOTE | 2018-06-25 13:03 | Progress Note ---
Subjective Date: 06/25/18 Time: 11:40 Principal diagnosis: closed left hip fracture Interval history: Patient is status post DHS fixation LEFT hip post op day # 1. He is lying down in bed. Patient says has been doing well today and has been eating and drinking well. He reports some pain over his left hip and says it is well controlled with medication. No history of any fevers, chills or rigors. No history of any nausea, vomiting, chest pain or SOB. PN: Obj Ex Vital signs: Temp Pulse Resp BP Pulse Ox 97.9 F 110 H 16 140/78 94 L 06/25/18 11:39 06/25/18 11:39 06/25/18 11:39 06/25/18 11:39 06/25/18 11:39 Narrative: Laboratory Results - last 24 hr 06/24/18 13:47: Blood Type A Positive, Antibody Screen Negative 06/24/18 17:00: Urine Color Yellow, Urine Appearance Clear, Urine pH 6.0, Ur Specific [place] >= 1.030, Urine Protein Negative, Urine Glucose (UA) Negative, Urine Ketones 1+, Urine Blood Negative, Urine Nitrate Negative, Urine Bilirubin Negative, Urine Urobilinogen 0.2, Ur Leukocyte Esterase Negative, Urine RBC None, Urine WBC 3-5, Ur Squamous Epith Cells None, Ur Transition Epith Cell 3-5, Urine Bacteria Trace 06/25/18 07:00: WBC 11.4 H D, RBC 3.52 L, Hgb 11.1 L, Hct 33.1 L, MCV 93.9, MCH 31.6 H, MCHC 33.7, RDW 12.8, Plt Count 179 D, MPV 7.1 L, Neut % (Auto) 80.0, Lymph % (Auto) 12.9, [place] % (Auto) 6.9, Eos % (Auto) 0.1, Baso % (Auto) 0.1, Neut # (Auto) 9.1 H, Lymph # (Auto) 1.5, [place] # (Auto) 0.8, Eos # (Auto) 0.0, Baso # (Auto) 0.0 06/25/18 07:00: Sodium 134 L, Potassium 4.2, Chloride 102, Carbon Dioxide 26, Anion Gap 10.2, BUN 14 D, Creatinine 0.87 D, Estimated Creat Clear 60, Estimated GFR 85, Est GFR ( Amer) 103 D, Glucose 111 H, Calcium 8.1 L D, Total Bilirubin 1.2 H, AST 24 D, ALT 15, Alkaline Phosphatase 71, Total Protein 6.1 L, Albumin 2.9 L, Globulin 3.2, Albumin/Globulin Ratio 0.9 L Intake & Output 06/23/18 06/24/18 06/25/18 06/26/18 11:59 11:59 11:59 11:59 Intake Total 220 / 220 4321 / 4321 Output Total 200 / 200 1100 / 1100 Balance 3221 / 3221 Weight 150 lb 1 oz 153 lb 9 oz Exam: General appearance: Alert, awake, no acute distress Cardiovascular: regular rate & rhythm Respiratory: no respiratory distress, breathing is nonlabored and speaks in full sentences. ABD: soft and nontender. Bowel sounds heard over all 4 quadrants. On examination of her LEFT lower extremity, the limb lengths are equal. The alignment is neutral. The dressings over the LEFT hip are clean, dry and intact. Attempted movements of the LEFT hip are painful. Distal neurovascular status is intact. Thigh and calf are soft and nontender. No clinical signs of DVT. - Urinary Catheter Management Coude Cath placed during this visit: yes Urethral indwelling: Yes Reason for continuing: Surgical procedure Insertion date: 06/24/18 Insertion time: 17:00 Progress Note: A&P (1) Closed left hip fracture Status: Acute Current Visit: Yes (2) ASCVD (arteriosclerotic cardiovascular disease) Status: Chronic Current Visit: No (3) Hyperlipidemia Status: Chronic Current Visit: No (4) Hypertension Status: Chronic Current Visit: No (5) History of coronary artery bypass graft Status: Chronic Current Visit: Yes Assessment and Plan for All Diagnoses:: I have reviewed the findings, procedure performed and progress with the patient and family. He can be mobilized/transferred with a walker and with the help of physical therapist weightbearing on the LEFT side as tolerated. Continue PT/OT, pain management with as needed analgesics. Discontinue IV fluids. Care management looking into discharge planning. Recommend DVT prophylaxis for 5 weeks postop- the appropriate agents include Lovenox, Aspirin 325 mg, Xarelto (R ivaroxaban), Eliquis (apixaban) and Coumadin. Follow-up in my office in 2 weeks time with check x-ray. Please feel free to call our office at [phone] for any orthopaedic questions. Medical management as per Dr. Holland team.
--- NOTE | 2018-06-25 18:44 | Cardiology Report ---
PROCEDURE: 2-D M-mode and color Doppler study INDICATIONS FOR THE TEST: Chest pain COPD Heart Murmur Tobacco Smoking+ Palpitations Fatigue Syncope Edema+ Hypertension+Diabetes Mellitus Rheumatic Fever SOB+CHRISTY Obesity Hyperlipidemia+ Family History HD Additional History cad,cabg, lt hip fx PT DONE FLAT ON BACK- HIP FX, BEST IMAGES PATIENT INFORMATION HEIGHT: 68 WEIGHT:154 GENDER: Male B/P:124/88 2-D/M-MODE INTERPRETATION: 2-D MEASUREMENTS OBSERVED VALUES IN CMS Right Ventricular Dimension (RVDd) 2.5 Interventricular Septum (Thickness)(IVsd) 1.4 Left Ventricular Internal Dimensions(LVIDd) 4.6 Left Ventricular Posterior Wall (Thickness)(LVPWd) 1.0 Aortic Root 3.3 Aortic Cusp Separation 1.3 Left Atrial Dimensions (LAD) 3.2 2D 1. Left atrium is mildly enlarged, left ventricle is normal size, mild concentric left ventricular hypertrophy, visually estimated ejection fraction 55% with no regional wall motion abnormality. 2. The right atrium and right ventricle are normal size and contractility. 3. The aortic valve is thickened and calcified ,leaflet continue to display good mobility. 4. The mitral and tricuspid valve leaflets are minimally thickened. 5. The pulmonic valve is poorly present. 6. No significant pericardial effusion noted. DOPPLER INTERROGATION: Doppler interrogation of the aortic, mitral and tricuspid valvular presence of mild mitral and tricuspid regurgitation, tricuspid regurgitation jet velocity is inadequate for calculation of the right ventricular systolic pressure, diastolic parameters are inconclusive. CONCLUSION: 1. Technically difficult study because of the patient's factor and poor acoustic windows 2. Left atrium is mildly enlarged, left ventricle is normal size, mild concentric left ventricular hypertrophy, visually estimated ejection fraction 55% with no regional wall motion abnormality, diastolic parameters are inconclusive. 3. Thickened and calcified aortic valve without Doppler evidence of aortic stenosis aortic insufficiency. 4. Mild mitral and tricuspid regurgitation 5. No significant pericardial effusion noted.
[2018-06-26 07:30] LABS: Basophils % 0.1 % (0.1-2.0); Eosinophils % 0.3 % (0.1-12.0); Hematocrit 27.9 % (42.0-52.0); Hemoglobin 9.7 g/dL (14.1-18.0); Lymphocytes # 1.5 K/mm3 (0.7-4.5); Mean Corpuscular HGB Conc 34.7 g/dL (31.8-35.4); Mean Corpuscular Hemoglobin 31.8 pg (27.0-31.2); Mean Corpuscular Volume 91.7 fl (80-94); Mean Platelet Volume 7.2 fl (7.4-10.4); Monocytes # 0.6 K/mm3 (0.1-1.0); Monocytes % 5.5 % (1.7-9.3); Neutrophils # 8.8 K/mm3 (1.8-7.8); Neutrophils % 80.2 % (37.0-80.0); Platelet Count 168 K/mm3 (142-424); Red Blood Count 3.04 M/mm3 (4.60-6.20); Red Cell Distribution Width 12.8 % (11.5-17.5); White Blood Count 10.9 K/mm3 (4.8-10.8)
[2018-06-26 07:46] LABS: Anion Gap 12.6 mEq/L (5-15); Calcium 8.5 mg/dL (8.5-10.1); Chol/HDL Ratio 2.8 (1-3.5); Potassium 3.6 mmoL/L (3.5-5.1)
--- NOTE | 2018-06-26 08:15 | Progress Note ---
<Dayami Loya - Last Filed: 06/26/18 08:12> Internal Medicine - PN: Subj *Date: 06/26/18 *Time: 08:12 Interval history: Patient states he still feels very fatigued. His states he has not had morphine for quite some time and still appears confused and tired. He did work with therapy yesterday and did well. Dr. Pate is following the patient. He states his pain is minimal at this time. Exam Vital signs and Labs for Last 24 Hours: Temp Pulse Resp BP Pulse Ox 99.1 F 115 H 18 139/66 89 L 06/25/18 20:00 06/25/18 20:00 06/25/18 20:00 06/25/18 20:00 06/25/18 20:00 Laboratory Results - last 24 hr 06/26/18 07:10: WBC 10.9 H, RBC 3.04 L, Hgb 9.7 L, Hct 27.9 L, MCV 91.7, MCH 31.8 H, MCHC 34.7, RDW 12.8, Plt Count 168, MPV 7.2 L, Neut % (Auto) 80.2 H, Lymph % (Auto) 14.0, [place] % (Auto) 5.5, Eos % (Auto) 0.3, Baso % (Auto) 0.1, Neut # (Auto) 8.8 H, Lymph # (Auto) 1.5, [place] # (Auto) 0.6, Eos # (Auto) 0.0, Baso # (Auto) 0.0 06/26/18 07:10: Sodium 138, Potassium 3.6, Chloride 103, Carbon Dioxide 26, Anion Gap 12.6, BUN 19 H D, Creatinine 0.97, Estimated Creat Clear 60, Estimated GFR 75, Est GFR ( Amer) 91, Glucose 110 H, Calcium 8.5, Triglycerides 56, Cholesterol 120 L, LDL Cholesterol 66, VLDL Cholesterol 11, HDL Cholesterol 43, Cholesterol/HDL Ratio 2.8 I & O for Last 24 hours: Intake & Output 06/23/18 06/24/18 06/25/18 06/26/18 11:59 11:59 11:59 11:59 Intake Total 220 / 220 4321 / 4321 440 / 440 Output Total 200 / 200 1100 / 1100 375 / 375 Balance 3221 / 3221 65 / 65 Weight 150 lb 1 oz 153 lb 9 oz 154 lb 8 oz - Constitutional no acute distress - *Routine Respiratory Exam Present: CTA bilaterally - *Routine Cardiovascular Exam Present: RRR - *Routine Abdominal Exam Present: soft, normoactive bowel sounds. Absent: tenderness - *Routine Extremities Exam Present: edema (LLE trace edema, dressing in place on the left hip). Absent: cyanosis, clubbing - *Routine Neurological Exam Present: alert, oriented X3 Assessment and Plan (1) Closed left hip fracture Current visit: Yes Status: Acute Qualifiers: Encounter type: initial encounter Qualified Code(s): S72.002A - Fracture of unspecified part of neck of left femur, initial encounter for closed fracture Category: Medical Code(s): S72.002A - Fracture of unspecified part of neck of left femur, initial encounter for closed fracture (2) ASCVD (arteriosclerotic cardiovascular disease) Current visit: No Status: Chronic Category: Medical Code(s): I25.10 - Atherosclerotic heart disease of [place] coronary artery without angina pectoris (3) Hyperlipidemia Current visit: No Status: Chronic Category: Medical Code(s): E78.5 - Hyperlipidemia, unspecified (4) Hypertension Current visit: No Status: Chronic Category: Medical Code(s): I10 - Essential (primary) hypertension (5) History of coronary artery bypass graft Current visit: Yes Status: Chronic Category: Surgical Code(s): Z95.1 - Presence of aortocoronary bypass graft - Assessment and plan all Dx Assessment and Plan for all problems:: Will continue current treatment and therapy. Dr. Pate to follow. <Nicolas Sharif - Last Filed: 06/26/18 08:57> Exam Vital signs and Labs for Last 24 Hours: Temp Pulse Resp BP Pulse Ox 98.6 F 109 H 18 139/64 96 06/26/18 08:00 06/26/18 08:00 06/26/18 08:00 06/26/18 08:00 06/26/18 08:00 Laboratory Results - last 24 hr 06/26/18 07:10: WBC 10.9 H, RBC 3.04 L, Hgb 9.7 L, Hct 27.9 L, MCV 91.7, MCH 31.8 H, MCHC 34.7, RDW 12.8, Plt Count 168, MPV 7.2 L, Neut % (Auto) 80.2 H, Lymph % (Auto) 14.0, [place] % (Auto) 5.5, Eos % (Auto) 0.3, Baso % (Auto) 0.1, Neut # (Auto) 8.8 H, Lymph # (Auto) 1.5, [place] # (Auto) 0.6, Eos # (Auto) 0.0, Baso # (Auto) 0.0 06/26/18 07:10: Sodium 138, Potassium 3.6, Chloride 103, Carbon Dioxide 26, Anion Gap 12.6, BUN 19 H D, Creatinine 0.97, Estimated Creat Clear 60, Estimated GFR 75, Est GFR ( Amer) 91, Glucose 110 H, Calcium 8.5, Triglycerides 56, Cholesterol 120 L, LDL Cholesterol 66, VLDL Cholesterol 11, HDL Cholesterol 43, Cholesterol/HDL Ratio 2.8 I & O for Last 24 hours: Intake & Output 06/23/18 06/24/18 06/25/18 06/26/18 23:59 23:59 23:59 23:59 Intake Total 220 / 220 4081 / 4081 680 / 680 480 / 480 Output Total 200 / 200 1475 / 1475 Balance 220 / 220 3881 / 3881 -795 / -795 480 / 480 Weight 149 lb 9 oz 150 lb 1 oz 153 lb 9 oz 154 lb 8 oz Assessment and Plan (1) Closed left hip fracture Current visit: Yes Status: Acute Qualifiers: Encounter type: initial encounter Qualified Code(s): S72.002A - Fracture of unspecified part of neck of left femur, initial encounter for closed fracture Category: Medical Code(s): S72.002A - Fracture of unspecified part of neck of left femur, initial encounter for closed fracture (2) ASCVD (arteriosclerotic cardiovascular disease) Current visit: No Status: Chronic Category: Medical Code(s): I25.10 - Atherosclerotic heart disease of [place] coronary artery without angina pectoris (3) Hyperlipidemia Current visit: No Status: Chronic Category: Medical Code(s): E78.5 - Hyperlipidemia, unspecified (4) Hypertension Current visit: No Status: Chronic Category: Medical Code(s): I10 - Essential (primary) hypertension (5) History of coronary artery bypass graft Current visit: Yes Status: Chronic Category: Surgical Code(s): Z95.1 - Presence of aortocoronary bypass graft - Assessment and plan all Dx Assessment and Plan for all problems:: Saw patient, agree with above note.
--- NOTE | 2018-06-26 11:14 | Progress Note ---
Subjective Date: 06/26/18 Time: 09:25 Principal diagnosis: closed left hip fracture Interval history: 78 year old male admitted to [facility] for fractured hip. Pt underwent left hip fracture repair on 06/24/17. Pt is alert and oriented to person only this am. Pt stated that his incisional pain has decreased somewhat this morning. Pt is still requiring pain management for the pain. Will defer pain management to Orthopedic service and PCP. Denies chest pain, tightness or pressure. Denies shortness of breath. No swelling of the lower extremities. Pt stated he did have a restful night. Denies nausea, vomiting or chills. Reported pt's heart rate over night, remained in the range of 90-107 bpm with no ectopy. This may be a response to pt's pain. Blood pressure remains stable. Case was discussed with Dr. Tirado. Recommend to follow pt on outpatient basis for further cardiac testing and evaluation. Thank you for giving Cardiology the opportunity to participate in the care of this pt. Exam Vital signs and Labs for Last 24 Hours: Temp Pulse Resp BP Pulse Ox 98.6 F 109 H 18 139/64 96 06/26/18 08:00 06/26/18 08:00 06/26/18 08:00 06/26/18 08:00 06/26/18 08:00 Laboratory Results - last 24 hr 06/26/18 07:10: WBC 10.9 H, RBC 3.04 L, Hgb 9.7 L, Hct 27.9 L, MCV 91.7, MCH 31.8 H, MCHC 34.7, RDW 12.8, Plt Count 168, MPV 7.2 L, Neut % (Auto) 80.2 H, Lymph % (Auto) 14.0, [place] % (Auto) 5.5, Eos % (Auto) 0.3, Baso % (Auto) 0.1, Neut # (Auto) 8.8 H, Lymph # (Auto) 1.5, [place] # (Auto) 0.6, Eos # (Auto) 0.0, Baso # (Auto) 0.0 06/26/18 07:10: Sodium 138, Potassium 3.6, Chloride 103, Carbon Dioxide 26, Anion Gap 12.6, BUN 19 H D, Creatinine 0.97, Estimated Creat Clear 60, Estimated GFR 75, Est GFR ( Amer) 91, Glucose 110 H, Calcium 8.5, Triglycerides 56, Cholesterol 120 L, LDL Cholesterol 66, VLDL Cholesterol 11, HDL Cholesterol 43, Cholesterol/HDL Ratio 2.8 I & O for Last 24 hours: Intake & Output 06/23/18 06/24/18 06/25/18 06/26/18 23:59 23:59 23:59 23:59 Intake Total 220 / 220 4081 / 4081 680 / 680 480 / 480 Output Total 200 / 200 1475 / 1475 Balance 220 / 220 3881 / 3881 -795 / -795 480 / 480 Weight 149 lb 9 oz 150 lb 1 oz 153 lb 9 oz 154 lb 8 oz - Constitutional no acute distress, average body habitus, thin, cooperative - *Routine HEENT Exam Head: Present: normocephalic ENT: Present: mucous membranes moist - *Routine Neck Exam Present: supple, full ROM, normal carotid upstroke. Absent: JVD, carotid bruit - *Routine Respiratory Exam Present: accessory muscle use, CTA bilaterally. Absent: wheezes, crackles - *Routine Cardiovascular Exam Present: RRR, Normal S1, Normal S2, tachycardia. Absent: murmur, click, bradycardia, JVD - *Routine Abdominal Exam Present: soft, normoactive bowel sounds. Absent: firm - *Routine Extremities Exam Present: full ROM, pulses intact, normal capillary refill. Absent: cyanosis, clubbing, edema - Routine Back/Spine/Pelvis Exam Back/Spine: Present: full ROM. Absent: CVA tenderness - *Routine Skin Exam Present: intact, dry, warm, normal turgor. Absent: cyanosis, erythema - *Routine Neurological Exam Present: alert, oriented X3, CN II-XII intact, normal reflexes, moving all extremities, normal speech - Routine Psychiatric Exam Present: normal affect, normal thought process, cooperative Progress Note: A&P (1) Closed left hip fracture Status: Acute Current Visit: Yes (2) ASCVD (arteriosclerotic cardiovascular disease) Status: Chronic Current Visit: No (3) Hyperlipidemia Status: Chronic Current Visit: No (4) Hypertension Status: Chronic Current Visit: No (5) History of coronary artery bypass graft Status: Chronic Current Visit: Yes Assessment and Plan for All Diagnoses:: Plan: 1. The patient does complain of pain in his left hip. Will defer pain management to his primary care provider and orthopedic surgeon. 2. The patient does have some sinus tachycardia today. This is most likely secondary to his pain in his left hip. We will continue to follow his heart rate. At this time Dr. Tirado does not want to treat his tachycardia as this is likely a normal pain response. 3. The patient does have a history of coronary artery disease. He is status post coronary artery bypass grafting. He denies any chest pain or pressure. No plans for invasive cardiac testing at this time. 4. Once the patient has recovered from his left hip fracture and surgery and he is out of the hospital, he will likely need an outpatient cardiology follow up. 5. Further recommendations will be made pending the patient's response to treatment.
--- NOTE | 2018-06-26 16:57 | Progress Note ---
Subjective Date: 06/26/18 Time: 15:30 Principal diagnosis: closed left hip fracture Interval history: Patient is status post DHS fixation LEFT hip post op day #2. He is lying down in bed. Patient says has been doing well and has been eating and drinking well. He reports some pain over his left hip and says it is well controlled with medication. No history of any fevers, chills or rigors. No history of any nausea, vomiting, chest pain or SOB. He is having physical therapy and mobilizing well. PN: Obj Ex Vital signs: Temp Pulse Resp BP Pulse Ox 98.5 F 116 H 17 116/58 L 95 06/26/18 16:00 06/26/18 16:00 06/26/18 16:00 06/26/18 16:00 06/26/18 16:00 Narrative: Exam: General appearance: Alert, awake, no acute distress Cardiovascular: regular rate & rhythm Respiratory: no respiratory distress, breathing is nonlabored and speaks in full sentences. ABD: soft and nontender. On examination of his LEFT lower extremity, the limb lengths are equal. The alignment is neutral. The dressings over the LEFT hip are clean, dry and intact. I have changed the dressings today and the incision is clean and healthy. No soakage of dressing was noted. Movements of the LEFT hip are painful. Distal neurovascular status is intact. Dorsalis pedis and posterior tibial pulses 2+ bilaterally. Sensation is intact light touch throughout. Thigh and calf are soft and nontender. No clinical signs of DVT. - Urinary Catheter Management Coude Cath placed during this visit: yes Urethral indwelling: Yes Reason for continuing: Surgical procedure Insertion date: 06/24/18 Insertion time: 17:00 Progress Note: A&P (1) Closed left hip fracture Status: Acute Current Visit: Yes (2) ASCVD (arteriosclerotic cardiovascular disease) Status: Chronic Current Visit: No (3) Hyperlipidemia Status: Chronic Current Visit: No (4) Hypertension Status: Chronic Current Visit: No (5) History of coronary artery bypass graft Status: Chronic Current Visit: Yes Assessment and Plan for All Diagnoses:: I have reviewed the findings and progress with the patient and family. He is mobilizing with the help of physical therapy and progressing well. Continue PT/OT, pain management with as needed analgesics. He is likely to be discharged to swing bed status for rehab over the weekend. Recommend DVT prophylaxis for 5 weeks postop- the appropriate agents include Lovenox, Aspirin 325 mg, Xarelto (Rivaroxaban), Eliquis (apixaban) and Coumadin. Follow-up in my office in 2 weeks time with check x-ray. Please feel free to call our office at [phone] for any orthopaedic questions. Continue medical management as per Dr. Holland team.
--- NOTE | 2018-06-27 07:06 | Progress Note ---
Internal Medicine - PN: Subj *Date: 06/27/18 *Time: 07:04 Interval history: Pt feels a little better this morning, no new complaints, bowls have not moved. Exam Vital signs and Labs for Last 24 Hours: Temp Pulse Resp BP Pulse Ox 98.4 F 101 H 20 115/58 L 94 L 06/27/18 04:00 06/27/18 04:00 06/27/18 04:00 06/27/18 04:00 06/27/18 04:00 Laboratory Results - last 24 hr 06/26/18 07:10: WBC 10.9 H, RBC 3.04 L, Hgb 9.7 L, Hct 27.9 L, MCV 91.7, MCH 31.8 H, MCHC 34.7, RDW 12.8, Plt Count 168, MPV 7.2 L, Neut % (Auto) 80.2 H, Lymph % (Auto) 14.0, [place] % (Auto) 5.5, Eos % (Auto) 0.3, Baso % (Auto) 0.1, Neut # (Auto) 8.8 H, Lymph # (Auto) 1.5, [place] # (Auto) 0.6, Eos # (Auto) 0.0, Baso # (Auto) 0.0 06/26/18 07:10: Sodium 138, Potassium 3.6, Chloride 103, Carbon Dioxide 26, Anion Gap 12.6, BUN 19 H D, Creatinine 0.97, Estimated Creat Clear 60, Estimated GFR 75, Est GFR ( Amer) 91, Glucose 110 H, Calcium 8.5, Triglycerides 56, Cholesterol 120 L, LDL Cholesterol 66, VLDL Cholesterol 11, HDL Cholesterol 43, Cholesterol/HDL Ratio 2.8 I & O for Last 24 hours: Intake & Output 06/24/18 06/25/18 06/26/18 06/27/18 23:59 23:59 23:59 23:59 Intake Total 4081 / 4081 680 / 680 1440 / 1440 Output Total 200 / 200 1475 / 1475 Balance 3881 / 3881 -795 / -795 1440 / 1440 Weight 150 lb 1 oz 153 lb 9 oz 154 lb 8 oz 156 lb 5 oz - Constitutional no acute distress - *Routine HEENT Exam Head: Present: normocephalic Eye: Present: EOMI ENT: Present: mucous membranes moist - *Routine Neck Exam Present: supple. Absent: lymphadenopathy - *Routine Respiratory Exam Present: CTA bilaterally - *Routine Cardiovascular Exam Present: RRR - *Routine Abdominal Exam Present: soft, normoactive bowel sounds. Absent: tenderness - *Routine Extremities Exam Absent: cyanosis, clubbing, edema - *Routine Skin Exam Present: warm. Absent: rash - *Routine Neurological Exam Present: alert Assessment and Plan (1) Closed left hip fracture Current visit: Yes Status: Acute Qualifiers: Encounter type: initial encounter Qualified Code(s): S72.002A - Fracture of unspecified part of neck of left femur, initial encounter for closed fracture Category: Medical Code(s): S72.002A - Fracture of unspecified part of neck of left femur, initial encounter for closed fracture (2) ASCVD (arteriosclerotic cardiovascular disease) Current visit: No Status: Chronic Category: Medical Code(s): I25.10 - Atherosclerotic heart disease of [place] coronary artery without angina pectoris (3) Hyperlipidemia Current visit: No Status: Chronic Category: Medical Code(s): E78.5 - Hyperlipidemia, unspecified (4) Hypertension Current visit: No Status: Chronic Category: Medical Code(s): I10 - Essential (primary) hypertension (5) History of coronary artery bypass graft Current visit: Yes Status: Chronic Category: Surgical Code(s): Z95.1 - Presence of aortocoronary bypass graft - Assessment and plan all Dx Assessment and Plan for all problems:: Continue routine post op care, add simethicone today.
--- NOTE | 2018-06-27 17:56 | Progress Note ---
Subjective Date: 06/27/18 Time: 15:30 Principal diagnosis: closed left hip fracture Interval history: Patient is status post DHS fixation LEFT hip post op day #3. He is lying down in bed. Patient says he is doing well but he still reports some pain over his left hip especially when he first gets up to walk. He says the pain is well controlled with medication and is only taking pain medication couple of times a day. No history of any fevers, chills or rigors. No history of any nausea, vomiting, chest pain or SOB. PN: Obj Ex Vital signs: Temp Pulse Resp BP Pulse Ox 97.9 F 95 H 18 126/60 98 06/27/18 16:00 06/27/18 16:00 06/27/18 16:00 06/27/18 16:00 06/27/18 16:00 Narrative: Exam: General appearance: Alert, awake, no acute distress Cardiovascular: regular rate & rhythm Respiratory: no respiratory distress, breathing is nonlabored and speaks in full sentences. ABD: soft and nontender. On examination of his LEFT lower extremity, the limb lengths are equal. The al ignment is neutral. The dressings over the LEFT hip are clean, dry and intact. No soakage of dressing was noted. Movements of the LEFT hip are painful. There is mild diffuse edema of the left lower extremity. Distal neurovascular status is intact. Dorsalis pedis and posterior tibial pulses 2+ bilaterally. Sensation is intact light touch throughout. Thigh and calf are soft and nontender. Homans sign is negative; no clinical signs of DVT noted. - Urinary Catheter Management Coude Cath placed during this visit: yes Urethral indwelling: Yes Reason for continuing: Surgical procedure Insertion date: 06/24/18 Insertion time: 17:00 Progress Note: A&P (1) Closed left hip fracture Status: Acute Current Visit: Yes (2) ASCVD (arteriosclerotic cardiovascular disease) Status: Chronic Current Visit: No (3) Hyperlipidemia Status: Chronic Current Visit: No (4) Hypertension Status: Chronic Current Visit: No (5) History of coronary artery bypass graft Status: Chronic Current Visit: Yes Assessment and Plan for All Diagnoses:: I have reviewed the findings progress with the patient and family. Continue physical therapy and mobilization weightbearing as tolerated on the LEFT side. Continue PT/OT, pain management with as needed analgesics. Recommend DVT prophylaxis for 5 weeks postop- the appropriate agents include Lovenox, Aspirin 325 mg, Xarelto (Rivaroxaban), Eliquis (apixaban) and Coumadin. Follow-up in my office in 2 weeks time with check x-ray. Please feel free to call our office at [phone] for any orthopaedic questions. Medical management as per Dr. Holland team.
[2018-06-28 07:43] LABS: Basophils % 0.3 % (0.1-2.0); Eosinophils # 0.2 K/mm3 (0.0-0.4); Eosinophils % 3.2 % (0.1-12.0); Hematocrit 26.5 % (42.0-52.0); Hemoglobin 9.1 g/dL (14.1-18.0); Lymphocytes # 1.7 K/mm3 (0.7-4.5); Lymphocytes % 24.6 % (10-50); Mean Corpuscular HGB Conc 34.3 g/dL (31.8-35.4); Mean Corpuscular Hemoglobin 31.7 pg (27.0-31.2); Mean Corpuscular Volume 92.6 fl (80-94); Mean Platelet Volume 7.5 fl (7.4-10.4); Monocytes # 0.5 K/mm3 (0.1-1.0); Neutrophils # 4.4 K/mm3 (1.8-7.8); Neutrophils % 64.9 % (37.0-80.0); Platelet Count 217 K/mm3 (142-424); Red Blood Count 2.87 M/mm3 (4.60-6.20); White Blood Count 6.7 K/mm3 (4.8-10.8)
[2018-06-28 08:02] LABS: Anion Gap 11.3 mEq/L (5-15); Calcium 8.8 mg/dL (8.5-10.1); Potassium 3.3 mmoL/L (3.5-5.1)
--- NOTE | 2018-06-28 11:18 | Progress Note ---
Internal Medicine - PN: Subj *Date: 06/28/18 *Time: 11:16 Interval history: Patient had a large bowel movement this morning, no ther new complaints. Exam Vital signs and Labs for Last 24 Hours: Temp Pulse Resp BP Pulse Ox 98.0 F 102 H 17 138/66 90 L 06/28/18 08:00 06/28/18 08:00 06/28/18 08:00 06/28/18 08:00 06/28/18 08:00 Laboratory Results - last 24 hr 06/28/18 06:18: WBC 6.7 D, RBC 2.87 L, Hgb 9.1 L, Hct 26.5 L, MCV 92.6, MCH 31.7 H, MCHC 34.3, RDW 13.0, Plt Count 217 D, MPV 7.5, Neut % (Auto) 64.9, Lymph % (Auto) 24.6, [place] % (Auto) 7.0, Eos % (Auto) 3.2, Baso % (Auto) 0.3, Neut # (Auto) 4.4, Lymph # (Auto) 1.7, [place] # (Auto) 0.5, Eos # (Auto) 0.2, Baso # (Auto) 0.0 06/28/18 06:18: Sodium 140, Potassium 3.3 L, Chloride 103, Carbon Dioxide 29, Anion Gap 11.3, BUN 24 H D, Creatinine 1.01, Estimated Creat Clear 64, Estimated GFR 71, Est GFR ( Amer) 86, Glucose 97, Calcium 8.8 I & O for Last 24 hours: Intake & Output 06/25/18 06/26/18 06/27/18 06/28/18 23:59 23:59 23:59 23:59 Intake Total 680 / 680 1440 / 1440 1440 / 1440 Output Total 1475 / 1475 Balance -795 / -795 1440 / 1440 1440 / 1440 Weight 153 lb 9 oz 154 lb 8 oz 156 lb 5 oz 165 lb 6 oz - Constitutional no acute distress - *Routine HEENT Exam Head: Present: normocephalic Eye: Present: EOMI, PERRL ENT: Present: mucous membranes moist - *Routine Neck Exam Present: supple. Absent: lymphadenopathy - *Routine Respiratory Exam Present: CTA bilaterally - *Routine Cardiovascular Exam Present: RRR - *Routine Abdominal Exam Present: soft, normoactive bowel sounds. Absent: tenderness - *Routine Extremities Exam Present: edema (some at left knee). Absent: cyanosis, clubbing - *Routine Skin Exam Present: warm - *Routine Neurological Exam Present: alert, oriented X3 Assessment and Plan (1) Closed left hip fracture Current visit: Yes Status: Acute Qualifiers: Encounter type: initial encounter Qualified Code(s): S72.002A - Fracture of unspecified part of neck of left femur, initial encounter for closed fracture Category: Medical Code(s): S72.002A - Fracture of unspecified part of neck of left femur, initial encounter for closed fracture (2) ASCVD (arteriosclerotic cardiovascular disease) Current visit: No Status: Chronic Category: Medical Code(s): I25.10 - Atherosclerotic heart disease of [place] coronary artery without angina pectoris (3) Hyperlipidemia Current visit: No Status: Chronic Category: Medical Code(s): E78.5 - Hyperlipidemia, unspecified (4) Hypertension Current visit: No Status: Chronic Category: Medical Code(s): I10 - Essential (primary) hypertension (5) History of coronary artery bypass graft Current visit: Yes Status: Chronic Category: Surgical Code(s): Z95.1 - Presence of aortocoronary bypass graft (6) Anemia Current visit: Yes Status: Acute Category: Medical Code(s): D64.9 - Anemia, unspecified - Assessment and plan all Dx Assessment and Plan for all problems:: Patient is doing well, post op day #4, plan to add iron due to anemia and follow H/H.
--- NOTE | 2018-06-28 18:06 | Progress Note ---
Subjective Date: 06/28/18 Time: 16:20 Principal diagnosis: closed left hip fracture Interval history: Patient is status post DHS fixation LEFT hip post op day #4. He is lying down in bed. Patient says has been doing well and has been eating and drinking well. He reports some pain over his left hip and says it is well controlled with medication. No history of any fevers, chills or rigors. No history of any nausea, vomiting, chest pain or SOB. He mentioned that he opened his bowels today. PN: Obj Ex Vital signs: Temp Pulse Resp BP Pulse Ox 98.4 F 100 H 17 135/68 97 06/28/18 15:33 06/28/18 15:33 06/28/18 15:33 06/28/18 15:33 06/28/18 15:33 Narrative: Laboratory Results - last 24 hr 06/28/18 06:18: WBC 6.7 D, RBC 2.87 L, Hgb 9.1 L, Hct 26.5 L, MCV 92.6, MCH 31.7 H, MCHC 34.3, RDW 13.0, Plt Count 217 D, MPV 7.5, Neut % (Auto) 64.9, Lymph % (Auto) 24.6, [place] % (Auto) 7.0, Eos % (Auto) 3.2, Baso % (Auto) 0.3, Neut # (Auto) 4.4, Lymph # (Auto) 1.7, [place] # (Auto) 0.5, Eos # (Auto) 0.2, Baso # (Auto) 0.0 06/28/18 06:18: Sodium 140, Potassium 3.3 L, Chloride 103, Carbon Dioxide 29, Anion Gap 11.3, BUN 24 H D, Creatinine 1.01, Estimated Creat Clear 64, Estimated GFR 71, Est GFR ( Amer) 86, Glucose 97, Calcium 8.8 Exam: General appearance: Alert, awake, no acute distress Cardiovascular: regular rate & rhythm Respiratory: no respiratory distress, breathing is nonlabored and speaks in full sentences. ABD: soft and nontender. On examination of his LEFT lower extremity, the limb lengths are equal. The alignment is neutral. The dressings over the LEFT hip are clean, dry and intact. I have removed the dressings and left the incision uncovered. The incision looks healthy without any discharge, erythema or induration. No signs of infection noted. Movements of the LEFT hip are painful. There is diffuse edema of the left lower extremity. Distal neurovascular status is intact. Dorsalis pedis and posterior tibial pulses 2+ bilaterally. Sensation is intact light touch throughout. Thigh and calf are soft and nontender. No clinical signs of DVT noted; Homans sign is negative. - Urinary Catheter Management Coude Cath placed during this visit: yes Urethral indwelling: Yes Reason for continuing: Surgical procedure Insertion date: 06/24/18 Insertion time: 17:00 Progress Note: A&P (1) Closed left hip fracture Status: Acute Current Visit: Yes (2) ASCVD (arteriosclerotic cardiovascular disease) Status: Chronic Current Visit: No (3) Hyperlipidemia Status: Chronic Current Visit: No (4) Hypertension Status: Chronic Current Visit: No (5) History of coronary artery bypass graft Status: Chronic Current Visit: Yes (6) Anemia Status: Acute Current Visit: Yes Assessment and Plan for All Diagnoses:: I have reviewed the findings and progress with the patient and family. Encouraged him to continue mobilization weightbearing as tolerated. Continue PT/OT, pain management with as needed analgesics. Recommend DVT prophylaxis for 5 weeks postop- the appropriate agents include Lovenox, Aspirin 325 mg, Xarelto (Rivaroxaban), Eliquis (apixaban) and Coumadin. Follow-up in my office in 2 weeks time from surgery with check x-ray. Please feel free to call our office at [phone] for any orthopaedic questions. Continue medical management as per Dr. Holland team.
[2018-06-29 06:56] LABS: Basophils % 0.3 % (0.1-2.0); Eosinophils # 0.2 K/mm3 (0.0-0.4); Eosinophils % 3.2 % (0.1-12.0); Hematocrit 25.5 % (42.0-52.0); Hemoglobin 8.6 g/dL (14.1-18.0); Lymphocytes # 1.7 K/mm3 (0.7-4.5); Lymphocytes % 26.5 % (10-50); Mean Corpuscular HGB Conc 33.9 g/dL (31.8-35.4); Mean Corpuscular Hemoglobin 31.5 pg (27.0-31.2); Mean Corpuscular Volume 93.1 fl (80-94); Mean Platelet Volume 7.3 fl (7.4-10.4); Monocytes # 0.5 K/mm3 (0.1-1.0); Monocytes % 8.3 % (1.7-9.3); Neutrophils # 3.8 K/mm3 (1.8-7.8); Neutrophils % 61.6 % (37.0-80.0); Platelet Count 237 K/mm3 (142-424); Red Blood Count 2.74 M/mm3 (4.60-6.20); Red Cell Distribution Width 13.2 % (11.5-17.5); White Blood Count 6.2 K/mm3 (4.8-10.8)
[2018-06-29 07:02] LABS: Anion Gap 10.2 mEq/L (5-15); Calcium 8.3 mg/dL (8.5-10.1); Potassium 3.2 mmoL/L (3.5-5.1)
--- NOTE | 2018-06-29 08:57 | Progress Note ---
Internal Medicine - PN: Subj *Date: 06/29/18 *Time: 08:56 Interval history: Patient with no new complaints today Exam Vital signs and Labs for Last 24 Hours: Temp Pulse Resp BP Pulse Ox 98.7 F 86 16 127/66 93 L 06/29/18 07:27 06/29/18 07:27 06/29/18 07:27 06/29/18 07:27 06/29/18 07:27 Laboratory Results - last 24 hr 06/29/18 06:28: WBC 6.2, RBC 2.74 L, Hgb 8.6 L, Hct 25.5 L, MCV 93.1, MCH 31.5 H , MCHC 33.9, RDW 13.2, Plt Count 237, MPV 7.3 L, Neut % (Auto) 61.6, Lymph % (A uto) 26.5, [place] % (Auto) 8.3, Eos % (Auto) 3.2, Baso % (Auto) 0.3, Neut # (Auto) 3.8, Lymph # (Auto) 1.7, [place] # (Auto) 0.5, Eos # (Auto) 0.2, Baso # (Auto) 0.0 06/29/18 06:28: Sodium 141, Potassium 3.2 L, Chloride 104, Carbon Dioxide 30, Anion Gap 10.2, BUN 23 H, Creatinine 0.96, Estimated Creat Clear 64, Estimated GFR 76, Est GFR ( Amer) 92, Glucose 98, Calcium 8.3 L I & O for Last 24 hours: Intake & Output 06/26/18 06/27/18 06/28/18 06/29/18 23:59 23:59 23:59 23:59 Intake Total 1440 / 1440 1440 / 1440 Output Total 150 / 150 600 / 600 Balance 1440 / 1440 1440 / 1440 -150 / -150 -600 / -600 Weight 154 lb 8 oz 156 lb 5 oz 165 lb 6 oz 164 lb 3 oz - Constitutional no acute distress - *Routine HEENT Exam Head: Present: normocephalic ENT: Present: mucous membranes moist - *Routine Neck Exam Present: supple. Absent: lymphadenopathy - *Routine Respiratory Exam Present: CTA bilaterally - *Routine Cardiovascular Exam Present: RRR - *Routine Abdominal Exam Present: soft, normoactive bowel sounds. Absent: tenderness - *Routine Extremities Exam Present: edema. Absent: cyanosis, clubbing - *Routine Skin Exam Present: warm, rash - *Routine Neurological Exam Present: alert Assessment and Plan (1) Closed left hip fracture Current visit: Yes Status: Acute Qualifiers: Encounter type: initial encounter Qualified Code(s): S72.002A - Fracture of unspecified part of neck of left femur, initial encounter for closed fracture Category: Medical Code(s): S72.002A - Fracture of unspecified part of neck of left femur, initial encounter for closed fracture (2) ASCVD (arteriosclerotic cardiovascular disease) Current visit: No Status: Chronic Category: Medical Code(s): I25.10 - Atherosclerotic heart disease of [place] coronary artery without angina pectoris (3) Hyperlipidemia Current visit: No Status: Chronic Category: Medical Code(s): E78.5 - Hyperlipidemia, unspecified (4) Hypertension Current visit: No Status: Chronic Category: Medical Code(s): I10 - Essential (primary) hypertension (5) History of coronary artery bypass graft Current visit: Yes Status: Chronic Category: Surgical Code(s): Z95.1 - Presence of aortocoronary bypass graft (6) Anemia Current visit: Yes Status: Acute Category: Medical Code(s): D64.9 - Anemia, unspecified - Assessment and plan all Dx Assessment and Plan for all problems:: H/H continues to trend down, will check stool for occult blood.
--- NOTE | 2018-06-29 15:15 | Progress Note ---
Subjective Date: 06/29/18 Time: 14:00 Principal diagnosis: closed left hip fracture Interval history: Patient is status post DHS fixation LEFT hip post op day #5. He is lying down in bed. Patient says has been doing well and reports no problems. He reports some pain over his left hip but says he is not taking any pain medication. He says he mobilized the length of the hallway twice today. No history of any fevers, chills or rigors. No history of any nausea, vomiting, chest pain or SOB. PN: Obj Ex Vital signs: Temp Pulse Resp BP Pulse Ox 98.7 F 86 16 127/66 93 L 06/29/18 07:27 06/29/18 07:27 06/29/18 07:27 06/29/18 07:27 06/29/18 07:27 Narrative: Laboratory Results - last 24 hr 06/29/18 06:28: WBC 6.2, RBC 2.74 L, Hgb 8.6 L, Hct 25.5 L, MCV 93.1, MCH 31.5 H , MCHC 33.9, RDW 13.2, Plt Count 237, MPV 7.3 L, Neut % (Auto) 61.6, Lymph % (Auto) 26.5, [place] % (Auto) 8.3, Eos % (Auto) 3.2, Baso % (Auto) 0.3, Neut # (Auto) 3.8, Lymph # (Auto) 1.7, [place] # (Auto) 0.5, Eos # (Auto) 0.2, Baso # (Auto) 0.0 06/29/18 06:28: Sodium 141, Potassium 3.2 L, Chloride 104, Carbon Dioxide 30, Anion Gap 10.2, BUN 23 H, Creatinine 0.96, Estimated Creat Clear 64, Estimated GFR 76, Est GFR ( Amer) 92, Glucose 98, Calcium 8.3 L Exam: General appearance: Alert, awake, no acute distress Cardiovascular: regular rate & rhythm Respiratory: no respiratory distress, breathing is nonlabored and speaks in full sentences. ABD: soft and nontender. On examination of his LEFT lower extremity, the limb lengths are equal. The ali gnment is neutral. The surgical incision is clean and healthy. No discharge, erythema, induration or signs of any infection noted. Movements of the LEFT hip are painful. Distal neurovascular status is intact. Dorsalis pedis and posterior tibial pulses 2+ bilaterally. Sensation is intact light touch throughout. Thigh and calf are soft and nontender. No clinical signs of DVT. - Urinary Catheter Management Coude Cath placed during this visit: yes Urethral indwelling: Yes Reason for continuing: Surgical procedure Insertion date: 06/24/18 Insertion time: 17:00 Progress Note: A&P (1) Closed left hip fracture Status: Acute Current Visit: Yes (2) ASCVD (arteriosclerotic cardiovascular disease) Status: Chronic Current Visit: No (3) Hyperlipidemia Status: Chronic Current Visit: No (4) Hypertension Status: Chronic Current Visit: No (5) History of coronary artery bypass graft Status: Chronic Current Visit: Yes (6) Anemia Status: Acute Current Visit: Yes Assessment and Plan for All Diagnoses:: I have reviewed the findings and progress with the patient and family. Encouraged him to continue range of motion and quadricep strengthening exercises and continue mobilization weightbearing as tolerated. Continue PT/OT, pain management with as needed analgesics. From an orthopedic standpoint patient can be discharged as appropriate. Recommend DVT prophylaxis for 5 weeks postop- the appropriate agents include Lovenox, Aspirin 325 mg, Xarelto (Rivaroxaban), Eliquis (apixaban) and Coumadin. Follow-up in my office in 2 weeks time with check x-ray. Please feel free to call our office at [phone] for any orthopaedic questions. Medical management as per Dr. Holland team.
[2018-06-30 07:47] LABS: Basophils % 0.4 % (0.1-2.0); Eosinophils # 0.2 K/mm3 (0.0-0.4); Eosinophils % 3.2 % (0.1-12.0); Hematocrit 26.8 % (42.0-52.0); Hemoglobin 9.3 g/dL (14.1-18.0); Lymphocytes # 2.1 K/mm3 (0.7-4.5); Mean Corpuscular HGB Conc 34.6 g/dL (31.8-35.4); Mean Corpuscular Hemoglobin 31.9 pg (27.0-31.2); Mean Corpuscular Volume 92.3 fl (80-94); Mean Platelet Volume 7.6 fl (7.4-10.4); Monocytes # 0.5 K/mm3 (0.1-1.0); Monocytes % 7.2 % (1.7-9.3); Neutrophils # 4.6 K/mm3 (1.8-7.8); Neutrophils % 61.3 % (37.0-80.0); Platelet Count 253 K/mm3 (142-424); Red Blood Count 2.91 M/mm3 (4.60-6.20); Red Cell Distribution Width 13.4 % (11.5-17.5); White Blood Count 7.5 K/mm3 (4.8-10.8)
[2018-06-30 07:51] LABS: Anion Gap 11.3 mEq/L (5-15); Calcium 8.4 mg/dL (8.5-10.1); Potassium 3.3 mmoL/L (3.5-5.1)
--- NOTE | 2018-06-30 09:05 | Progress Note ---
Internal Medicine - PN: Subj *Date: 06/30/18 *Time: 09:02 Interval history: Patient had some abd discomfort last night along with a large bowel movement this morning that consisted of dark, near black stool. Exam Vital signs and Labs for Last 24 Hours: Temp Pulse Resp BP Pulse Ox 97.8 F 100 H 18 133/63 98 06/30/18 08:00 06/30/18 08:00 06/30/18 08:00 06/30/18 08:00 06/30/18 08:00 Laboratory Results - last 24 hr 06/30/18 07:23: WBC 7.5, RBC 2.91 L, Hgb 9.3 L, Hct 26.8 L, MCV 92.3, MCH 31.9 H , MCHC 34.6, RDW 13.4, Plt Count 253, MPV 7.6, Neut % (Auto) 61.3, Lymph % (Auto) 28.0, [place] % (Auto) 7.2, Eos % (Auto) 3.2, Baso % (Auto) 0.4, Neut # (Auto) 4.6, Lymph # (Auto) 2.1, [place] # (Auto) 0.5, Eos # (Auto) 0.2, Baso # (Auto) 0.0 06/30/18 07:23: Sodium 140, Potassium 3.3 L, Chloride 104, Carbon Dioxide 28, Anion Gap 11.3, BUN 21 H, Creatinine 0.93, Estimated Creat Clear 64, Estimated GFR 79, Est GFR ( Amer) 95, Glucose 100, Calcium 8.4 L I & O for Last 24 hours: Intake & Output 06/27/18 06/28/18 06/29/18 06/30/18 23:59 23:59 23:59 23:59 Intake Total 1440 / 1440 600 / 600 240 / 240 Output Total 150 / 150 600 / 600 125 / 125 Balance 1440 / 1440 -150 / -150 0 / 0 115 / 115 Weight 156 lb 5 oz 165 lb 6 oz 164 lb 3 oz 163 lb 2 oz - Constitutional no acute distress (sitting in a chair) - *Routine HEENT Exam Head: Present: normocephalic ENT: Present: mucous membranes moist - *Routine Neck Exam Present: supple. Absent: lymphadenopathy - *Routine Respiratory Exam Present: CTA bilaterally - *Routine Cardiovascular Exam Present: RRR - *Routine Abdominal Exam Present: soft, normoactive bowel sounds. Absent: tenderness - *Routine Skin Exam Present: warm. Absent: rash - *Routine Neurological Exam Present: alert Assessment and Plan (1) Closed left hip fracture Current visit: Yes Status: Acute Qualifiers: Encounter type: initial encounter Qualified Code(s): S72.002A - Fracture of unspecified part of neck of left femur, initial encounter for closed fracture Category: Medical Code(s): S72.002A - Fracture of unspecified part of neck of left femur, initial encounter for closed fracture (2) ASCVD (arteriosclerotic cardiovascular disease) Current visit: No Status: Chronic Category: Medical Code(s): I25.10 - Atherosclerotic heart disease of [place] coronary artery without angina pectoris (3) Hyperlipidemia Current visit: No Status: Chronic Category: Medical Code(s): E78.5 - Hyperlipidemia, unspecified (4) Hypertension Current visit: No Status: Chronic Category: Medical Code(s): I10 - Essential (primary) hypertension (5) History of coronary artery bypass graft Current visit: Yes Status: Chronic Category: Surgical Code(s): Z95.1 - Presence of aortocoronary bypass graft (6) Anemia Current visit: Yes Status: Acute Category: Medical Code(s): D64.9 - Anemia, unspecified - Assessment and plan all Dx Assessment and Plan for all problems:: H/H is higher today, awaiting stool for occult blood.
--- NOTE | 2018-06-30 17:12 | Progress Note ---
Subjective Date: 06/30/18 Time: 16:30 Principal diagnosis: closed left hip fracture Interval history: Patient is status post DHS fixation LEFT hip post op day #6. He is lying down in bed. Patient says has been doing well and reports no problems. He says he walked up and down the hallway and also trained on the status today. He reports minimal pain over his left hip/thigh which is well controlled with pain medication. No history of any fevers, chills or rigors. No history of any nausea, vomiting, chest pain or SOB. He is being investigated for possible GI bleed. PN: Obj Ex Vital signs: Temp Pulse Resp BP Pulse Ox 97.9 F 81 18 120/50 L 97 06/30/18 16:00 06/30/18 16:00 06/30/18 16:00 06/30/18 16:00 06/30/18 16:00 Narrative: Laboratory Results - last 24 hr 06/30/18 07:23: WBC 7.5, RBC 2.91 L, Hgb 9.3 L, Hct 26.8 L, MCV 92.3, MCH 31.9 H , MCHC 34.6, RDW 13.4, Plt Count 253, MPV 7.6, Neut % (Auto) 61.3, Lymph % (Auto) 28.0, [place] % (Auto) 7.2, Eos % (Auto) 3.2, Baso % (Auto) 0.4, Neut # (Auto) 4.6, Lymph # (Auto) 2.1, [place] # (Auto) 0.5, Eos # (Auto) 0.2, Baso # (Auto) 0.0 06/30/18 07:23: Sodium 140, Potassium 3.3 L, Chloride 104, Carbon Dioxide 28, Anion Gap 11.3, BUN 21 H, Creatinine 0.93, Estimated Creat Clear 64, Estimated GFR 79, Est GFR ( Amer) 95, Glucose 100, Calcium 8.4 L 06/30/18 08:00: Stool Occult Blood Negative Exam: General appearance: Alert, awake, no acute distress Cardiovascular: regular rate & rhythm Respiratory: no respiratory distress, breathing is nonlabored and speaks in full sentences. ABD: soft and nontender. On examination of his LEFT lower extremity, the limb lengths are equal. There is diffuse edema of the left lower extremity. The alignment is neutral. The surgical incision is clean and healthy. No discharge, erythema, induration or signs of any infection noted. Movements of the LEFT hip are painful. He is able to actively straight leg raise. Distal neurovascular status is intact. Dorsalis pedis and posterior tibial pulses 2+ bilaterally. Sensation is intact light touch throughout. Thigh and calf are soft and nontender. No clinical signs of DVT. - Urinary Catheter Management Coude Cath placed during this visit: yes Urethral indwelling: Yes Reason for continuing: Surgical procedure Insertion date: 06/24/18 Insertion time: 17:00 Progress Note: A&P (1) Closed left hip fracture Status: Acute Current Visit: Yes (2) ASCVD (arteriosclerotic cardiovascular disease) Status: Chronic Current Visit: No (3) Hyperlipidemia Status: Chronic Current Visit: No (4) Hypertension Status: Chronic Current Visit: No (5) History of coronary artery bypass graft Status: Chronic Current Visit: Yes (6) Anemia Status: Acute Current Visit: Yes Assessment and Plan for All Diagnoses:: I have reviewed the findings and progress with the patient. I have encouraged him to continue hip and knee range of motion and quadricep strengthening exercises and continue mobilization weightbearing as tolerated. Continue PT/OT, pain management with as needed analgesics. He is doing well from an orthopedic standpoint but is being investigated for possible blood loss into the GI tract. Continue medical management as per Dr. Holland team.
[2018-07-01 07:29] LABS: Anion Gap 9.9 mEq/L (5-15); Calcium 8.6 mg/dL (8.5-10.1); Potassium 3.9 mmoL/L (3.5-5.1)
[2018-07-01 07:34] LABS: Basophils % 0.3 % (0.1-2.0); Eosinophils # 0.3 K/mm3 (0.0-0.4); Hemoglobin 9.5 g/dL (14.1-18.0); Lymphocytes # 1.8 K/mm3 (0.7-4.5); Lymphocytes % 19.9 % (10-50); Mean Corpuscular HGB Conc 31.6 g/dL (31.8-35.4); Mean Corpuscular Hemoglobin 30.7 pg (27.0-31.2); Mean Corpuscular Volume 97.3 fl (80-94); Mean Platelet Volume 7.5 fl (7.4-10.4); Monocytes # 0.7 K/mm3 (0.1-1.0); Monocytes % 8.3 % (1.7-9.3); Neutrophils % 68.5 % (37.0-80.0); Platelet Count 304 K/mm3 (142-424); Red Blood Count 3.08 M/mm3 (4.60-6.20); Red Cell Distribution Width 13.4 % (11.5-17.5); White Blood Count 8.8 K/mm3 (4.8-10.8)
--- NOTE | 2018-07-01 08:08 | Progress Note ---
<Dayami Loya - Last Filed: 07/01/18 08:05> Internal Medicine - PN: Subj *Date: 07/01/18 *Time: 08:05 Interval history: Patient states he had a rough night. He had some pain in his hip and was awake at 3:30 AM and had a difficult time going back to sleep. He states he has been sitting in the chair and has had to have some pain medication. He is having some abdominal discomfort this morning. He denies any other pain. He states he did eat a decent breakfast this morning. Exam Vital signs and Labs for Last 24 Hours: Temp Pulse Resp BP Pulse Ox 98.1 F 89 18 107/62 L 100 07/01/18 08:00 07/01/18 08:00 07/01/18 08:00 07/01/18 08:00 07/01/18 08:00 Laboratory Results - last 24 hr 06/30/18 08:00: Stool Occult Blood Negative 07/01/18 06:45: WBC 8.8, RBC 3.08 L, Hgb 9.5 L, Hct 30.0 L, MCV 97.3 H, MCH 30.7, MCHC 31.6 L, RDW 13.4, Plt Count 304, MPV 7.5, Neut % (Auto) 68.5, Lymph % (Auto) 19.9, Barron % (Auto) 8.3, Eos % (Auto) 3.0, Baso % (Auto) 0.3, Neut # (Auto) 6.0, Lymph # (Auto) 1.8, Barron # (Auto) 0.7, Eos # (Auto) 0.3, Baso # (Auto) 0.0 07/01/18 06:45: Sodium 138, Potassium 3.9, Chloride 103, Carbon Dioxide 29, Anion Gap 9.9, BUN 20 H, Creatinine 0.96, Estimated Creat Clear 63, Estimated GFR 76, Est GFR ( Amer) 92, Glucose 105, Calcium 8.6 I & O for Last 24 hours: Intake & Output 06/28/18 06/29/18 06/30/18 07/01/18 11:59 11:59 11:59 11:59 Intake Total 960 / 960 840 / 840 1080 / 1080 Output Total 750 / 750 125 / 125 650 / 650 Balance 960 / 960 -750 / -750 715 / 715 430 / 430 Weight 165 lb 6 oz 164 lb 3 oz 163 lb 2 oz 162 lb 2 oz - Constitutional no acute distress (sitting in a chair) - *Routine Respiratory Exam Present: CTA bilaterally - *Routine Cardiovascular Exam Present: RRR - *Routine Abdominal Exam Present: soft, normoactive bowel sounds. Absent: tenderness - *Routine Extremities Exam Present: edema (bilateral LE's but worse on the left). Absent: cyanosis, clubbing - *Routine Skin Exam Present: warm - *Routine Neurological Exam Present: alert, oriented X3 Assessment and Plan (1) Closed left hip fracture Current visit: Yes Status: Acute Qualifiers: Encounter type: initial encounter Qualified Code(s): S72.002A - Fracture of unspecified part of neck of left femur, initial encounter for closed fracture Category: Medical Code(s): S72.002A - Fracture of unspecified part of neck of left femur, initial encounter for closed fracture (2) ASCVD (arteriosclerotic cardiovascular disease) Current visit: No Status: Chronic Category: Medical Code(s): I25.10 - Atherosclerotic heart disease of [place] coronary artery without angina pectoris (3) Hyperlipidemia Current visit: No Status: Chronic Category: Medical Code(s): E78.5 - Hyperlipidemia, unspecified (4) Hypertension Current visit: No Status: Chronic Category: Medical Code(s): I10 - Essential (primary) hypertension (5) History of coronary artery bypass graft Current visit: Yes Status: Chronic Category: Surgical Code(s): Z95.1 - Presence of aortocoronary bypass graft (6) Anemia Current visit: Yes Status: Acute Category: Medical Code(s): D64.9 - Anemia, unspecified - Assessment and plan all Dx Assessment and Plan for all problems:: Stool for blood was negative. Patient is improving slowly. Will discuss further care with Dr. Sharif. <Nicolas Sharif - Last Filed: 07/01/18 08:44> Exam Vital signs and Labs for Last 24 Hours: Temp Pulse Resp BP Pulse Ox 98.1 F 89 18 107/62 L 100 07/01/18 08:00 07/01/18 08:00 07/01/18 08:00 07/01/18 08:00 07/01/18 08:00 Laboratory Results - last 24 hr 06/30/18 08:00: Stool Occult Blood Negative 07/01/18 06:45: WBC 8.8, RBC 3.08 L, Hgb 9.5 L, Hct 30.0 L, MCV 97.3 H, MCH 30.7, MCHC 31.6 L, RDW 13.4, Plt Count 304, MPV 7.5, Neut % (Auto) 68.5, Lymph % (Auto) 19.9, Barron % (Auto) 8.3, Eos % (Auto) 3.0, Baso % (Auto) 0.3, Neut # (Auto) 6.0, Lymph # (Auto) 1.8, Barron # (Auto) 0.7, Eos # (Auto) 0.3, Baso # (Auto) 0.0 07/01/18 06:45: Sodium 138, Potassium 3.9, Chloride 103, Carbon Dioxide 29, Anion Gap 9.9, BUN 20 H, Creatinine 0.96, Estimated Creat Clear 63, Estimated GFR 76, Est GFR ( Amer) 92, Glucose 105, Calcium 8.6 I & O for Last 24 hours: Intake & Output 06/28/18 06/29/18 06/30/18 07/01/18 23:59 23:59 23:59 23:59 Intake Total 600 / 600 720 / 720 600 / 600 Output Total 150 / 150 600 / 600 425 / 425 350 / 350 Balance -150 / -150 0 / 0 295 / 295 250 / 250 Weight 165 lb 6 oz 164 lb 3 oz 163 lb 2 oz 162 lb 2 oz Assessment and Plan (1) Closed left hip fracture Current visit: Yes Status: Acute Qualifiers: Encounter type: initial encounter Qualified Code(s): S72.002A - Fracture of unspecified part of neck of left femur, initial encounter for closed fracture Category: Medical Code(s): S72.002A - Fracture of unspecified part of neck of left femur, initial encounter for closed fracture (2) ASCVD (arteriosclerotic cardiovascular disease) Current visit: No Status: Chronic Category: Medical Code(s): I25.10 - Atherosclerotic heart disease of [place] coronary artery without angina pectoris (3) Hyperlipidemia Current visit: No Status: Chronic Category: Medical Code(s): E78.5 - Hyperlipidemia, unspecified (4) Hypertension Current visit: No Status: Chronic Category: Medical Code(s): I10 - Essential (primary) hypertension (5) History of coronary artery bypass graft Current visit: Yes Status: Chronic Category: Surgical Code(s): Z95.1 - Presence of aortocoronary bypass graft (6) Anemia Current visit: Yes Status: Acute Category: Medical Code(s): D64.9 - Anemia, unspecified - Assessment and plan all Dx Assessment and Plan for all problems:: Saw patient, agree with above note. Possible discharge home tomorrow.
--- NOTE | 2018-07-02 08:15 | Progress Note ---
<Dayami Loya - Last Filed: 07/02/18 08:14> Internal Medicine - PN: Subj *Date: 07/02/18 *Time: 08:14 Interval history: Patient states he is feeling a little bit better today. His pain is still present but has improved. He states he sat up in a chair all day yesterday and has been moving around the room. He slept well last night and ate a good breakfast this morning. Exam Vital signs and Labs for Last 24 Hours: Temp Pulse Resp BP Pulse Ox 98.4 F 89 18 110/55 L 98 07/02/18 08:00 07/02/18 08:00 07/02/18 08:00 07/02/18 08:00 07/02/18 08:00 I & O for Last 24 hours: Intake & Output 06/29/18 06/30/18 07/01/18 07/02/18 11:59 11:59 11:59 11:59 Intake Total 840 / 840 1080 / 1080 960 / 960 Output Total 750 / 750 125 / 125 650 / 650 300 / 300 Balance -750 / -750 715 / 715 430 / 430 660 / 660 Weight 164 lb 3 oz 163 lb 2 oz 162 lb 2 oz 158 lb 1 oz - Constitutional no acute distress - *Routine Respiratory Exam Present: CTA bilaterally - *Routine Cardiovascular Exam Present: RRR - *Routine Abdominal Exam Present: soft, normoactive bowel sounds. Absent: tenderness - *Routine Extremities Exam Present: edema (bilateral LE's, worse on the left) Assessment and Plan (1) Closed left hip fracture Current visit: Yes Status: Acute Qualifiers: Encounter type: initial encounter Qualified Code(s): S72.002A - Fracture of unspecified part of neck of left femur, initial encounter for closed fracture Category: Medical Code(s): S72.002A - Fracture of unspecified part of neck of left femur, initial encounter for closed fracture (2) ASCVD (arteriosclerotic cardiovascular disease) Current visit: No Status: Chronic Category: Medical Code(s): I25.10 - Atherosclerotic heart disease of [place] coronary artery without angina pectoris (3) Hyperlipidemia Current visit: No Status: Chronic Category: Medical Code(s): E78.5 - Hyperlipidemia, unspecified (4) Hypertension Current visit: No Status: Chronic Category: Medical Code(s): I10 - Essential (primary) hypertension (5) History of coronary artery bypass graft Current visit: Yes Status: Chronic Category: Surgical Code(s): Z95.1 - Presence of aortocoronary bypass graft (6) Anemia Current visit: Yes Status: Acute Category: Medical Code(s): D64.9 - Anemia, unspecified - Assessment and plan all Dx Assessment and Plan for all problems:: Possible discharge home today. Will discuss with Dr. Sharif. <Nicolas Sharif - Last Filed: 07/02/18 08:58> Internal Medicine - PN: Subj *Date: 07/02/18 *Time: 08:56 Exam Vital signs and Labs for Last 24 Hours: Temp Pulse Resp BP Pulse Ox 98.4 F 89 18 110/55 L 98 07/02/18 08:00 07/02/18 08:00 07/02/18 08:00 07/02/18 08:00 07/02/18 08:00 I & O for Last 24 hours: Intake & Output 06/29/18 06/30/18 07/01/18 07/02/18 23:59 23:59 23:59 23:59 Intake Total 600 / 600 720 / 720 1080 / 1080 480 / 480 Output Total 600 / 600 425 / 525 350 / 550 300 / 300 Balance 0 / 0 295 / 195 730 / 530 180 / 180 Weight 164 lb 3 oz 163 lb 2 oz 162 lb 2.012 oz 158 lb 1 oz Assessment and Plan (1) Closed left hip fracture Current visit: Yes Status: Acute Qualifiers: Encounter type: initial encounter Qualified Code(s): S72.002A - Fracture of unspecified part of neck of left femur, initial encounter for closed fracture Category: Medical Code(s): S72.002A - Fracture of unspecified part of neck of left femur, initial encounter for closed fracture (2) ASCVD (arteriosclerotic cardiovascular disease) Current visit: No Status: Chronic Category: Medical Code(s): I25.10 - Atherosclerotic heart disease of [place] coronary artery without angina pectoris (3) Hyperlipidemia Current visit: No Status: Chronic Category: Medical Code(s): E78.5 - Hyperlipidemia, unspecified (4) Hypertension Current visit: No Status: Chronic Category: Medical Code(s): I10 - Essential (primary) hypertension (5) History of coronary artery bypass graft Current visit: Yes Status: Chronic Category: Surgical Code(s): Z95.1 - Presence of aortocoronary bypass graft (6) Anemia Current visit: Yes Status: Acute Category: Medical Code(s): D64.9 - Anemia, unspecified - Assessment and plan all Dx Assessment and Plan for all problems:: Saw patient, agree with above note. Plan on discussing discharge plan with patient's once she arrives at the hospital today.
--- NOTE | 2018-07-02 16:42 | Discharge Summary ---
General - General Admission date:: 06/23/18 Discharge date: 07/02/18 HPI HPI: Mr. Vivas is a 78-year-old white male with a history of coronary artery, GERD, hypertension, kidney stones, arthritis, and hyperlipidemia and also with history of bypass surgery in 1998. He was brought to the [facility] emergency room [place]. He stated he was working with a tool which slipped after which he fell hard on his buttocks. He called a neighbor who brought him to the hospital via his truck. He did not have a syncopal episode. He denies chest pain and breathing difficulties. With evaluation in the emergency room he was found to have a left hip fracture and was admitted with an orthopedic consult. He received pain medicine for his left hip pain and slept at intervals. He continually denied any chest pain or shortness of breath. Cardiology saw the patient for evaluation for surgery. Echocardiogram performed was noted with an ejection fraction to be greater than 55%. He was also noted to have some calcification of the aortic valve which appeared to be working appropriately. EKG showed sinus rhythm with first-degree AV block and nonspecific ST-T abnormalities unchanged from previous tracings. Hospital Course Hospital Course: A carotid ultrasound was ordered due to bilateral carotid bruits and an orthopedic consult was made. Cardiology felt the patient was an acceptable risk to proceed with left hip surgery. His carotid ultrasound showed 50-69% stenosis on the right and 20-49% stenosis on the left. Dr. Pate saw the patient and felt he would need a dynamic hip screw fixation/cephalo-medullary nailing of the left hip. He was started on preop antibiotics and the surgery was performed on 06/24/18. The fracture was well reduced with closed manipulation prior to fixation and the patient tolerated the procedure well. He continued with pain in his hip after the procedure and was confused for a few days. Dr. Pate ordered physical therapy. He felt he could mobilize and transfer with a walker with the help of the therapist and was to be weightbearing on the left side as tolerated. He recommended DVT prophylaxis for 5 weeks postop. The patient did well with physical therapy and his mentation cleared once he was taken off of the morphine and started on oral pain medication. He did have some constipation and gas with pain medication, therefore simethicone was added. He then had a large bowel movement with no other complaints. He did have some anemia, therefore he was started on iron and his H&H was monitored. It continued to trend down and he had some abdominal discomfort and a large bowel movement that was dark, however his stool for blood was negative. His potassium was low and had to be replaced. He began feeling better and was stable to be discharged home with his . He will have home health and will need to follow-up with Dr. Pate. Objective Vital signs: Temp Pulse Resp BP Pulse Ox 98.4 F 89 18 110/55 L 98 07/02/18 08:00 07/02/18 08:00 07/02/18 08:00 07/02/18 08:00 07/02/18 08:00 Narrative: - Constitutional no acute distress Comments: Appears comfortable most of the time with occasional left leg spasms - *Routine HEENT Exam Head: Present: normocephalic, atraumatic Eye: Present: PERRL. Absent: conjunctival icterus, scleral injection Comments: Patient has dentures. Tongue is dry - *Routine Neck Exam Present: carotid bruit (Greater on the right). Absent: lymphadenopathy, thyromegaly - *Routine Respiratory Exam Present: CTA bilaterally - *Routine Cardiovascular Exam Present: RRR, murmur - *Routine Abdominal Exam Present: soft, normoactive bowel sounds, surgical scars. Absent: tenderness, distended - *Routine Extremities Exam Present: pulses intact. Absent: edema, calf tenderness Comments: Left leg /hip without ecchymosis - *Routine Neurological Exam Present: alert, oriented X3 DS: Diagnosis - Discharge Diagnosis (1) Closed left hip fracture Status: Acute (2) ASCVD (arteriosclerotic cardiovascular disease) Status: Chronic (3) Hyperlipidemia Status: Chronic (4) Hypertension Status: Chronic (5) History of coronary artery bypass graft Status: Chronic (6) Anemia Status: Acute Discharge Plan - Patient Discharge Instructions ACTIVITY: Continue current activity DIET: continue same diet Additional Instructions: Wound care and PT home health order per Dr. Pate Patient Instructions: How to Care for a Surgical Wound, Hip Fracture, Anemia, Surgical Site Infection - Follow up Plan Follow up with: Nicolas Sharif MD [Primary Care Provider] - 1 week Shreyas Pate MD [Staff Physician] - 2 weeks Disposition: Home Health Service Home Medications: Home Medications Medication Instructions Recorded Confirmed Type Aspirin [Aspirin 325mg Tab] 325 mg PO DAILY 12/25/17 06/23/18 History Ramipril 5 mg PO DAILY 12/25/17 06/23/18 History raNITIdine HCl [Ranitidine HCl] 150 mg PO BID 12/25/17 06/23/18 History Amlodipine Besylate [Amlodipine 5 mg PO DAILY 06/24/18 06/24/18 History 5mg tab] Omeprazole [Omeprazole 20mg 20 mg PO DAILY 06/24/18 06/24/18 History Capsule] Ferrous Sulfate [Ferrous Sulfate 325 mg PO TID #90 tab 07/02/18 Rx 325mg Tablet] Prescriptions/Medication Reconciliation: New Ferrous Sulfate [Ferrous Sulfate 325mg Tablet] 325 mg PO TID #90 tab Continued Ramipril 5 mg PO DAILY Aspirin [Aspirin 325mg Tab] 325 mg PO DAILY Amlodipine Besylate [Amlodipine 5mg tab] 5 mg PO DAILY raNITIdine HCl [Ranitidine HCl] 150 mg PO BID Omeprazole [Omeprazole 20mg Capsule] 20 mg PO DAILY
== END 2018-07-02 11:00 | disposition home health service (06) | DRG 482 ==
LOC: ER 17:51 → 2ND 20:23
PROVIDERS: ADMIT Family Medicine; ATTEND Family Medicine
CPT/HCPCS: 36415; 71010; 71045; 73502; 73552; 73700; 76000; 80048; 80053; 80061; 81001; 82272; 85025; 86850; 93005; 93306; 93880; 94761; 96374; 96375; 97110; 97116; 97140; 97162; 97166; 97530; 97535; 99284; C1713; G0328; J2405

== ENCOUNTER → 2018-07-09 12:22 | Outpatient (CLI) | payer MEDICARE, SELFPAY ==
--- NOTE | 2018-07-09 12:28 | XR_ITS ---
XR hip LT 2-3V w/pelvis HISTORY: Follow-up fracture/ORIF ITS.REASON: DHS fixation with derotation screw, left hip ORDERING PHYSICIAN: Shreyas Pate MD PATIENT AGE: 78 years COMPARISON: 06/24/2018 FINDINGS: Status post ORIF left intertrochanteric fracture with decompression screw and bone sideplate with an additional screw superior to this region as previously described. The intertrochanteric fracture is less apparent. There is good alignment. IMPRESSION: No acute finding, good alignment status post ORIF left hip
--- NOTE | 2018-07-09 13:50 | NVE_ITS ---
Venous Exam Indications: 729.81 Swelling of limb. S/p hip fx surgery 06/23/18. IMPRESSIONS No evidence of deep or superficial vein thrombosis involving the left lower extremity Left lower extremity venous duplex evaluation. Doppler flow study including spectral analysis, color and sandhu scale imaging. Location: Vascular laboratory. Patient status: Outpatient. CRITICAL FINDINGS - Reported to: Alo Pate office - 07/09/18 - 14:30 pm - Neg. for DVT Tables: Venous flow and imaging: + +-------+ + Location Overall Flow properties + +-------+ + Left common femoral Patent Normal phasicity; spontaneous; normal augmentation; compressible + +-------+ + Left saphenofemoral junction Patent Compressible + +-------+ + Left profunda femoral Patent Compressible + +-------+ + Left femoral Patent Normal phasicity; spontaneous; normal augmentation; compressible + +-------+ + Left greater saphenous Patent Normal phasicity; spontaneous; normal augmentation; compressible + +-------+ + Left popliteal Patent Normal phasicity; spontaneous; normal augmentation; compressible + +-------+ + Left posterior tibial Patent Compressible + +-------+ + Left peroneal Patent Compressible + +-------+ + Left gastrocnemius Patent Compressible + +-------+ + Left soleal Patent Compressible + +-------+ + (Report amended ) Electronically signed by: Jimi Aguirre [id number]
== END ==
PROVIDERS: PCP Family Medicine; Visit Provider Orthopaedic Surgery
DX: Z48.89 Encounter for other specified surgical aftercare (principal); M79.605 Pain in left leg
CPT/HCPCS: 73502; 93971

== ENCOUNTER → 2018-08-12 09:44 | Outpatient (CLI) | payer MEDICARE, SELFPAY ==
--- NOTE | 2018-08-12 09:49 | XR_ITS ---
XR hip LT 2-3V w/pelvis HISTORY: Follow-up ORIF left hip ITS.REASON: sp DHS fixation with derotation screw ORDERING PHYSICIAN: Shreyas Pate MD PATIENT AGE: 78 years COMPARISON: 07/09/2018 FINDINGS: Status post ORIF left intertrochanteric fracture with good alignment. Gamma nail with sideplate and additional screw noted with good alignment and no evidence of orthopedic complication. IMPRESSION: Good alignment status post ORIF left intertrochanteric fracture unchanged
--- NOTE | 2018-08-12 09:49 | XR_ITS ---
XR knee LT 4V HISTORY: Pain ITS.REASON: 4 views weightbearing ORDERING PHYSICIAN: Shreyas Pate MD PATIENT AGE: 78 years COMPARISON: 06/25/2010 FINDINGS: There are severe osteoarthritic changes of the medial compartment check progressed since the previous exam. Mild osteoarthritis involves the lateral compartment with moderate osteoarthritic change of the patellofemoral joint. Chondrocalcinosis is present at the medial lateral compartment and there is generalized vascular calcification. IMPRESSION: Progression of osteoarthritis of the left knee which is severe along the medial compartment
== END ==
PROVIDERS: PCP Family Medicine; Visit Provider Orthopaedic Surgery
DX: Z48.89 Encounter for other specified surgical aftercare (principal); M25.562 Pain in left knee
CPT/HCPCS: 73502; 73564

== ENCOUNTER → 2018-09-22 10:02 | Outpatient (CLI) | payer MEDICARE, SELFPAY ==
--- NOTE | 2018-09-22 10:08 | XR_ITS ---
XR hip LT 2-3V w/pelvis HISTORY: Follow-up hip surgery ITS.REASON: hip pain ORDERING PHYSICIAN: Shreyas Pate MD PATIENT AGE: 78 years COMPARISON: 08/12/2018 FINDINGS: Status post gamma nail placement and long lag screw in the intertrochanteric region of the left femur as before with good alignment. There is callus formation at the intertrochanteric fracture. IMPRESSION: No change status post ORIF left femoral intertrochanteric fracture with good alignment
== END ==
PROVIDERS: PCP Family Medicine; Visit Provider Orthopaedic Surgery
DX: M25.552 Pain in left hip (principal)
CPT/HCPCS: 73502

== ENCOUNTER 2018-10-07 15:00 | Outpatient (RCR) | payer MEDICARE, SELFPAY | END 2018-10-07 15:05 | disposition home or self-care (01) | LOC: PT 15:00 | PROVIDERS: Visit Provider Orthopaedic Surgery | DX: S72.002A Fracture of unspecified part of neck of left femur, initial encounter for closed fracture (principal) | CPT/HCPCS: 97010; 97014; 97110; 97140; 97163; G0283 ==

== ENCOUNTER → 2018-12-21 11:00 | Outpatient (CLI) | payer MEDICARE, SELFPAY ==
--- NOTE | 2018-12-21 11:06 | XR_ITS ---
PROCEDURE: XR HIP LT 2-3V W/PELVIS CLINICAL INDICATION: 6 month fu of left hip DHS fixation COMPARISON: [id number] XR hip LT 2-3V w/pelvis from 06/24/2018 FINDINGS: Status post ORIF left intertrochanteric fracture with gamma nail sideplate and lag screw. Callus formation is present at the fracture site with good alignment. No obvious orthopedic complication. IMPRESSION: Good alignment status post ORIF healing left intertrochanteric hip fracture Dictated by: Jimi Aguirre MD 12/21/2018 12:03 Electronically signed by Jimi Aguirre MD in [place] 12/21/2018 12:05
== END ==
PROVIDERS: PCP Family Medicine; Visit Provider Orthopaedic Surgery
DX: Z48.89 Encounter for other specified surgical aftercare (principal); M25.552 Pain in left hip
CPT/HCPCS: 73502

== ENCOUNTER → 2019-04-30 11:15 | Outpatient (CLI) | payer MEDICARE, SELFPAY ==
--- NOTE | 2019-04-30 11:24 | XR_ITS ---
PROCEDURE: XR LUMBAR SPINE MIN 4V CLINICAL INDICATION: LBP Low back pain COMPARISON: [id number] CT abdomen pelvis wo con from 12/25/2017 FINDINGS: Minimal lumbar curvature convex right. Multilevel degenerative disc disease is present. There is 50 percent wedging anteriorly of L2 with kyphosis and no obvious retropulsion. There is also superior wedge compression changes of L4 of approximately 30 percent. These findings are not significantly changed from 12/25/2017. There are facet arthritic changes at L4-5 and L5-S1. IMPRESSION: The 1. No acute finding. 2. Chronic compression changes of L4 and L2 with associated degenerative disc disease and facet arthritic change Dictated by: Jimi Aguirre MD 04/30/2019 12:48 Electronically signed by Jimi Aguirre MD in [place] 04/30/2019 12:48
== END ==
PROVIDERS: PCP Family Medicine; Visit Provider Family Medicine
DX: M54.5 Low back pain (principal)
CPT/HCPCS: 72110

== ENCOUNTER → 2020-05-04 10:44 | Outpatient (CLI) | payer MEDICARE, SELFPAY ==
[2020-05-04 11:45] LABS: Creatinine,Urine Random 179 mg/dL (Not Estab.)
[2020-05-04 11:48] LABS: Microalbumin/Creatinine Ratio 25.3
[2020-05-04 12:21] LABS: Chloride 103 mmol/L (98-107)
[2020-05-04 12:22] LABS: Sodium 140 mmol/L (136-145)
[2020-05-04 12:24] LABS: Alanine Aminotransferase 12 U/L (12-78); Alkaline Phosphatase 102 U/L (38-126); Aspartate Amino Transferase 26 U/L (17-59); Blood Urea Nitrogen 15 mg/dl (9-20); Carbon Dioxide 34 mmol/L (22.0-30.0); Cholesterol 211 mg/dl (140-200); Estimated Glomerular Filt Rate 64 ml/min (>60); GFR (African American) 78 ML/MIN (>60); Triglycerides 90 mg/dl (30-150); VLDL Cholesterol 18 mg/dL (0-40)
[2020-05-04 12:25] LABS: Albumin Level 4.3 g/dl (3.5-5.0); Albumin/Globulin Ratio 1.4 (1.1-1.8); Calcium 9.7 mg/dl (8.4-10.2); Chol/HDL Ratio 3.6 (1-3.5); Globulin 3.1 g/dL (1.3-3.2); Glucose 102 mg/dl (74-100); HDL Cholesterol 59 mg/dl (40-60); Total Protein,Serum 7.4 g/dl (6.3-8.2)
[2020-05-04 12:36] LABS: Direct LDL Cholesterol 130.12 mg/dL (100-129)
[2020-05-04 12:56] LABS: Thyroid Stimulating Hormone 0.88 uIU/mL (0.465-4.68)
[2020-05-05 17:37] LABS: PSA, Free 1.13 ng/mL; Prostate Specific Ag 4.3 ng/mL (0.0-4.0)
== END ==
PROVIDERS: Visit Provider Family Medicine
DX: I10 Essential (primary) hypertension (principal); E78.00 Pure hypercholesterolemia, unspecified; R97.20 Elevated prostate specific antigen [PSA]
CPT/HCPCS: 36415; 80053; 80061; 82043; 82570; 84153; 84154; 84443

== ENCOUNTER → 2020-12-12 09:15 | Outpatient (CLI) | payer MEDICARE, SELFPAY ==
--- NOTE | 2020-12-12 | CA_ITS ---
APPROVED REPORT EXAM: Comprehensive 2D, Doppler, and color-flow Echocardiogram Mate Relief: Luna Mcfarland RT(R) Ht: 5 ft 6 in Wt: 160lbs BSA: 1.82 BP: 159/87 mmHg Indications: CP, COPD, murmur, smoker, palpitations, iguinal hernia, CAD, hx CABG Echo Enhancing Agent Indication: Endocardial border delineation Agent(s) / Amount(s) Used: Definity 2 cc 2D Dimensions LVOT 1.98 cm (M/F) 1.5-2.5 LA Volume 38.10 mL LA Volume Index 20.93 mL/m2 (M/F) 16-34 M-Mode Dimensions RVDd 2.16 cm (0.9-2.6) LA Diam 3.11 cm (1.9-4.0) LVDd 4.57 cm (3.5-5.7) Ao Diam 2.67 cm (2.0-3.7) LVDs 3.66 cm (3.5-5.7) IVSd 0.69 cm (0.6-1.1) PWd 0.84 cm (0.6-1.1) EF (Teich) 41.00% FS 19.90% EDV (Teich) 95.90 mL ESV (Teich) 56.60 mL LV Diastology E Decel Time 187.00 (160-240 msec) E/A Ratio 0.7 MED E' 9.20 (< 7 cm/sec) E'/MED E' Ratio 9.10 (>14) LAT E' 11.80 (<10 cm/sec) E/LAT E' Ratio 7.09 (>14) Aortic Valve LVOT Max 115.00 (70-110 cm/s) LVOT VTI 22.85 cm AoV Peak Galindo. 149.00 (50-130 cm/s) AO Peak GR. 8.90 mmHg AO Mean GR. 4.40 (<5 mmHg) AO VTI 28.77 (18-25 cm) DARLING (VTI) 2.45 (2.5-4.5 cm2) Mitral Valve MV E Max Galindo. 84.00 (40-130 cm/s) MV A Velocity 122.00 (40-130 cm/s) E/A Ratio 0.69 MV Decel. Time 187.00 (160-240 ms) MV PHT 55.00 ms Left Ventricle Left atrium is mildly enlarged, left ventricle is normal size, mild concentric left ventricular hypertrophy, visually estimated ejection fraction 50% with no regional wall motion abnormality, Definity contrast was utilized to delineate the endocardial surfaces, there is no left ventricular thrombus seen. Grade 1 diastolic dysfunction seen without tissue Doppler evidence of raise left atrial pressure. Right Ventricle Right atrium and right ventricle mildly enlarged with normal contractility. Aortic Valve Aortic valve is thickened and calcified without Doppler evidence of aortic stenosis or aortic insufficiency. Mitral Valve Mitral valve grossly normal, there is mild mitral regurgitation. Tricuspid Valve Tricuspid valve grossly normal, there is mild tricuspid regurgitation noted, tricuspid regurgitation jet velocity is inadequate for calculation of the right ventricular systolic pressure. Pulmonic Valve Pulmonic valve is poorly visualized. Great Vessels Aortic root is normal size. Inferior vena cava is poorly visualized. Pericardium No significant pericardial effusion noted. Conclusion 1. Mild biatrial enlargement, normal left ventricular size, mild concentric left ventricular hypertrophy, visually estimated ejection fraction 50% with no regional wall motion abnormality, there is no left ventricular thrombus seen, grade 1 diastolic dysfunction seen without tissue Doppler evidence of raise left atrial pressure. 2. Mildly enlarged right ventricle with normal contractility. 3. Mild mitral and tricuspid regurgitation. 4. No significant pericardial effusion noted. Electronically signed by : Bobby Springer MD 12/12/2020 19:19:45
== END ==
PROVIDERS: PCP Family Medicine; Visit Provider Family Medicine
DX: K40.90 Unilateral inguinal hernia, without obstruction or gangrene, not specified as recurrent (principal); Z01.810 Encounter for preprocedural cardiovascular examination; R01.1 Cardiac murmur, unspecified; I25.10 Atherosclerotic heart disease of native coronary artery without angina pectoris
CPT/HCPCS: 93306; Q9957

== ENCOUNTER → 2021-01-10 08:22 | Outpatient (CLI) | payer MEDICARE, SELFPAY ==
[2021-01-10 08:25] LABS: Microscopic, Urine URINE MICROSCOPIC (MICROSCOPIC)
[2021-01-10 08:53] LABS: Basophils # 0.1 K/mm3 (0-0.2); Basophils % 1.2 % (0.1-2.0); Eosinophils # 0.4 K/mm3 (0.0-0.4); Eosinophils % 4.6 % (0.1-12.0); Hematocrit 42.8 % (42.0-52.0); Hemoglobin 13.7 g/dL (14.1-18.0); Lymphocytes # 3.3 K/mm3 (0.7-4.5); Lymphocytes % 37.7 % (10-50); Mean Corpuscular Hemoglobin 31.3 pg (27.0-31.2); Mean Corpuscular Volume 97.7 fl (80-94); Monocytes # 0.5 K/mm3 (0.1-1.0); Neutrophils # 4.4 K/mm3 (1.8-7.8); Neutrophils % 50.5 % (37.0-80.0); Platelet Count 255 K/mm3 (142-424); Red Blood Count 4.38 M/mm3 (4.60-6.20); Red Cell Distribution Width 12.9 % (11.5-17.5); White Blood Count 8.7 K/mm3 (4.8-10.8)
[2021-01-10 09:49] LABS: Appearance,Urine CLEAR (Clear); Bilirubin,Urine Negative (Negative); Blood, Urine Negative (Negative); Color,Urine YELLOW (Yellow); Glucose,Urine (UA) Negative (Negative); Ketones,Urine Negative (Negative); Leukocyte Esterase,Urine Negative (Negative); Nitrate,Urine Negative (Negative); Protein,Urine Negative (Negative); Specific Gravity, Urine 1.025 (1.005-1.030); Urobilinogen,Urine 0.2 EU/dl (0.2)
[2021-01-10 10:01] LABS: Squamous Epithelial Cell,Urine Occasional #/hpf (0-5); WBC,Urine Occasional #/hpf (0-3)
[2021-01-10 10:19] LABS: Chloride 103 mmol/L (98-107)
[2021-01-10 10:20] LABS: Sodium 141 mmol/L (136-145)
[2021-01-10 10:23] LABS: Blood Urea Nitrogen 16 mg/dl (9-20); Calcium 9.3 mg/dl (8.4-10.2); Carbon Dioxide 31 mmol/L (22.0-30.0); Estimated Glomerular Filt Rate 64 ml/min (>60); GFR (African American) 78 ML/MIN (>60); Glucose 93 mg/dl (74-100)
== END ==
PROVIDERS: Visit Provider Surgery
DX: K40.90 Unilateral inguinal hernia, without obstruction or gangrene, not specified as recurrent (principal); K52.9 Noninfective gastroenteritis and colitis, unspecified; Z01.812 Encounter for preprocedural laboratory examination; Z11.52 Encounter for screening for COVID-19
CPT/HCPCS: 36415; 80048; 81001; 85025; C9803; U0003; U0005

== ENCOUNTER 2021-01-12 07:48 | Day surgery (SDC) | payer MEDICARE, SELFPAY ==
[2021-01-08 10:47] VITALS: BMI 25.0
[2021-01-12] VITALS (11 sets, daily range): BP systolic 127–187; BP diastolic 48–88; PULSE 50–83; RESP 16–20; TEMP 36.2–43; O2SAT 92–100
--- NOTE | 2021-01-12 08:28 | ECG_ITS ---
APPROVED REPORT Exam: Resting ECG HR:76 bpm ECG Measurements Heart Rate 76 AXES ID 250 P 77 QRSd 86 QRS 36 QT 378 T 44 QTc 425 Conclusion Sinus rhythm with 1st degree AV block Late r wave progression, unchanged Abnormal ECG Electronically signed by : Cleve Grijalva MD 01/12/2021 14:24:54
--- NOTE | 2021-01-12 11:34 | P.OP_ITS ---
Date of procedure: 01/12/21 Pre-op Diagnosis:: Left inguinal hernia Post-op Diagnosis:: Complex sliding left inguinal hernia Procedure performed:: Open left inguinal hernia repair Surgeon:: Apollo Escalante MD Advertising Operations Manager(s):: Delfino CHILI POWDER MIXER:: Robbie Cardenas Anesthesia: GETA Estimated blood loss (mL): 15 Operative findings:: Severe adhesions throughout canal Complex indirect defect with sliding component Operative note:: After informed consent was obtained the patient was taken to the operating room and placed in the supine position. General anesthesia was induced and his abdomen/groin/scrotum was prepped and draped in a sterile fashion. After infiltration local anesthetic an oblique left groin incision was made. A combination of sharp dissection and electrocautery was utilized to transect through Shannan's fascia to the level of the external aponeurosis. The external aponeurosis was sharply opened to the level of the external ring. The contents of the canal were carefully elevated. Severe adhesions noted throughout. A very large indirect defect with palpable bowel loop confirmed. Dissection within the canal in order to separate the vas deferens/vessels and hernia sac was particularly difficult secondary to these adhesions. The hernia sac was carefully and opened. A sliding defect was confirmed. No obvious injury to the colon was noted. Once the hernia sac was freed to the level of the internal ring the opening in the sac was reapproximated with running Vicryl suture. The sac was inverted and an extra-large PerFix plug was secured in position with 0 Ethibond. The PerFix overlay was then secured to the shelving edge inferiorly and fascial margin superiorly with interrupted Ethibond. The external aponeurosis was reapproximated with running Vicryl suture. Shannan's fascia was closed in a similar manner. Skin was then closed with 3-0 Stratafix. Dressings were applied and the patient was transferred recovery in stable condition after extubation. Condition: stable Disposition: PACU Specimens:: None Complications:: No immediate
--- NOTE | 2021-01-12 11:47 | HMH.ANESCL ---
[facility] Anesthesia Checklist - Patient Identification Patient Identification: Arm Band - Structural Data Admitted From: Home Planned Operative Procedure/s: Left Inguinal Hernia Repair Consent for Planned Operative Procedure(s) Verified: Yes Verified Documents: Surgical Consent, History and Physical - NPO Status Verified Time NPO: 00:00 - Additional verifications Anesthesia Reactions: No Hx Blood Transfusions: Yes Blood Transfusion Reaction: No - Airway Assessment C-Spine Mobility Assessed: Yes (mp2) TMJ Mobility Assessed: Yes Dentition: Edentulous - Neurological Assessment Level of Consciousness: Awake, Alert - Anesthesia Plan Anesthesia Risk discussed: Yes Anesthesia Plan: Verified ASA Class: III Anesthesia Type: General [facility] History I have reviewed the patient's past medical history: Yes Medical History: Reports:: Atherosclerotic Heart Disease, Coronary Artery Disease, Gastroesophageal Reflux Disease(GERD), Heart Murmur, Hyperlipidemia, Hypertension, Kidney Stones, Myocardial Infarction Denies:: Cancer, Cerebrovascular Accident, Deep Vein Thrombosis, Diabetes Mellitus Type 1, Diabetes Mellitus Type 2, Internal Pacemaker, MRSA, Seizures *Have you ever received a pneumonia vaccine?: No *Have you received a flu vaccine this season?: No Other Medical History: Reports: Arthritis, Cataracts, Sinus Problems. Denies: Blood Transfusion Reaction Anesthesia experience/problems:: nac Laterality Cases: Left: Arthroscopy Hip Other Surgeries: Yes: CABG, Cardiac Catheterization, Colonoscopy, EGD, Other. No: Pacemaker Amputation: No Fractures: Yes - *Social History Last grade of school completed: 9th or 10th Smoking Status: Current some day smoker Tobacco Type: smokeless tobacco # Packs/Day (cigarettes): 1 Alcohol Intake: current Alcohol Intake Frequency:: 0-2 drinks per day Substance Use Type: denies use *Occupational Status:: retired Housing: house Household Members: spouse *Travel in the last 8 weeks: None Family Hx:: Cancer, Diabetes, Kidney Disease
--- NOTE | 2021-01-12 11:50 | HMH.ANESI ---
[facility] Anesthesia Record Part I Intake, IV Amount: 1,200 Estimated blood loss (mL): 10 Urine output (mL): 500 Blood Pressure: 158/66 SaO2: 92 Pulse Rate: 81 Respiratory Rate: 16 Temperature: 99.7 F Patient is:: Drowsy Stable to PACU at:: 11:45
[2021-01-12 14:38] LABS: Microscopic,Cath URINE MICROSCOPIC (MICROSCOPIC)
[2021-01-12 14:54] LABS: Appearance,Urine/Cath CLEAR (Clear); Bilirubin,Cath Negative (Negative); Blood, Urine/Cath Negative (Negative); Color,Urine/Cath YELLOW (Yellow); Glucose,Urine/Cath (UA) Negative (Negative); Ketones,Urine/Cath Negative (Negative); Leukocyte Esterase,Cath Negative (Negative); Nitrate,Cath Negative (Negative); Protein,Urine/Cath Negative (Negative)
[2021-01-12 15:08] LABS: WBC,Urine/Cath Occasional #/hpf (0-3)
--- NOTE | 2021-01-15 08:27 | P.PN_ITS ---
[facility] Anesthesia Record Part II Discharge Time: 12:15 Destination: Surgical Day Care (OP Surgery) PACU nurse assessment reviewed?: Yes Patient Condition:: Good Anesthesia Complications:: None Swallowing reflex intact?: Yes Cyanosis?: No Blood Pressure: 160/78 Pulse Rate: 69 Temperature: 97.2 F Mental Status: Alert & Oriented Pain level:: 0 Nausea and/or vomitting:: None Intake, IV Amount: 0
[2021-01-15 08:28] VITALS: BP 160/78; PULSE 69; TEMP 36.2
== END 2021-01-12 13:15 | disposition home or self-care (01) ==
LOC: OR 07:50
PROVIDERS: PCP Family Medicine; Visit Provider Surgery
DX: K40.90 Unilateral inguinal hernia, without obstruction or gangrene, not specified as recurrent (principal); K66.0 Peritoneal adhesions (postprocedural) (postinfection); I25.10 Atherosclerotic heart disease of native coronary artery without angina pectoris; K21.9 Gastro-esophageal reflux disease without esophagitis; E78.5 Hyperlipidemia, unspecified; I10 Essential (primary) hypertension; I25.2 Old myocardial infarction; M19.90 Unspecified osteoarthritis, unspecified site; Z72.0 Tobacco use; Z80.9 Family history of malignant neoplasm, unspecified; Z83.3 Family history of diabetes mellitus; Z84.1 Family history of disorders of kidney and ureter
CPT/HCPCS: 49525; 81001; 93005; 96374; J2405

== ENCOUNTER 2021-07-06 15:06 | Emergency (ER) | payer MEDICARE, SELFPAY ==
[2021-07-06] VITALS (8 sets, daily range): BP systolic 140–187; BP diastolic 72–93; PULSE 70–90; RESP 12–17; TEMP 37.1; O2SAT 97–100; BMI 24.3
--- NOTE | 2021-07-06 15:32 | CT_ITS ---
FINAL REPORT CLINICAL HISTORY: syncopal episode FINDINGS: Axial images of the head were obtained without contrast. Coronal reformatted images were also obtained. This study was performed with techniques to keep radiation doses as low as reasonably achievable (ALARA). Individualized dose reduction techniques using automated exposure control or adjustment of mA and/or kV according to the patient's size were employed. There is generalized age-appropriate atrophy. Periventricular low-attenuation areas are seen consistent with moderate chronic ischemic changes. There is no evidence of intracranial hemorrhage or mass. There is no evidence of acute infarct. There is bilateral chronic basal ganglia lacunar infarct. There is no evidence of shift of the midline structures. No skull abnormality is seen on the bone window images. IMPRESSION: Atrophy and moderate periventricular chronic ischemic changes. No acute intracranial abnormality identified. Reviewed, Interpreted and Dictated by Romero Kraft III, MD Transcribed by Dania Hernandez Authenticated by Romero Kraft III, MD on 07/06/2021 04:35:56 PM [facility]
--- NOTE | 2021-07-06 15:32 | XR_ITS ---
FINAL REPORT CLINICAL HISTORY: syncopal FINDINGS: SINGLE-VIEW CHEST The heart size is normal. The patient is status post median sternotomy. There is mild left base scarring. The lungs are otherwise clear. There is no pneumothorax. IMPRESSION: No acute cardiopulmonary process. Reviewed, Interpreted and Dictated by Romero Kraft III, MD Transcribed by Nessa Peterson Authenticated by Romero Karft III, MD on 07/06/2021 04:35:[address] [facility]
--- NOTE | 2021-07-06 15:33 | ECG_ITS ---
APPROVED REPORT Exam: Resting ECG HR:69 bpm ECG Measurements Heart Rate 69 AXES DE 225 P 65 QRSd 82 QRS 31 QT 387 T 55 QTc 407 Conclusion SINUS RHYTHM WITH FIRST DEGREE AV BLOCK SEPTAL MYOCARDIAL INFARCTION , PROBABLY OLD [40+ ms Q WAVE IN V1/V2] ABNORMAL ECG UNCONFIRMED REPORT Electronically signed by : Cleve Grijalva MD 07/07/2021 12:10:28
[2021-07-06 15:42] LABS: POC Glucose,Bedside 98 (70-110)
[2021-07-06 15:52] LABS: Basophils # 0.1 K/mm3 (0-0.2); Basophils % 1.9 % (0.1-2.0); Eosinophils # 0.2 K/mm3 (0.0-0.4); Eosinophils % 3.6 % (0.1-12.0); Hematocrit 42.7 % (42.0-52.0); Hemoglobin 13.8 g/dL (14.1-18.0); Lymphocytes # 1.5 K/mm3 (0.7-4.5); Mean Corpuscular HGB Conc 32.4 g/dL (31.8-35.4); Mean Corpuscular Hemoglobin 30.9 pg (27.0-31.2); Mean Corpuscular Volume 95.3 fl (80-94); Mean Platelet Volume 8.2 fl (7.4-10.4); Monocytes # 0.5 K/mm3 (0.1-1.0); Neutrophils # 4.2 K/mm3 (1.8-7.8); Neutrophils % 64.4 % (37.0-80.0); Platelet Count 237 K/mm3 (142-424); Red Blood Count 4.48 M/mm3 (4.60-6.20); Red Cell Distribution Width 13.2 % (11.5-17.5); White Blood Count 6.6 K/mm3 (4.8-10.8)
[2021-07-06 16:46] LABS: Chloride 104 mmol/L (98-107); Potassium 4.3 mmoL/L (3.5-5.1); Sodium 137 mmol/L (136-145)
[2021-07-06 16:49] LABS: Anion Gap 7.3 mEq/L (5-15); Blood Urea Nitrogen 22 mg/dl (9-20); Carbon Dioxide 30 mmol/L (22.0-30.0); Creatinine Clearance Estimated 53 mL/min (50-200); Estimated Glomerular Filt Rate 58 ml/min (>60); GFR (African American) 70 ML/MIN (>60); Glucose 101 mg/dl (74-100)
[2021-07-06 17:04] LABS: Troponin I < 0.01 ng/ml (0.00-0.034)
--- NOTE | 2021-07-06 18:13 | PC.NURSE ---
notified pt/family increased pt volume in ER at this time is causing increased wait times.
--- NOTE | 2021-07-06 19:14 | HMH.EDGENADL ---
ED Disposition Clinical Impression: Syncope and collapse Hypertension Qualifiers: Hypertension type: unspecified Qualified Code(s): I10 - Essential (primary) hypertension Disposition: Home, Self-Care Condition on Discharge: Good Instructions: DI for Syncope in Adults (Fainting), DI for High Blood Pressure Additional Instructions: See Dr. Sharif in his office tomorrow. Take your usual medications and add Norvasc 5 mg daily. Begin tomorrow. Prescriptions: Amlodipine Besylate [Norvasc 5mg tablet] 5 mg PO DAILY #30 tab Transmission Status: Pending to [facility] Referrals: Nicolas Sharif MD [Primary Care Provider] - - Critical Care Critical Care Time: No Attestation: On 07/06/21, the high probability of a clinically significant, sudden or life threatening deterioration of the following system(s) required my full and direct attention, intervention and personal management. The time I documented below is in addition to time spent performing reported procedures but includes the following listed in this critical care notation. Medical Decision Making - Kristian Inquiry Pt receiving controlled substance: No Vital Signs: 07/06/21 15:07 07/06/21 15:40 07/06/21 16:10 Temperature 98.7 F Temperature Source Oral Pulse Rate 70 75 Pulse Rate [Right Radial] 84 Respiratory Rate 17 12 16 Blood Pressure 167/72 H 175/75 H Blood Pressure [Right Arm] 179/80 H Blood Pressure Mean [Right Arm] 113 Blood Pressure Source [Right Arm] Automatic Cuff Blood Pressure Position [Right Arm] Sitting 02 Sat by Pulse Oximetry 100 100 100 Oxygen Delivery Method Room Air 07/06/21 16:30 07/06/21 17:00 07/06/21 17:30 Temperature Temperature Source Pulse Rate 78 82 80 Pulse Rate [Right Radial] Respiratory Rate 17 16 17 Blood Pressure 183/76 H 187/93 H 187/92 H Blood Pressure [Right Arm] Blood Pressure Mean [Right Arm] Blood Pressure Source [Right Arm] Blood Pressure Position [Right Arm] 02 Sat by Pulse Oximetry 100 99 99 Oxygen Delivery Method 07/06/21 18:45 Temperature Temperature Source Pulse Rate 90 Pulse Rate [Right Radial] Respiratory Rate 16 Blood Pressure 140/91 H Blood Pressure [Right Arm] Blood Pressure Mean [Right Arm] Blood Pressure Source [Right Arm] Blood Pressure Position [Right Arm] 02 Sat by Pulse Oximetry 97 Oxygen Delivery Method - Lab Data Lab Results 07/06/21 15:23: WBC 6.6, RBC 4.48 L, Hgb 13.8 L, Hct 42.7, MCV 95.3 H, MCH 30.9, MCHC 32.4, RDW 13.2, Plt Count 237, MPV 8.2, Neut % (Auto) 64.4, Lymph % (Auto) 23.0, [place] % (Auto) 7.0, Eos % (Auto) 3.6, Baso % (Auto) 1.9, Neut # (Auto) 4.2, Lymph # (Auto) 1.5, [place] # (Auto) 0.5, Eos # (Auto) 0.2, Baso # (Auto) 0.1 07/06/21 15:35: POC Glucose 98 07/06/21 16:00: Sodium 137, Potassium 4.3, Chloride 104, Carbon Dioxide 30, Anion Gap 7.3, BUN 22 H, Creatinine 1.20, Estimated Creat Clear 53, Estimated GFR 58 L, Est GFR ( Amer) 70, Glucose 101 H, Calcium 8.0 L, Troponin I < 0.01 07/06/21 18:36: Troponin I < 0.01 Result diagrams: 07/06/21 15:23 07/06/21 16:00 Orders (Tests/Meds): ED MEDICATIONS Generic Name Dose Route Start Last Admin Trade Name Freq PRN Reason Stop Dose Admin Sodium Chloride 10 ml 07/06/21 15:32 Sodium Chloride 0.9% 10ml Flush Syringe IV 08/05/21 15:31 NEEDED PRN Maintain IV Site Discontinued Medications Generic Name Dose Route Start Last Admin Trade Name Freq PRN Reason Stop Dose Admin Lactated Ringer's 1,000 mls @ 999 mls/hr 07/06/21 15:45 07/06/21 15:38 Lactated Ringer's 1000 Ml Bag IV 07/06/21 16:45 999 mls/hr .Q1H1M IVORY Administration ORDERS Category Date Time Status Troponin I Q3H Lab 07/06/21 21:45 Ordered - ECG Data Tracing #1 EKG interpreted by Herber Claire MD: Rhythm: sinus Rate: 69 [place]: normal Ectopy: none Conduction: First-degree AV block ST Segment Changes: none T Wave Changes:
[2021-07-06 19:27] LABS: Troponin I < 0.01 ng/ml (0.00-0.034)
== END 2021-07-06 19:59 | disposition home or self-care (01) ==
PROVIDERS: Emergency Provider Emergency Medicine; PCP Family Medicine
DX: R55 Syncope and collapse (principal); I10 Essential (primary) hypertension; I25.10 Atherosclerotic heart disease of native coronary artery without angina pectoris; K21.9 Gastro-esophageal reflux disease without esophagitis; E78.5 Hyperlipidemia, unspecified; R01.1 Cardiac murmur, unspecified; I25.2 Old myocardial infarction; F17.210 Nicotine dependence, cigarettes, uncomplicated; Z79.899 Other long term (current) drug therapy
CPT/HCPCS: 36415; 70450; 71045; 80048; 82962; 84484; 85025; 93005; 96360; 99284

== ENCOUNTER → 2021-07-11 09:19 | Outpatient (CLI) | payer MEDICARE, SELFPAY ==
--- NOTE | 2021-07-11 | CA_ITS ---
FINAL REPORT TECHNIQUE: Color Doppler, duplex Doppler and sandhu scale sonography of the bilateral neck arterial vasculature was performed. Velocities were measured in the carotid arteries. Stenosis evaluation based on the validated velocity criteria. CLINICAL HISTORY: syncope, smokeless tobacco, CAD, hx CABG, BRITTNEY, HTN, hyperlipidemia. FINDINGS: The peak systolic velocity of the right common carotid artery is 68 cm/s. The peak systolic velocity of the right internal carotid artery is 246 cm/s and end diastolic velocity 31 cm/s. The ICA/CCA ratio is 3.74. A moderate amount of plaque is present. The right external carotid artery is patent. The right vertebral artery is patent with antegrade flow. The peak systolic velocity of the left common carotid artery is 145 cm/s. The peak systolic velocity of the left internal carotid artery is 156 cm/s and end diastolic velocity 37 cm/s. The ICA/CCA ratio is 1.62. A moderate amount of plaque is present. The left external carotid artery is patent.The left vertebral artery is patent with antegrade flow. IMPRESSION: Less than 50% left carotid stenosis. Greater than 50% right carotid stenosis. Recommend CTA to better evaluate the right internal carotid artery. Bilateral patent vertebral arteries with antegrade flow. Reviewed, Interpreted and Dictated by Stef Rowe MD Transcribed by Dania Hernandez Authenticated by Stef Rowe MD on 07/11/2021 01:32:19 PM [facility]
== END ==
PROVIDERS: PCP Family Medicine; Visit Provider Family Medicine
DX: R09.89 Other specified symptoms and signs involving the circulatory and respiratory systems (principal)
CPT/HCPCS: 93880

== ENCOUNTER → 2021-07-17 10:57 | Outpatient (CLI) | payer MEDICARE, SELFPAY ==
[2021-07-17 11:35] LABS: Blood Urea Nitrogen 21 mg/dl (9-20); Estimated Glomerular Filt Rate 58 ml/min (>60); GFR (African American) 70 ML/MIN (>60)
== END ==
PROVIDERS: Visit Provider Family Medicine
DX: R09.89 Other specified symptoms and signs involving the circulatory and respiratory systems (principal)
CPT/HCPCS: 36415; 82565; 84520

== ENCOUNTER → 2021-07-20 12:41 | Outpatient (CLI) | payer MEDICARE, SELFPAY ==
--- NOTE | 2021-07-20 12:49 | CT_ITS ---
FINAL REPORT TECHNIQUE: Thin section axial CT with contrast with multiplanar reconstruction. NASCET criteria and technique was utilized during interpretation. This study was performed with techniques to keep radiation doses as low as reasonably achievable (ALARA). Individualized dose reduction techniques using automated exposure control or adjustment of mA and/or kV according to the patient's size were employed. 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 There is biapical pleural and parenchymal scarring. No mass is identified. There are mild hypertrophic changes of degenerative disc disease at C5-6 and C6-7. Aortic arch: There is extensive plaque formation at the carotid bifurcations bilaterally.. Right carotid: There is approximately 80% stenosis of the proximal right ICA. Left carotid: Approximately 50% stenosis of the proximal left ICA. Vertebrals: No significant stenosis is present . IMPRESSION: 80% stenosis of the proximal right ICA. 50% stenosis of the proximal left ICA. Reviewed, Interpreted and Dictated by Stef Rowe MD Transcribed by Kim Marina Authenticated by Stef Rowe MD on 07/20/2021 04:03:30 PM [facility]
== END ==
PROVIDERS: PCP Family Medicine; Visit Provider Family Medicine
DX: I65.21 Occlusion and stenosis of right carotid artery (principal); R09.89 Other specified symptoms and signs involving the circulatory and respiratory systems
CPT/HCPCS: 70498; Q9967

== ENCOUNTER → 2022-07-01 14:32 | Outpatient (CLI) | payer MEDICARE, SELFPAY ==
--- NOTE | 2022-07-01 | CA_ITS ---
FINAL REPORT TECHNIQUE: Ultrasound images of the deep venous system were obtained from the left groin to the calf veins. CLINICAL HISTORY: LLE pain post injury on farm 1 week ago. LLE edema x 1 week. HTN, smokeless tobacco. 325 mg ASA daily. FINDINGS: The deep venous system is normally compressible. Normal flow is identified. IMPRESSION: No evidence of left lower extremity DVT. Reviewed, Interpreted and Dictated by Romero Kraft III, MD Transcribed by Aaron Mcgrath Authenticated and [facility]
== END ==
PROVIDERS: PCP Family Medicine; Visit Provider Family Medicine
DX: M79.605 Pain in left leg (principal)
CPT/HCPCS: 93971

== ENCOUNTER 2022-08-04 15:54 | Emergency (ER) | payer MEDICARE, SELFPAY ==
--- NOTE | 2022-08-04 15:49 | ECG_ITS ---
APPROVED REPORT Exam: Resting ECG HR:66 bpm ECG Measurements Heart Rate 66 AXES W[place] 248 P 52 QRSd 88 QRS 42 QT 388 T 58 QTc 402 Conclusion SINUS RHYTHM WITH FIRST DEGREE AV BLOCK ABNORMAL ECG UNCONFIRMED REPORT Electronically signed by : Cleve Grijalva MD 08/05/2022 20:22:59
[2022-08-04 15:52] VITALS: BP 150/75; PULSE 70; RESP 18; TEMP 36.5; O2SAT 99; BMI 22.9
[2022-08-04 16:00] VITALS: BP 151/68; PULSE 67; RESP 18; O2SAT 100
[2022-08-04 16:09] LABS: Basophils # 0.1 K/mm3 (0-0.2); Basophils % 0.7 % (0.1-2.0); Eosinophils # 0.2 K/mm3 (0.0-0.4); Eosinophils % 2.1 % (0.1-12.0); Hematocrit 33.3 % (42.0-52.0); Hemoglobin 11.1 g/dL (14.1-18.0); Lymphocytes # 3.5 K/mm3 (0.7-4.5); Lymphocytes % 30.8 % (10-50); Mean Corpuscular HGB Conc 33.3 g/dL (31.8-35.4); Mean Corpuscular Hemoglobin 30.7 pg (27.0-31.2); Mean Corpuscular Volume 92.1 fl (80-94); Mean Platelet Volume 7.9 fl (7.4-10.4); Monocytes # 0.9 K/mm3 (0.1-1.0); Monocytes % 7.8 % (1.7-9.3); Neutrophils # 6.6 K/mm3 (1.8-7.8); Neutrophils % 58.5 % (37.0-80.0); Platelet Count 329 K/mm3 (142-424); Red Blood Count 3.62 M/mm3 (4.60-6.20); Red Cell Distribution Width 13.1 % (11.5-17.5); White Blood Count 11.2 K/mm3 (4.8-10.8)
[2022-08-04 16:10] LABS: Chloride 101 mmol/L (98-107)
[2022-08-04 16:11] LABS: Potassium 3.5 mmoL/L (3.5-5.1); Sodium 137 mmol/L (136-145)
[2022-08-04 16:13] LABS: Alanine Aminotransferase 20 U/L (12-78); Aspartate Amino Transferase 29 U/L (17-59); Blood Urea Nitrogen 15 mg/dl (9-20); Creatinine Clearance Estimated 39 mL/min (50-200); Estimated Glomerular Filt Rate 49 ml/min (>60); GFR (African American) 59 ML/MIN (>60)
[2022-08-04 16:14] LABS: Albumin Level 3.6 g/dl (3.5-5.0); Albumin/Globulin Ratio 1.2 (1.1-1.8); Alkaline Phosphatase 126 U/L (38-126); Anion Gap 7.5 mEq/L (5-15); Bilirubin,Total 0.5 mg/dl (0.2-1.3); Calcium 8.6 mg/dl (8.4-10.2); Carbon Dioxide 32 mmol/L (22.0-30.0); Globulin 2.9 g/dL (1.3-3.2); Glucose 150 mg/dl (74-100); Total Protein,Serum 6.5 g/dl (6.3-8.2)
--- NOTE | 2022-08-04 16:17 | PC.NURSE ---
ROUNDED ON PT, AT BEDSIDE. NO NEEDS AT THIS TIME
--- NOTE | 2022-08-04 16:28 | PC.NURSE ---
DR LUGO AT BEDSIDE
[2022-08-04 16:30] VITALS: BP 166/73; PULSE 72; RESP 18; O2SAT 100
--- NOTE | 2022-08-04 16:32 | CT_ITS ---
PROCEDURE INFORMATION: Exam: CT Head Without Contrast Exam date and time: 08/04/2022 4:46 PM Age: 82 years old Clinical indication: Other: CVA TECHNIQUE: Imaging protocol: Computed tomography of the head without contrast. Radiation optimization: All CT scans at this facility use at least one of these dose optimization techniques: automated exposure control; mA and/or kV adjustment per patient size (includes targeted exams where dose is matched to clinical indication); or iterative reconstruction. REPORTING DATA: Count of CT and Cardiac NM exams in prior 12 months: This patient has received 0 known CTs and 0 known cardiac nuclear medicine studies in the 12 months prior to the current study. COMPARISON: CT HEAD/BRAIN WO CON 07/06/2021 3:41 PM FINDINGS: Brain: Age-related involutional changes and chronic microvascular ischemic disease. No evidence for acute transcortical infarct. No mass effect or midline shift. No extra-axial collection. No acute intracranial hemorrhage. Basal cisterns are patent. Cerebral ventricles: No ventriculomegaly. Paranasal sinuses: Visualized sinuses are unremarkable. No fluid levels. Mastoid air cells: Visualized mastoid air cells are well aerated. Bones/joints: Unremarkable. No acute fracture. Soft tissues: Unremarkable. IMPRESSION: No evidence for acute transcortical infarct, acute intracranial hemorrhage, or mass effect.
--- NOTE | 2022-08-04 16:44 | PC.NURSE ---
PT TO CT
--- NOTE | 2022-08-04 16:50 | PC.NURSE ---
pt return from CT
[2022-08-04 17:00] VITALS: BP 162/74; PULSE 76; RESP 18; O2SAT 100
--- NOTE | 2022-08-04 17:15 | PC.NURSE ---
ROUNDED ON PT, UPDATED AT THIS TIME. WARM BLANKET PROVIDED. FAMILY AT BEDSIDE
--- NOTE | 2022-08-04 17:20 | PC.NURSE ---
rounded on pt at this time, pt and staff no needs at this time, call delcid in reach
[2022-08-04 17:30] VITALS: BP 168/72; PULSE 68; RESP 20; O2SAT 100
--- NOTE | 2022-08-04 17:47 | PC.NURSE ---
DR LUGO AT BEDSIDE TO UPDATE PT AND FAMILY
--- NOTE | 2022-08-04 17:53 | HMH.EDGENADL ---
Discharge Plan Disposition Patient Disposition: Home, Self-Care Condition: Good Chief Complaint: Weakness Prescriptions Prescriptions: No Action aspirin 325 MG tablet 325 mg PO DAILY ramipril 5 mg capsule 10 mg PO DAILY omeprazole 20 capsule,delayed release(DR/EC) 20 mg PO DAILY saw palmetto 500 MG capsule 540 mg PO DAILY amlodipine 5 MG tablet 5 mg PO DAILY Qty: 30 0RF Referrals Follow up/Referrals: Nicolas Sharif MD [Primary Care Provider] - See instructions Clinical Impressions Clinical Impression: Vagal reaction Discharge ED Provider: Doug Pro General Adult HPI General Chief complaint: Weakness Stated complaint: weakness Time Seen by Provider: 08/04/22 16:00 Mode of Arrival: EMS Source of Information: Patient and EMS Limitations: No Limitations Description of Symptoms (Recalled from ER Triage Doc. by RN): PT BROUGHT IN VIA EMS FOR STROKE EMS REPORTS PT WAS UNRESPONSIVE AT SCENE. PT REPORTS HE FELL ASLEEP PT MORE ALERT ONCE IN AMBULANCE, UPON ARRIVAL PT ORIENTED X4. PT DENIES COMPLAINTS. PT MOVES ALL EXTREMITIES. SPEECH CLEAR. NO DEFICITS NOTED. REPORTS NORMAL AT 1400 History of Present Illness HPI narrative: 82yo M presents to the ER via EMS secondary to strokelike symptoms. Patient's found him on the porch unresponsive. EMS arrived on scene and the patient was alert but groggy. Patient reports he fell asleep sitting in the sun with tobacco in his mouth. He denies any pain, focal neurodeficit. No recent illness. Related Data Home Medications Medication Instructions Recorded Confirmed aspirin 325 mg tablet 325 mg PO DAILY heart health 12/25/17 03/14/21 omeprazole 20 mg capsule,delayed 20 mg PO DAILY GERD 06/24/18 03/14/21 release ramipril 5 mg capsule 10 mg PO DAILY bp 11/28/20 03/14/21 saw palmetto 500 mg capsule 540 mg PO DAILY PROSTATE 01/12/21 03/14/21 Previous Rx's Medication Instructions Recorded amlodipine 5 mg tablet 5 mg PO DAILY #30 tabs 07/06/21 Allergies Allergy/AdvReac Type Severity Reaction Status Date / Time tamsulosin Allergy Dizziness Verified 03/14/21 09:08 [facility] Disclaimer: The information contained in this section may have been updated after the patient was seen, as this information can be updated by other users. Social History Smoking Status: Current some day smoker tobacco type: smokeless tobacco alcohol intake: current substance use type: denies use current occupational status: retired Travel in the last 8 weeks: None household members: spouse housing: house current occupation: [employer] current occupational exposures/hazards: Yes ([employer]) caffeine: Yes ROS Obtained: Yes Systems reviewed as appropriate & no additional complaints except as documented Physical Exam General General appearance: alert and in no apparent distress Head Head exam: atraumatic Eye Eye exam: Present normal appearance, PERRL and EOMI ENT ENT exam: Present mucous membranes moist Neck Neck exam: Present normal inspection and trachea midline Chest Chest inspection: Present symmetric chest wall rise Respiratory Respiratory exam: Present normal lung sounds bilaterally; Absent respiratory distress Cardiovascular Cardiovascular exam: Present regular rate, normal rhythm and normal heart sounds Abdominal Exam Abdominal exam: Present soft; Absent tenderness Neurological Exam Neurological exam: Present alert, CN II-XII intact and other (NIH stroke scale 1 (wrong year)); Absent oriented X3 (Oriented to person and place but not time (missed the year)) Psychiatric Psychiatric exam: Present normal affect and normal mood Skin Skin exam: Present warm Medical Decision Making Medical Records Medical records reviewed: Yes I reviewed the patient's medical records. Kristian Inquiry Pt receiving controlled substance: No Vital Signs: 08/04/22 15:52 08/04/22 16
[2022-08-04 18:09] VITALS: BP 159/78; PULSE 81; RESP 17; TEMP 36.7; O2SAT 100
== END 2022-08-04 18:10 | disposition home or self-care (01) ==
PROVIDERS: Emergency Provider Family Medicine; PCP Family Medicine
DX: R53.1 Weakness (principal); F17.290 Nicotine dependence, other tobacco product, uncomplicated
CPT/HCPCS: 70450; 80053; 85025; 93005; 96360; 99285

== ENCOUNTER → 2022-11-04 11:20 | Outpatient (CLI) | payer MEDICARE, SELFPAY ==
[2022-11-04 12:28] LABS: Alanine Aminotransferase 13 U/L (12-78); Albumin Level 3.9 g/dl (3.5-5.0); Albumin/Globulin Ratio 1.3 (1.1-1.8); Alkaline Phosphatase 116 U/L (38-126); Anion Gap 10.2 mEq/L (5-15); Aspartate Amino Transferase 20 U/L (17-59); Bilirubin,Total 0.5 mg/dl (0.2-1.3); Blood Urea Nitrogen 20 mg/dl (9-20); Carbon Dioxide 30 mmol/L (22.0-30.0); Chloride 104 mmol/L (98-107); Chol/HDL Ratio 3.7 (1-3.5); Cholesterol 194 mg/dl (140-200); Estimated Glomerular Filt Rate 58 ml/min (>60); GFR (African American) 70 ML/MIN (>60); Globulin 2.9 g/dL (1.3-3.2); Glucose 89 mg/dl (74-100); HDL Cholesterol 52 mg/dl (40-60); Potassium 4.2 mmoL/L (3.5-5.1); Sodium 140 mmol/L (136-145); Total Protein,Serum 6.8 g/dl (6.3-8.2); Triglycerides 98 mg/dl (30-150); VLDL Cholesterol 20 mg/dL (0-40)
[2022-11-04 12:38] LABS: Direct LDL Cholesterol 114.66 mg/dL (100-129)
[2022-11-04 12:58] LABS: Prostate Specific Ag Screen 6.3 ng/ml (0.0-4.0)
[2022-11-04 13:17] LABS: Creatinine,Urine Random 99 mg/dL (Not Estab.)
== END ==
PROVIDERS: PCP Family Medicine; Visit Provider Urology
DX: I10 Essential (primary) hypertension (principal); Z12.5 Encounter for screening for malignant neoplasm of prostate; E78.00 Pure hypercholesterolemia, unspecified; N18.31 Chronic kidney disease, stage 3a; R97.20 Elevated prostate specific antigen [PSA]
CPT/HCPCS: 36415; 80053; 80061; 82043; 82570; G0103

== ENCOUNTER 2023-01-07 07:50 | Day surgery (SDC) | payer MEDICARE, SELFPAY ==
[2023-01-03 13:35] VITALS: BMI 23.5
[2023-01-07] VITALS (7 sets, daily range): BP systolic 175–213; BP diastolic 84–94; PULSE 68–84; RESP 16–18; TEMP 36.5–36.9; O2SAT 98–100
== END 2023-01-07 10:00 | disposition home or self-care (01) ==
PROVIDERS: PCP Family Medicine; Visit Provider Ophthalmology
PROC: (CPT 66984; principal; 2023-01-07 09:30)
DX: H25.811 Combined forms of age-related cataract, right eye (principal)
CPT/HCPCS: 66984; V2632

== ENCOUNTER 2023-05-15 13:12 | Outpatient (CLI) | payer MEDICARE, SELFPAY ==
--- NOTE | 2023-05-15 13:18 | CA_ITS ---
FINAL REPORT TECHNIQUE: Color Doppler, duplex Doppler and sandhu scale sonography of the bilateral neck arterial vasculature was performed. Velocities were measured in the carotid arteries. Stenosis evaluation based on the validated velocity criteria. CLINICAL HISTORY: BRITTNEY,HTN FINDINGS: The peak systolic velocity of the right common carotid artery is 66 cm/s. The peak systolic velocity of the right internal carotid artery is 180 cm/s and end diastolic velocity 16 cm/s. The ICA/CCA ratio is 3.3. A cfos-[id number]-vclbarbs amount of plaque is present. The right external carotid artery is patent. The right vertebral artery is patent with antegrade flow. The peak systolic velocity of the left common carotid artery is 122 cm/s. The peak systolic velocity of the left internal carotid artery is 151 cm/s and end diastolic velocity 29 cm/s. The ICA/CCA ratio is 1.7. A mild to moderate amount of plaque is present. The left external carotid artery is patent. The left vertebral artery is patent with antegrade flow. IMPRESSION: 50-69% carotid stenosis on the right. Less than 50% carotid stenosis on the left. Bilateral patent vertebral arteries with antegrade flow. If indicated, CTA or MRA could further evaluate. Reviewed, Interpreted and Dictated by Josselyn Meng MD Transcribed by Nessa Peterson Authenticated and [facility]
== END 2023-05-15 23:59 ==
LOC: RT 13:13
PROVIDERS: PCP Family Medicine; Visit Provider Family Medicine
DX: I65.23 Occlusion and stenosis of bilateral carotid arteries (principal)
CPT/HCPCS: 93880

== ENCOUNTER 2023-11-02 02:38 | Inpatient (IN) | payer MEDICARE, SELFPAY ==
[2023-11-02] VITALS (30 sets, daily range): BP systolic 96–196; BP diastolic 56–100; PULSE 59–97; RESP 15–20; TEMP 36.3–36.9; O2SAT 90–100; BMI 22.8
--- NOTE | 2023-11-02 02:48 | XR_ITS ---
PROCEDURE INFORMATION: Exam: XR Chest Exam date and time: 11/02/2023 2:52 AM Age: 83 years old Clinical indication: Pain; Chest pressure; Additional info: Cp cough TECHNIQUE: Imaging protocol: Radiologic exam of the chest. Views: 2 views. COMPARISON: CR XR CHEST PORTABLE 07/06/2021 3:38 PM FINDINGS: Lungs: Chronic interstitial changes. Left basilar airspace disease, scar versus early infiltrate versus atelectasis. Pleural spaces: Unremarkable. No pleural effusion. No pneumothorax. Heart/Mediastinum: Unremarkable. No cardiomegaly. Bones/joints: Median sternotomy. IMPRESSION: Median sternotomy. Chronic interstitial changes. Left basilar airspace disease, scar versus early infiltrate versus atelectasis.
[2023-11-02] MEDS: ASPIRIN 81MG CHEWABLE TABLET 324 MG PO (02:52)
[2023-11-02 02:55] LABS: Basophils # 0.1 K/mm3 (0-0.2); Basophils % 0.5 % (0.1-2.0); Eosinophils # 0.5 K/mm3 (0.0-0.4); Eosinophils % 4.3 % (0.1-12.0); Hematocrit 37.9 % (42.0-52.0); Hemoglobin 12.3 g/dL (14.1-18.0); Lymphocytes # 3.4 K/mm3 (0.7-4.5); Lymphocytes % 32.7 % (10-50); Mean Corpuscular HGB Conc 32.4 g/dL (31.8-35.4); Mean Corpuscular Volume 98.7 fl (80-94); Mean Platelet Volume 7.8 fl (7.4-10.4); Monocytes # 0.5 K/mm3 (0.1-1.0); Monocytes % 4.7 % (1.7-9.3); Neutrophils % 57.8 % (37.0-80.0); Platelet Count 188 K/mm3 (142-424); Red Blood Count 3.84 M/mm3 (4.60-6.20); Red Cell Distribution Width 13.5 % (11.5-17.5); White Blood Count 10.4 K/mm3 (4.8-10.8)
[2023-11-02 02:58] LABS: Albumin Level 4.2 g/dl (3.5-5.0); Chloride 106 mmol/L (98-107); Potassium 4.1 mmoL/L (3.5-5.1); Sodium 139 mmol/L (136-145)
--- NOTE | 2023-11-02 03:00 | ECG_ITS ---
APPROVED REPORT Exam: Resting ECG HR:90 bpm ECG Measurements Heart Rate 90 AXES AR 307 P 82 QRSd 97 QRS 59 QT 343 T 135 QTc 391 Conclusion SINUS RHYTHM WITH FIRST DEGREE AV BLOCK LEFT VENTRICULAR HYPERTROPHY AND ST-T CHANGE [VOLTAGE CRITERIA PLUS ST/T ABNORMALITY] ABNORMAL ECG Depression in multiple leads, no consistent findings of STEMI despite elevation in lead aVR Electronically signed by : ZACKERY OROSCO, 11/02/2023 06:52:34
[2023-11-02 03:01] LABS: Alanine Aminotransferase 23 U/L (12-78); Albumin/Globulin Ratio 1.4 (1.1-1.8); Alkaline Phosphatase 130 U/L (38-126); Anion Gap 9.1 mEq/L (5-15); Aspartate Amino Transferase 40 U/L (17-59); Bilirubin,Total 0.8 mg/dl (0.2-1.3); Blood Urea Nitrogen 23 mg/dl (9-20); Calcium 8.9 mg/dl (8.4-10.2); Carbon Dioxide 28 mmol/L (22.0-30.0); Creatinine Clearance Estimated 41 mL/min (50-200); Estimated Glomerular Filt Rate 53 ml/min (>60); GFR (African American) 64 ML/MIN (>60); Glucose 113 mg/dl (74-100); Total Protein,Serum 7.2 g/dl (6.3-8.2)
--- NOTE | 2023-11-02 03:03 | HMH.EDCP ---
Discharge Plan Disposition Patient Disposition: Admitted Condition: Fair Chief Complaint: Chest Pain Clinical Impressions Clinical Impression: Non-ST elevation IL (NSTEMI), AV block, Chest pain Discharge ED Provider: Len Bravo General Chief Complaint: Chest Pain Stated Complaint: Chest pain w/ cough Time Seen by Provider: 11/02/23 02:40 Mode of Arrival: Ambulatory Source of Information: Patient Limitations: No Limitations Description of Symptoms (Recalled from ER Triage Doc. by RN): Pt presents to ED for Chest Pain that is worse when he coughs. Pt states this has been going on for over a week. Pt is A&O*4 and is bedside. History of Present Illness HPI narrative: 83-year-old male with history of CAD, triple bypass presents to the ER for complaints of chest pain that is worse when he coughs. Patient reports chest pain is primarily in the center and radiating to the right side of the chest and has been going on intermittently for over a week. Patient is alert and oriented. He was ambulatory into the ER. He states he has had intermittent cough and tonight had small amount of blood-streaked sputum. He has had no fevers, he does not report acute recent illness. He denies any headache, dizziness, difficulty breathing, numbness, tingling, weakness, abdominal pain, nausea, vomiting, diarrhea. No peripheral edema. Patient does not report any symptoms change with rest or exertion. Related Data Home Medications ?Medication ?Instructions ?Recorded ?Confirmed aspirin 325 mg tablet 325 mg PO DAILY heart health 12/25/17 11/02/23 omeprazole 20 mg capsule,delayed 20 mg PO DAILY GERD 06/24/18 11/02/23 release saw palmetto 500 mg capsule 540 mg PO DAILY PROSTATE 01/12/21 11/02/23 Previous Rx's ?Medication ?Instructions ?Recorded amlodipine 5 mg tablet 5 mg PO DAILY #30 tabs 07/06/21 Allergies Allergy/AdvReac Type Severity Reaction Status Date / Time tamsulosin Allergy Dizziness Verified 01/07/23 08:15 [facility] Disclaimer: The information contained in this section may have been updated after the patient was seen, as this information can be updated by other users. Medical History (Updated 11/02/23 @ 05:15 by Len Bravo MD) History of hip fracture History of CAD (coronary artery disease) History of gastroesophageal reflux (GERD) History of hypertension History of prostate disorder Surgical History History of neck surgery History of hernia repair History of coronary artery bypass graft Family History Other No significant family history Social History Smoking Status: Unknown if ever smoked alcohol intake: former substance use type: denies use current occupational status: retired Travel in the last 8 weeks: None household members: spouse housing: house current occupation: [employer] current occupational exposures/hazards: Yes ([employer]) caffeine: Yes ROS Obtained: Yes All systems reviewed & no additional complaints except as documented Positive ROS per HPI Physical Exam General General appearance: alert and in no apparent distress Head Head exam: atraumatic and normocephalic Eye Eye exam: Present PERRL and EOMI ENT ENT exam: Present mucous membranes moist Neck Neck exam: Present normal inspection and full ROM Chest Chest inspection: Present symmetric chest wall rise; Absent tenderness Respiratory Respiratory exam: Absent normal lung sounds bilaterally (Mild rhonchi in the right lung griffin, clear with cough), respiratory distress, wheezes or stridor Cardiovascular Cardiovascular exam: Present regular rate and normal rhythm Abdominal Exam Abdominal exam: Present soft; Absent distention or tenderness Extremities Exam Extremities exam: Present full ROM; Absent edema Neurological Exam Neurological exam: Present alert, oriented X3, CN II-XII intact and normal gait; Absent motor sensory deficit Psychiatric Psychiatric exam: Present normal affect and normal mood Skin Skin exam: Present warm and dry HEART Score HEART Score HEART Score assessment performed?: Yes History (anamnesis): Moderately suspicious ECG: Significant ST-deviation Age: >65 years Risk factors: Atherosclerosis history Troponin: > 3x normal limit HEART Score: 9 Critical Care Critical Care Time Critical Care Time: Yes Attestation: On 11/02/23, the high probability of a clinically significant, sudden or life threatening deterioration of the following system(s) (cardiac) required my full and direct attention, intervention and personal management. The time I documented below is in addition to time spent performing reported procedures but includes the following listed in this critical care notation. Total Time Total Critical Care Time: 65 Medical Decision Making Medical Records Medical records reviewed: Yes I reviewed the patient's medical records. MR Comment: Most recent visit in our system was July of last year when he was evaluated for vagal symptoms. Prior to this patient had been evaluated after left inguinal hernia repair with Dr. Escalante in 2020. There are no cardiology notes in our system. Kristian Inquiry Pt receiving controlled substance: No Vital Signs Vital Signs: 11/02/23 02:38 11/02/23 03:08 11/02/23 03:24 Temperature 98.0 F Temperature Source Oral Pulse Rate 90 90 Pulse Rate [Left] 88 Respiratory Rate 18 16 15 Blood Pressure 196/98 H 189/95 H Blood Pressure [Right Arm] 188/100 H Blood Pressure Mean [Right Arm] 129 02 Sat by Pulse Oximetry 98 97 96 Oxygen Delivery Method Room Air 11/02/23 03:34 11/02/23 03:48 11/02/23 04:01 Temperature Temperature Source Pulse Rate 88 89 59 L Pulse Rate [Left] Respiratory Rate 17 15 Blood Pressure 157/81 H 158/73 H Blood Pressure [Right Arm] Blood Pressure Mean [Right Arm] 02 Sat by Pulse Oximetry 95 95 Oxygen Delivery Method 11/02/23 04:15 Temperature Temperature Source Pulse Rate 63 Pulse Rate [Left] Respiratory Rate 17 Blood Pressure 147/82 H Blood Pressure [Right Arm] Blood Pressure Mean [Right Arm] 02 Sat by Pulse Oximetry 95 Oxygen Delivery Method Room Air Lab Data Labs: Lab Results 11/02/23 02:45: WBC 10.4, RBC 3.84 L, Hgb 12.3 L, Hct 37.9 L, MCV 98.7 H, MCH 32.0 H, MCHC 32.4, RDW 13.5, Plt Count 188, MPV 7.8, Neut % (Auto) 57.8, Lymph % (Auto) 32.7, Faulkner % (Auto) 4.7, Eos % (Auto) 4.3, Baso % (Auto) 0.5, Neut # (Auto) 6.0, Lymph # (Auto) 3.4, Faulkner # (Auto) 0.5, Eos # (Auto) 0.5 H, Baso # (Auto) 0.1, D-Dimer 0.99 H, Sodium 139, Potassium 4.1, Chloride 106, Carbon Dioxide 28, Anion Gap 9.1, BUN 23 H, Creatinine 1.30 H, Estimated Creat Clear 41, Estimated GFR 53 L, Est GFR ( Amer) 64, Glucose 113 H, Calcium 8.9, Total Bilirubin 0.8, AST 40, ALT 23, Alkaline Phosphatase 130 H, Troponin I 1.51 H, Total Protein 7.2, Albumin 4.2, Globulin 3.0, Albumin/Globulin Ratio 1.4 11/02/23 02:45 11/02/23 02:45 Response Orders (Tests/Meds): ED MEDICATIONS Generic Name Dose Route Start Last Admin Trade Name Freq PRN Reason Stop Dose Admin Amlodipine Besylate 5 mg 11/02/23 09:00 Amlodipine 10mg Tablet PO 12/02/23 08:59 DAILY IVORY Nitroglycerin/Dextrose 250 mls @ 1.5 mls/hr 11/02/23 03:30 11/02/23 04:10 Nitroglycerin 50mg/250ml D5w IV 12/02/23 03:29 10 mcg/min .Q24H IVORY 3 mls/hr Titration Protocol 5 MCG/MIN Sodium Chloride 10 ml 11/02/23 03:49 11/02/23 03:50 Sodium Chloride 0.9% 10ml Syr (Rad Only) IV 12/02/23 03:48 10 ml NEEDED PRN Administration Maintain IV Site Discontinued Medications Generic Name Dose Route Start Last Admin Trade Name Freq PRN Reason Stop Dose Admin Aspirin 324 mg 11/02/23 02:51 11/02/23 02:52 Aspirin 81mg Chewable Tablet PO 11/02/23 02:52 324 mg ONCE ONE Administration Iopamidol 70 ml 11/02/23 03:49 11/02/23 03:50 Iopamidol-370 (76%);100ml Bottle IV 11/02/23 03:50 70 ml ONCE ONE Administration Morphine Sulfate 2 mg 11/02/23 04:26 11/02/23 04:30 Morphine 4mg/Ml Syringe IV 11/02/23 04:27 2 mg ONCE ONE Administration Sodium Chloride 50 ml 11/02/23 03:49 11/02/23 03:50 0.9 % Sodium Chloride 50 Ml Vial IV 11/02/23 03:50 50 ml ONCE ONE Administration ORDERS Category Date Time Status CT angio chest PE protocol Stat Cat Scan 11/02/23 03:10 Completed XR chest 2V Stat Exams 11/02/23 02:48 Completed Complete Blood Count Auto Diff Stat Lab 11/02/23 02:45 Completed Comprehensive Metabolic Panel Stat Lab 11/02/23 02:45 Completed D-Dimer Stat Lab 11/02/23 02:45 Completed Troponin I Q3H Lab 11/02/23 02:45 Completed Troponin I Q3H Lab 11/02/23 06:00 Ordered Troponin I Q3H Lab 11/02/23 09:00 Ordered ECG Request Stat Y 11/02/23 03:11 Ordered MDM Narrative Medical Decision Narrative: 2In summary, this 83-year-old male presents to the emergency department today with central and right-sided chest pain, cough, mild blood-streaked sputum. On initial evaluation patient is hemodynamically stable, afebrile, mild rhonchi that clear with cough in the right lung field, no respiratory distress, no peripheral edema, abdomen soft, nontender, no chest wall tenderness. Differential diagnosis includes but is not limited to ACS, PE, pneumonia, bronchitis, viral syndrome, electrolyte abnormality, dehydration, kidney dysfunction, liver dysfunction, hypertensive urgency, hypertensive emergency, symptomatic hypertension. Based on these concerns, I ordered cardiac workup, serum labs, D-dimer. ECG personally interpreted demonstrates sinus rhythm with first-degree AV block, rate 90, patient has ST depression in lead I, 2, aVF, V3 through V6. Isolated ST elevation in lead aVR. This does not meet criteria for STEMI though I do have concerns for possible ischemic changes. Repeat ECG and posterior ECG will be performed. Posterior ECG personally interpreted demonstrates sinus rhythm, first-degree AV block, rate 99, elevated aVR, leads V7 through 9 do not have elevation which does offer some reassurance against posterior IL. Repeat standard ECG demonstrates sinus rhythm, first-degree AV block, rate 89, normal axis, no dynamic changes from the initial ECG. Labs personally reviewed demonstrate no leukocytosis, mild anemia, nonspecific and nonactionable, normal platelets, D-dimer positive at 0.99 even when adjusted for patient's age. Patient requires CTA PE to further evaluate for pulmonary embolism. Patient does have findings of mild kidney dysfunction though his BUN and creatinine are similar to prior. Alkaline phosphatase trace elevated at 130, nonspecific. Patient has a critical high troponin at 1.51. This increases my suspicion for acute cardiac abnormality. Dr. Tirado was paged for consultation. After reviewing the ECGs he does not believe the patient has findings of STEMI but is concerned about the abnormalities. Since patient is hypertensive, he recommends nitro drip in an attempt to improve patient's blood pressure and his symptoms. He agrees with the CTA PE which I have ordered due to positive dimer. Patient received nitro drip for treatment. Chest x-ray personally interpreted demonstrates blunting of the left costophrenic angle, no obvious lobar infiltrate. No pneumothorax. See radiology read for final interpretation. CTA PE personally interpreted does not demonstrate large PE, I also appreciate mild interstitial changes in the lungs. See radiology read for final interpretation. On reassessment, patient's blood pressure has improved, systolic now 158, he is having new arrhythmia on the monitor with decreasing heart rate, repeat ECG performed to further evaluate this. He reports he is still having central chest pain. Nitro drip was increased for further blood pressure management. My goal is a reduction in his systolic blood pressure around 145 for a reduction of approximately 20%. Repeat ECG demonstrates sinus rhythm, patient continues having AV block however it appears to have a gradually prolonging MN interval with a dropped beat concerning for secondary AV block, Mobitz 1. I had an interactive discussion with Dr. Tirado again about patient's ECG changes including the change in his AV block and persistent symptoms despite improvement in blood pressure. He is not recommending heparin but does plan to catheterize the patient and asked us to call in the cardiac cath team. He recommended small amount of morphine for comfort for the patient in the meantime.. Throughout the process, patient and family have been updated. They understand that patient will be going for cardiac cath and will be admitted. Patient continues to be stable. I called Dr. Sharif and discussed this patient's presentation as well as plan for cardiac catheterization. Due to other cardiac emergency, patient will be next on the list for cardiac cath so he will be admitted prior to his cath being performed. Dr. Sharif excepted the patient for admission on continued nitro drip with the knowledge patient will undergo cardiac catheterization. He was admitted in stable condition
[2023-11-02 03:06] LABS: D-Dimer 0.99 ug/mL (0.0-0.5)
--- NOTE | 2023-11-02 03:10 | CT_ITS ---
PROCEDURE INFORMATION: Exam: CTA Chest With Contrast Exam date and time: 11/02/2023 3:42 AM Age: 83 years old Clinical indication: Pain; Chest pressure; Additional info: Chest pain, trace hemoptysis, dimer+ TECHNIQUE: Imaging protocol: Computed tomographic angiography of the chest with contrast. Exam focused on the arteries. 3D rendering (Not supervised by radiologist): MIP and/or 3D reconstructed images were created by the technologist. Radiation optimization: All CT scans at this facility use at least one of these dose optimization techniques: automated exposure control; mA and/or kV adjustment per patient size (includes targeted exams where dose is matched to clinical indication); or iterative reconstruction. Contrast material: ISOVUE; Contrast volume: 70 ml; Contrast route: INTRAVENOUS (IV); COMPARISON: CR XR CHEST 2V 11/02/2023 2:52 AM FINDINGS: Pulmonary arteries: Normal. No pulmonary emboli. Aorta: Diffuse aortic atherosclerosis without aneurysm. Lungs: Basilar atelectasis. Some patchy airspace disease is seen in the right lung base. Pleural spaces: Trace bilateral pleural effusions. Left pleural calcifications. No evidence of pleural mass. Heart: Unremarkable. No cardiomegaly. No pericardial effusion. Coronary arteries: Coronary atherosclerosis. Lymph nodes: Unremarkable. No enlarged lymph nodes. Bones/joints: Median sternotomy, status post CABG. Soft tissues: Unremarkable. IMPRESSION: 1. No evidence of pulmonary embolus. 2. Patchy left basilar airspace disease, atelectasis versus early infiltrate. 3. Coronary atherosclerosis, status post CABG. 4. Trace bilateral pleural effusions.
[2023-11-02 03:14] LABS: Troponin I 1.51 ng/ml (0.00-0.034)
--- NOTE | 2023-11-02 03:20 | PC.NURSE ---
Sent Dr. Tirado images of the 2 EKG's to review for possible stemi. He reached back out to say, not a stemi .
--- NOTE | 2023-11-02 03:22 | PC.NURSE ---
Dr. Bravo is s/w Dr. Tirado.
--- NOTE | 2023-11-02 03:30 | ECG_ITS ---
APPROVED REPORT Exam: Resting ECG HR:99 bpm ECG Measurements Heart Rate 99 AXES NJ 246 P 83 QRSd 101 QRS 52 QT 339 T 154 QTc 395 Conclusion Posterior ECG, lead V4/V5/V6 are actually lead V7/V8/V9, respectively SINUS RHYTHM WITH FIRST DEGREE AV BLOCK ST DEVIATION AND MODERATE T-WAVE ABNORMALITY, CONSIDER LATERAL ISCHEMIA [-0.1+ mV T-WAVE IN I/aVL/V5/V6] ABNORMAL ECG No STEMI, persistent depressions Electronically signed by : ZACKERY OROSCO, 11/02/2023 06:53:34
[2023-11-02] MEDS: NITROGLYCERIN IN 5 % DEXTROSE 250 ML 1.5 MG IV (03:33)
[2023-11-02] MEDS: SODIUM CHLORIDE 0.9% 10ML SYR (RAD ONLY) 10 ML IV (03:50)
[2023-11-02] MEDS: 0.9 % SODIUM CHLORIDE 50 ML VIAL IV (03:50)
[2023-11-02] MEDS: IOPAMIDOL-370 (76%);100ML BOTTLE 70 ML IV (03:50)
--- NOTE | 2023-11-02 04:12 | ECG_ITS ---
APPROVED REPORT Exam: Resting ECG HR:70 bpm ECG Measurements Heart Rate 70 AXES MS 289 P 74 QRSd 106 QRS 60 QT 424 T 105 QTc 445 Conclusion SINUS RHYTHM WITH FIRST DEGREE AV BLOCK WITH FREQUENT SUPRAVENTRICULAR PREMATURE COMPLEXES LEFT VENTRICULAR HYPERTROPHY AND ST-T CHANGE [VOLTAGE CRITERIA PLUS ST/T ABNORMALITY] POSSIBLE SEPTAL MYOCARDIAL INFARCTION , PROBABLY OLD [30 ms Q WAVE IN V1/V2] ABNORMAL ECG UNCONFIRMED REPORT Electronically signed by : Cleve Grijalva MD 11/02/2023 13:44:10
[2023-11-02] MEDS: MORPHINE 4MG/ML SYRINGE 2 MG IV (04:30)
--- NOTE | 2023-11-02 04:56 | PC.NURSE ---
Pt and family discussed code status with this RN. Pt and family have decided that pt is FULL CODE. This RN educated patient and family regarding code status. Pt and family have no further questions at this time.
--- NOTE | 2023-11-02 05:07 | IR_ITS ---
APPROVED REPORT Patient Location: Emergent Drycleaner: LUIS Flores RT (R) PROCEDURES Selective engagement of the left internal mammary artery to the LAD and diagonal artery left heart catheterization Left ventriculogram Selective coronary angiogram Drug-eluting stent deployment to the ostial proximal mid and distal dominant right coronary artery in a contiguous manner Catheter placed in the ascending aorta Ascending aortography Bilateral selective renal angiography INDICATION Acute non-ST elevation myocardial infarction, History of coronary bypass surgery, Malignant hypertension, Chronic renal failure creatinine 1.3, Suspect renal artery stenosis, High clinical suspicion for renal artery stenosis Informed consent was obtained prior to the procedure. COMPLICATIONS NONE Estimated Blood Loss: LESS THAN 10 ML TECHNIQUE One percent lidocaine used to anesthetize the right groin. The right femoral artery was accessed via the Seldinger technique and a 5 German sheath was placed in the right femoral artery. A JL 4, JR4 catheter were used to perform left heart catheterization, left ventriculogram selective coronary angiography as well as selective engagement of the left internal mammary artery to the LAD and first diagonal artery. At the end the diagnostic angiogram therapeutic Was administered giving a therapeutic ACT and a 3 DRC guide catheter was placed in the right coronary artery followed by Choice PT extra-support wire placed on the right coronary artery. A 2.5 x 27 mm noncompliant balloon was deployed at 20 jhonathan to predilate the stenosis. Following this a 2.75 x 38 mm [place] frontier stent was placed in the ostial proximal segment and deployed at 20 jhonathan. A choice floppy wire was then used to cross the occluded right coronary artery. A 2.5 x 20 mm noncompliant balloon was then deployed distal to the RV marginal into the right coronary artery. Following this a 2.5 x 38 mm [place] frontier stent was then deployed at 20 jhonathan reducing the critical stenosis to 0%. The balloon was brought back and deployed at 24 jhonathan to mesh the 2 stents. 800 mcg of intracoronary nitroglycerin was administered. Following this the 2-1 AV block resolved completely. The catheter was then placed in the ascending aorta and ascending arteriography was performed which did not demonstrate evidence of any vein graft. Bilateral selective renal angiography was performed. Patient had malignant hypertension with renal insufficiency with a high likelihood of renal artery stenosis. Patient had systolic blood pressures of 190 and had a creatinine of 1.3. The clinical suspicion of renal artery stenosis was high. At the end the procedure the apparatus was removed the groin is reprepped closure change sheath was removed and hemostasis was achieved using Perclose device patient was transferred to the postop putting in stable condition ANGIOGRAPHIC RESULTS The left main artery Ostially occluded The right coronary artery Dominant with proximal 90% mid vessel 90% stenosis distal segment is subtotally occluded in the distal dominant right coronary and posterior descending artery The LAMB ventriculogram reveals Preserved at 60% with mild inferior wall hypokinesis The left ventricular end-diastolic pressure 20 mmHg ATKINSON to LAD is a widely patent graft and anastomosis to the mid LAD. The LAD is patent and has retrograde filling from the ATKINSON graft. 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 Plavix and aspirin 2. IV fluids given the copious contrast and renal insufficiency 3. Supportive care 4. LDL less than 55 to proceed with high intensity statin 5. Echocardiogram Friday 6. Renal duplex Friday to determine if the left renal artery stenosis is hemodynamically significant. Patient had a complex procedure with copious contrast and it was decided if this lesion is going to be revascularized is to be done at another time 7. Better control of hypertension Electronically signed by : Elver Tirado MD 11/02/2023 06:55:27
--- NOTE | 2023-11-02 05:35 | PC.NURSE ---
patient arrived via stretcher @05:25
--- NOTE | 2023-11-02 05:40 | PC.NURSE ---
Informed from housekeeping supervisor hotel that concrete plant laborer is ready for patient transport. Patient placed on zoll for transportation, and nitro gtt stopped and disconnected from patient due to BP 130/87 and below value for gtt continuation per ER MD Dr. Bravo who requests patient systolic remain >145.
--- NOTE | 2023-11-02 05:51 | PC.NURSE ---
patient left floor via stretcher to [employer] Artist @05:46
[2023-11-02] MEDS: HEPARIN 1,000 UNITS/500ML NS (CATH LAB) 3000 UNIT IV (06:01)
[2023-11-02] MEDS: LIDOCAINE 1% 10ML MDV 20 ML IJ (06:01)
[2023-11-02] MEDS: diphenhydrAMINE 50MG/ML VIAL 50 MG IV (06:01)
[2023-11-02] MEDS: 0.9 % SODIUM CHLORIDE 500 ML 25 ML IV (06:02)
[2023-11-02] MEDS: MIDAZOLAM HCL 1MG/1ML 5ML VIAL 1 MG IV (06:05)
[2023-11-02] MEDS: LABETALOL 20MG/4ML SYRINGE 20 MG IV (06:11)
[2023-11-02 06:17] LABS: Troponin I 3.04 ng/ml (0.00-0.034)
[2023-11-02] MEDS: HEPARIN 1,000 UNITS/ML 10ML VIAL (CATH LAB) 10000 UNIT IV (06:21)
[2023-11-02] MEDS: MIDAZOLAM 2MG/2ML VIAL 1 MG IV (06:40)
[2023-11-02] MEDS: CLOPIDOGREL 300MG TABLET 600 MG PO (06:46)
--- NOTE | 2023-11-02 07:12 | PC.NURSE ---
from computer lab para professional at [phone]
[2023-11-02] MEDS: IOPAMIDOL-370 (76%);100ML BOTTLE 150 ML IV (07:31)
[2023-11-02 07:33] LABS: CATHL Activated Clotting Time 271 SEC (74-125)
--- NOTE | 2023-11-02 09:17 | HMH.PHAINT1 ---
Pharmacy Intervention Comments: MEDICATION RECONCILIATION COMPLETED ON PATIENT USING EXTERNAL FILL HISTORY FROM PHARMACY. -MARNI ARSHAD, DOMINIQUED
[2023-11-02] MEDS: LACTATED RINGERS 1000ML 1,000 ML 75 ML IV (09:43)
[2023-11-02] MEDS: ASPIRIN EC 81MG TABLET 81 MG PO (10:14)
[2023-11-02] MEDS: CLOPIDOGREL 75MG TAB 75 MG PO (10:14)
--- NOTE | 2023-11-02 11:13 | P.HP_ITS ---
History of Present Illness *Admission Date: 11/02/23 *Reason for visit:: Chest pain *History of present illness: Mr. Vivas is an 83 year old patient of [facility] with a history of CAD, who presented to [facility] ER overnight complaining of intermittent chest pain for about 1 week. The pain was a little worse with exertion. On the day of admission he coughed up a small amount of blood. He denied leg edema, PND and orthopnea. He had a 3 vessel CABG in 1998. [facility] Disclaimer: The information contained in this section may have been updated after the patient was seen, as this information can be updated by other users. Medical History (Updated 11/02/23 @ 11:34 by Nicolas Sharif MD) Cervical disc herniation Osteoarthritis Kidney stones Lumbar disc disease Lumbar facet arthropathy Lumbar compression fracture Chronic low back pain Closed left hip fracture Hyperlipidemia Elevated PSA BPH (benign prostatic hyperplasia) Hypertension Carotid bruit GERD (gastroesophageal reflux disease) CAD (coronary artery disease) Surgical History (Updated 11/02/23 @ 11:31 by Nicolas Sharif MD) Status post hip surgery H/O left inguinal hernia repair History of neck surgery History of coronary artery bypass graft Family History (Updated 11/02/23 @ 07:36 by Meghan Perez RN) Family history of kidney stone No significant family history Family history of cancer Social History (Updated 11/02/23 @ 07:38 by Meghan Perez, NATE) Smoking Status: Unknown if ever smoked alcohol intake: never substance use type: denies use current occupational status: retired Travel in the last 8 weeks: None household members: spouse housing: house current occupation: [employer] current occupational exposures/hazards: Yes ([employer]) caffeine: Yes Review of Systems Constitutional Constitutional: Denies chills and Denies fever(s) ENT Ears, Nose, Mouth, and Throat: Denies dizziness *Cardiovascular Cardiovascular: Reports as per HPI *Respiratory Respiratory: Denies wheezing *Gastrointestinal Gastrointestinal: Denies abdominal pain *Genitourinary Genitourinary: Denies dysuria *Musculoskeletal Musculoskeletal: Reports arthralgias *Neurologic Neurologic: Denies dizziness Allergic/Immunologic Allergic/Immunologic: Denies wheezing Meds Home Medications and Allergies Home Medications ?Medication ?Instructions ?Recorded ?Confirmed ?Type aspirin 325 mg tablet 325 mg PO DAILY 12/25/17 11/02/23 History omeprazole 20 mg capsule,delayed 20 mg PO DAILY 11/02/23 11/02/23 History release ramipril 10 mg capsule 10 mg PO BID 11/02/23 11/02/23 History New Prescriptions to Start Prescriptions: Allergies Allergy/AdvReac Type Severity Reaction Status Date / Time tamsulosin Allergy Dizziness Verified 01/07/23 08:15 Exam Data for Last 24 hours Vital signs and Labs for Last 24 Hours: Temp Pulse Resp BP Pulse Ox O2 Del Method O2 Flow Rate 97.3 F L 76 18 96/59 L 98 Nasal Cannula 2 11/02/23 08:00 11/02/23 10:05 11/02/23 10:05 11/02/23 10:05 11/02/23 10:05 11/02/23 10:49 11/02/23 10:49 Laboratory Results - last 24 hr 11/02/23 02:45: WBC 10.4, RBC 3.84 L, Hgb 12.3 L, Hct 37.9 L, MCV 98.7 H, MCH 32.0 H, MCHC 32.4, RDW 13.5, Plt Count 188, MPV 7.8, Neut % (Auto) 57.8, Lymph % (Auto) 32.7, [place] % (Auto) 4.7, Eos % (Auto) 4.3, Baso % (Auto) 0.5, Neut # (Auto) 6.0, Lymph # (Auto) 3.4, [place] # (Auto) 0.5, Eos # (Auto) 0.5 H, Baso # (Auto) 0.1, D-Dimer 0.99 H, Sodium 139, Potassium 4.1, Chloride 106, Carbon Dioxide 28, Anion Gap 9.1, BUN 23 H, Creatinine 1.30 H, Estimated Creat Clear 41, Estimated GFR 53 L, Est GFR ( Amer) 64, Glucose 113 H, Calcium 8.9, Total Bilirubin 0.8, AST 40, ALT 23, Alkaline Phosphatase 130 H, Troponin I 1.51 H, Total Protein 7.2, Albumin 4.2, Globulin 3.0, Albumin/Globulin Ratio 1.4 11/02/23 05:35: Troponin I 3.04 H 11/02/23 06:26: Activated Clotting Time 271 H* 11/02/23 09:00: Troponin I 38.80 H I & O for Last 24 hours: Intake & Output 10/30/23 10/31/23 11/01/23 11/02/23 23:59 23:59 23:59 23:59 Intake Total 0.925 / 0.925 Output Total 200 / 200 Balance -199.075 / -199.075 Weight 150 lb Constitutional Constitutional: no acute distress *Routine HEENT Exam Head: Present normocephalic Eye: Present EOMI and PERRL ENT: Present mucous membranes moist *Routine Neck Exam Neck: Present supple and carotid bruit; Absent lymphadenopathy *Routine Respiratory Exam Respiratory: Present CTA bilaterally *Routine Cardiovascular Exam Cardiovascular: Present RRR *Routine Abdominal Exam Abdominal: Present soft and normoactive bowel sounds; Absent tenderness *Routine Rectal Exam Rectal:: deferred *Routine Genitalia Exam Genitalia:: deferred *Routine Extremities Exam Extremities: Absent cyanosis, clubbing or edema *Routine Skin Exam Skin: Present warm; Absent rash *Routine Neurological Exam Neurological: Present alert and oriented X3 Assessment and Plan *Assessment and plan (1) Non-ST elevation OR (NSTEMI): Status: Acute Category: Medical Code(s): I21.4 - Non-ST elevation (NSTEMI) myocardial infarction (2) Chest pain: Status: Acute Category: Medical Code(s): R07.9 - Chest pain, unspecified (3) AV block: Status: Acute Category: Medical Code(s): I44.30 - Unspecified atrioventricular block (4) ASCVD (arteriosclerotic cardiovascular disease): Status: Chronic Category: Medical Code(s): I25.10 - Atherosclerotic heart disease of [place] coronary artery without angina pectoris (5) Hyperlipidemia: Status: Chronic Category: Medical Code(s): E78.5 - Hyperlipidemia, unspecified (6) Hypertension: Status: Chronic Qualifiers: Hypertension type: unspecified Qualified Code(s): I10 - Essential (primary) hypertension Category: Medical Code(s): I10 - Essential (primary) hypertension (7) Carotid bruit: Status: Acute Category: Medical Code(s): R09.89 - Other specified symptoms and signs involving the circulatory and respiratory systems (8) GERD (gastroesophageal reflux disease): Status: Chronic Category: Medical Code(s): K21.9 - Gastro-esophageal reflux disease without esophagitis (9) Renal artery stenosis: Status: Acute Category: Medical Code(s): I70.1 - Atherosclerosis of renal artery Plan Patient admitted for further evaluation and treatment. He had a left heart cath with 2 stents placed this morning, see report. Will start statin and beta muna. Plan to check ECHO and renal ultrasound tomorrow.
--- NOTE | 2023-11-02 16:09 | PC.NURSE ---
PT IS RESTING IN BED WITH FAMILY AT BEDSIDE. PT HAS BEEN SLEEPING ON AND OFF T/O THE SHIFT. WILL AWAKEN EASILY. 1ST DEGREE AV BLOCK NOTED ON TELEMETRY. LUNG SOUNDS DIMINISHED WITH SCATTERED RHONCHI. ABDOMEN SOFT/NON TENDER WITH ACTIVE BOWEL SOUNDS. PT AMBULATED TO THE BATHROOM WITH 2 ASSIST. CATH SITE DRESSING C/D/I. WILL CONTINUE TO MONITOR.
[2023-11-02] MEDS: ATORVASTATIN 40MG TABLET 80 MG PO (20:31)
[2023-11-02] MEDS: PANTOPRAZOLE 40MG TABLET 40 MG PO (20:31)
[2023-11-02] MEDS: CARVEDILOL 3.125MG TABLET 3.125 MG PO (20:31)
[2023-11-03] VITALS: BP 138/74; PULSE 84; PULSE 89; RESP 16; TEMP 36.8; O2SAT 95
--- NOTE | 2023-11-03 | CA_ITS ---
FINAL REPORT CLINICAL HISTORY: HTN,HX KIDNEY STONES FINDINGS: Aorta velocity: 93 cm/sec Right kidney: 10 cm. No evidence of hydronephrosis or mass. Right intrarenal RI: 0.7 Right RAR (Renal artery-Aortic Ratio): 1.89 Left Kidney: 10 cm. No evidence of hydronephrosis or mass. Left intrarenal RI: 0.7 Left RAR (Renal Artery-Aortic Ratio): 2.28 IMPRESSION: No evidence of significant renal artery stenosis. CT angiogram or postcontrast MR angiogram would be more sensitive for evaluation of possible renal artery stenosis. Reviewed, Interpreted and Dictated by Stef Rowe MD Transcribed by Kim Marina Authenticated and . [facility]
[2023-11-03] MEDS: LACTATED RINGERS 1000ML 1,000 ML 75 ML IV (02:05)
[2023-11-03 04:00] VITALS: BP 135/75; PULSE 79; PULSE 83; RESP 16; TEMP 37; O2SAT 92; BMI 56.2
--- NOTE | 2023-11-03 05:41 | PC.NURSE ---
Patient is alert and oriented, but appears to have periods of impaired short memory at times. Patient's remained at bedside throughout the night; patient has slept throughout the majority of the night. Patient's lung sounds were clear and his bowel sounds were active upon auscultation. Patient has a first degree heart block rhythm on telemetry. Patient's helped him use his urinal at the bedside a couple times this shift. Patient's right femoral cath site was observed; the tegaderm dressing and gauze were clean, dry, and intact thus far this shift. The patient has not had any complaints of pain this shift. His skin is appropriate and tanned with a leathery texture. Patient received his scheduled medications per MAY. LR is currently infusing at 75mL/hr. Patient does not have any further complaints at this time. He is currently resting supine in bed. Bed alarm on. Call light within reach.
[2023-11-03 07:10] LABS: Basophils % 0.5 % (0.1-2.0); Chloride 105 mmol/L (98-107); Eosinophils # 0.2 K/mm3 (0.0-0.4); Eosinophils % 2.7 % (0.1-12.0); Hematocrit 33.6 % (42.0-52.0); Hemoglobin 10.6 g/dL (14.1-18.0); Lymphocytes # 2.2 K/mm3 (0.7-4.5); Lymphocytes % 27.5 % (10-50); Mean Corpuscular HGB Conc 31.6 g/dL (31.8-35.4); Mean Corpuscular Hemoglobin 30.9 pg (27.0-31.2); Mean Corpuscular Volume 97.8 fl (80-94); Mean Platelet Volume 8.9 fl (7.4-10.4); Monocytes # 0.6 K/mm3 (0.1-1.0); Monocytes % 6.9 % (1.7-9.3); Neutrophils % 62.3 % (37.0-80.0); Platelet Count 183 K/mm3 (142-424); Red Blood Count 3.43 M/mm3 (4.60-6.20); Red Cell Distribution Width 14.1 % (11.5-17.5); Sodium 134 mmol/L (136-145)
[2023-11-03 07:11] LABS: Potassium 4.2 mmoL/L (3.5-5.1)
[2023-11-03 07:13] LABS: Blood Urea Nitrogen 17 mg/dl (9-20); Creatinine Clearance Estimated 45 mL/min (50-200); Estimated Glomerular Filt Rate 58 ml/min (>60); GFR (African American) 70 ML/MIN (>60)
[2023-11-03 07:14] LABS: Anion Gap 4.2 mEq/L (5-15); Calcium 8.1 mg/dl (8.4-10.2); Carbon Dioxide 29 mmol/L (22.0-30.0); Glucose 91 mg/dl (74-100)
--- NOTE | 2023-11-03 07:30 | CA_ITS ---
APPROVED REPORT EXAM: Comprehensive 2D, Doppler, and color-flow Echocardiogram [employer]: Arleen Muñoz CRT Ht: 5 ft 8 in Wt: 150lbs BSA: 1.81 BP: 96/59 mmHg Indications: Chest Pain, Non STEMI, Hyperlipidemia, Hypertension/HDD, CABG 1998, EF 50% 12/12/20, STENTS 11/02/23 2D Dimensions LA Volume 50.00 mL LA Volume Index 27.00 mL/m2 (M/F) 16-34 M-Mode Dimensions RVDd 2.68 cm (0.9-2.6) LA Diam 3.23 cm (1.9-4.0) LVDd 4.35 cm (3.5-5.7) LVDs 3.77 cm (3.5-5.7) IVSd 0.99 cm (0.6-1.1) PWd 1.46 cm (0.6-1.1) EF (Teich) 28.80% FS 13.30% EDV (Teich) 85.40 mL TAPSE 1.36 (<1.7) ESV (Teich) 60.80 mL LV Diastology E Decel Time 140 (160-240 msec) E/A Ratio 0.81 MED A' 14.70 cm/s LAT A' 17.30 cm/s Aortic Valve AO Peak GR. 7.60 mmHg Mitral Valve MV E Max Galindo. 73.0 (40-130 cm/s) MV A Velocity 90.0 (40-130 cm/s) E/A Ratio 0.81 MV PHT 41.0 ms Pulmonary Valve PV Peak Velocity 85.0 (50-150 cm/s) Tricuspid Valve TR P. Velocity 291.00 cm/s RAP Estimate 10.00 mmHg RVSP 44.00 mmHg Left Ventricle The left ventricle is normal size. Left ventricular systolic function is moderate to severely decreased. There is increased LV wall thickness. There is moderate to severe global hypokinesis. There is near akinesis of the septal, anteroseptal, and inferoseptal LV hansen. Diastolic function is indeterminate. LVEF is 30%. Right Ventricle Right ventricle is mildly dilated. Right ventricle is mildly hypokinetic. Atria Left atrium is mildly dilated. Right atrium is mildly dilated. There is no Doppler evidence of interatrial shunt. Aortic Valve The aortic valve is mildly thickened. There is no aortic valvular stenosis. Trace aortic regurgitation. Mitral Valve The mitral valve is normal in structure. No evidence of mitral valve stenosis. Trace mitral regurgitation. Tricuspid Valve The tricuspid valve leaflets are thin and pliable. Mild tricuspid regurgitation. RVSP is 25-30 mmHg. Pulmonic Valve The pulmonary valve is normal in structure. Trace pulmonic regurgitation. Great Vessels The aortic root is normal in size. The ascending aota is not well visualized. IVC is normal in size and collapses >50% with inspiration. Pericardium There is no pericardial effusion. Other Information Study Quality: Fair Conclusion Moderate to severe reduction in LV systolic function (LVEF 30%). Near akinesis of the septal, anteroseptal, and inferoseptal LV hansen. Mild RV dilation with mild reduction in RV function. Biatrial dilation. Mild TR. Electronically signed by : Concetta Espinal MD 11/03/2023 11:03:35
--- NOTE | 2023-11-03 07:30 | US_ITS ---
FINAL REPORT CLINICAL HISTORY: Renal artery stenosis COMPARISON: None FINDINGS: RENAL ULTRASOUND Ultrasound images of the kidneys were obtained. Limited images of the liver parenchyma demonstrates normal echogenicity. Visualized spleen is within normal limits. The right kidney measures 9.8 cm in length. It is normal echogenicity. There is no hydronephrosis. The left kidney measures 10.2 cm in length. It is normal echogenicity. There is no hydronephrosis. IMPRESSION: Normal renal ultrasound. Reviewed, Interpreted and Dictated by Stef Rowe MD Transcribed by Irina Lynn Authenticated and [facility]
--- NOTE | 2023-11-03 07:43 | P.PN_ITS ---
Subjective *Date: 11/03/23 *Time: 08:21 Interval history: is in the room. She stayed all night and states that he rested well. He was up to the bathroom numerous times to void. Patient awakened for assessment. He denies any chest pain and shortness of breath. He has not had a cough. He has been eating as usual. He was up in a chair yesterday without difficulties. Lab work this morning revealed a hemoglobin of 10.6 hematocrit of 33.6. Blood chemistries: Sodium 134 potassium 4.2 and BUN 17 and creatinine 1.2 GFR is 58. Medical Exam Vital signs and Labs for Last 24 Hours: Vital Signs Temp Pulse Pulse Resp BP Pulse Ox O2 Del Method 11/03/23 06:47 Room Air 11/03/23 05:00 Room Air 11/03/23 04:00 79 11/03/23 04:00 98.6 F 83 16 135/75 92 L Room Air 11/03/23 03:00 Room Air 11/03/23 01:00 Room Air 11/03/23 00:00 84 11/03/23 00:00 98.2 F 89 16 138/74 95 Room Air 11/02/23 23:00 Room Air 11/02/23 21:00 Room Air 11/02/23 20:00 89 16 97 Room Air 11/02/23 20:00 87 11/02/23 20:00 97.9 F 89 16 135/81 97 Room Air 11/02/23 18:47 Nasal Cannula 11/02/23 18:15 Room Air 11/02/23 16:31 Room Air 11/02/23 16:00 97.6 F 80 18 146/72 H 97 Room Air 11/02/23 16:00 80 11/02/23 14:52 Room Air 11/02/23 14:05 82 18 130/77 96 Room Air 11/02/23 13:05 97.6 F 88 20 153/81 H 97 Room Air 11/02/23 13:00 Room Air 11/02/23 12:05 97.8 F 78 18 135/85 98 Room Air 11/02/23 12:00 80 11/02/23 11:05 82 18 126/60 98 Nasal Cannula 11/02/23 11:00 Room Air 11/02/23 10:49 Nasal Cannula 11/02/23 10:05 76 18 96/59 L 98 Nasal Cannula 11/02/23 09:35 87 20 106/59 L 95 Nasal Cannula 11/02/23 09:05 81 20 130/70 97 Nasal Cannula 11/02/23 08:35 89 18 131/71 95 Nasal Cannula 11/02/23 08:29 Nasal Cannula 11/02/23 08:05 91 H 18 119/62 100 Nasal Cannula 11/02/23 08:00 90 11/02/23 08:00 97.3 F L 11/02/23 07:50 89 20 124/56 L 100 Nasal Cannula O2 Flow Rate 11/03/23 06:47 11/03/23 05:00 11/03/23 04:00 11/03/23 04:00 11/03/23 03:00 11/03/23 01:00 11/03/23 00:00 11/03/23 00:00 11/02/23 23:00 11/02/23 21:00 11/02/23 20:00 11/02/23 20:00 11/02/23 20:00 11/02/23 18:47 2 11/02/23 18:15 11/02/23 16:31 11/02/23 16:00 11/02/23 16:00 11/02/23 14:52 11/02/23 14:05 11/02/23 13:05 11/02/23 13:00 11/02/23 12:05 11/02/23 12:00 11/02/23 11:05 2 11/02/23 11:00 11/02/23 10:49 2 11/02/23 10:05 2 11/02/23 09:35 2 11/02/23 09:05 2 11/02/23 08:35 2 11/02/23 08:29 2 11/02/23 08:05 11/02/23 08:00 11/02/23 08:00 11/02/23 07:50 Intake and Output 11/02/23 11/03/23 11/03/23 19:59 03:59 11:59 Intake Total 743 / 743 480 / 1223 Output Total 0 / 0 500 / 500 500 / 1000 Balance 743 / 743 -20 / 723 -500 / 223 Intake: Intake, Oral Amount 270 / 270 120 / 390 Intake, Total IV Amount 473 / 473 360 / 833 Lactated Ringers 1000ML 1,000 473 / 473 360 / 833 ml @ 75 mls/hr IV .[id number] [facility] Rx#:[id number] Output: Output, Urine Amount 0 / 0 500 / 500 500 / 1000 Other: Number of Unmeasured Voids 1 1 0 Number of Bowel Movements 1 Weight 370 lb 13.08 oz Patient Weight 11/03/23 11:59 Weight 370 lb 13.08 oz Laboratory Results - last 24 hr 11/02/23 09:00: Troponin I 38.80 H 11/03/23 06:14: WBC 8.0, RBC 3.43 L, Hgb 10.6 L, Hct 33.6 L, MCV 97.8 H, MCH 30.9, MCHC 31.6 L, RDW 14.1, Plt Count 183, MPV 8.9, Neut % (Auto) 62.3, Lymph % (Auto) 27.5, Story % (Auto) 6.9, Eos % (Auto) 2.7, Baso % (Auto) 0.5, Neut # (Auto) 5.0, Lymph # (Auto) 2.2, Story # (Auto) 0.6, Eos # (Auto) 0.2, Baso # (Auto) 0.0, Sodium 134 L, Potassium 4.2, Chloride 105, Carbon Dioxide 29, Anion Gap 4.2 L, BUN 17 D, Creatinine 1.20, Estimated Creat Clear 45, Estimated GFR 58 L, Est GFR ( Amer) 70, Glucose 91, Calcium 8.1 L I & O for Labs for Last 24 Hours: Intake & Output 10/31/23 11/01/23 11/02/23 11/03/23 11:59 11:59 11:59 11:59 Intake Total 0.925 / 0.925 1223 / 1223 Output Total 200 / 200 1000 / 1000 Balance -199.075 / -199.075 223 / 223 Weight 150 lb 370 lb 13.08 oz Constitutional: Present no acute distress Comment:: Awakened for exam. He assisted with exam. Respiratory: Present CTA bilaterally (Anteriorly and posteriorly) Cardiac: Present Reg Rate and Rhythm Comment:: Monitor showing sinus rhythm GI: Present soft and normal bowel sounds; Absent distention Extremities: Present normal inspection; Absent tenderness, edema or calf tenderness Neuro: Present alert, awake and oriented x 3 Assessment and Plan *Assessment and plan (1) Non-ST elevation [place] (NSTEMI): Status: Acute Category: Medical Code(s): I21.4 - Non-ST elevation (NSTEMI) myocardial infarction (2) Chest pain: Status: Acute Category: Medical Code(s): R07.9 - Chest pain, unspecified (3) AV block: Status: Acute Category: Medical Code(s): I44.30 - Unspecified atrioventricular block (4) ASCVD (arteriosclerotic cardiovascular disease): Status: Chronic Category: Medical Code(s): I25.10 - Atherosclerotic heart disease of [place] coronary artery without angina pectoris (5) Hyperlipidemia: Status: Chronic Category: Medical Code(s): E78.5 - Hyperlipidemia, unspecified (6) Hypertension: Status: Chronic Qualifiers: Hypertension type: unspecified Qualified Code(s): I10 - Essential (primary) hypertension Category: Medical Code(s): I10 - Essential (primary) hypertension (7) Carotid bruit: Status: Acute Category: Medical Code(s): R09.89 - Other specified symptoms and signs involving the circulatory and respiratory systems (8) GERD (gastroesophageal reflux disease): Status: Chronic Category: Medical Code(s): K21.9 - Gastro-esophageal reflux disease without esophagitis (9) Renal artery stenosis: Status: Acute Category: Medical Code(s): I70.1 - Atherosclerosis of renal artery (10) Stented coronary artery: Status: Acute Category: Surgical Code(s): Z95.5 - Presence of coronary angioplasty implant and graft Plan Patient had echocardiogram this morning with pending results. Renal status stable with IV fluids. He is scheduled for renal ultrasound. Cardiology to follow as well. Dr. Sharif entry - Saw patient, he is doing well this morning, will saline lock IVF, await prelim report on Echo.
[2023-11-03 08:00] VITALS: BP 145/76; PULSE 80; RESP 16; TEMP 37.2; O2SAT 97
[2023-11-03 08:18] VITALS: BMI 21.9
[2023-11-03] MEDS: CARVEDILOL 3.125MG TABLET 3.125 MG PO (08:24)
[2023-11-03] MEDS: RAMIPRIL 2.5 MG PO (08:24)
[2023-11-03] MEDS: CLOPIDOGREL 75MG TAB 75 MG PO (08:24)
[2023-11-03] MEDS: ASPIRIN EC 81MG TABLET 81 MG PO (08:24)
[2023-11-03 09:15] LABS: Chol/HDL Ratio 3.8 (1-3.5); Cholesterol 145 mg/dl (140-200); HDL Cholesterol 38 mg/dl (40-60); Triglycerides 67 mg/dl (30-150); VLDL Cholesterol 13 mg/dL (0-40)
[2023-11-03 09:25] LABS: Direct LDL Cholesterol 92.31 mg/dL (100-129)
--- NOTE | 2023-11-03 09:48 | P.CONCA_ITS ---
History of Present Illness History of Present Illness Consult date: 11/03/23 Requesting physician: Nicolas Sharif Consult reason: chest pain Chief complaint: chest pain History of present illness: This is an 83-year-old white gentleman who presented to the emergency department complaints of chest pain. He has a past medical history of coronary artery disease with triple bypass in 1998, hypertension and hyperlipidemia. The patient states that he had been having chest pain for approximately 1 week intermittently. He states that this was in the center of his chest and radiated to the right side of his chest. This was an aching pressure sensation. It was associated with shortness of breath. He denied any nausea or diaphoresis. The patient states that he began to cough up a small amount of blood-tinged sputum so he decided to come to the emergency department. The patient was found to have an elevated troponin consistent with a non-STEMI. CTA did rule out a PE. Patient underwent left cardiac catheterization on Friday morning. 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 And he underwent stenting of the right coronary artery with 2 stents. He had a patent ATKINSON and Y graft to the LAD and diagonal artery. He had a occluded nondominant circumflex artery. The patient also had at least moderate left renal artery stenosis, possibly severe and moderate right renal artery stenosis. This morning he denies any chest pain or pressure. He denies any shortness of breath or edema. He denies any fever, chills, nausea, vomiting, diarrhea, PND orthopnea. [facility] Disclaimer: The information contained in this section may have been updated after the patient was seen, as this information can be updated by other users. Medical History (Updated 11/03/23 @ 12:25 by Yelena Ybarra APRN) LV dysfunction Acute HFrEF (heart failure with reduced ejection fraction) Ischemic cardiomyopathy Renal artery stenosis Cervical disc herniation Osteoarthritis Kidney stones Lumbar disc disease Lumbar facet arthropathy Lumbar compression fracture Chronic low back pain Closed left hip fracture Hyperlipidemia Elevated PSA BPH (benign prostatic hyperplasia) Hypertension Carotid bruit GERD (gastroesophageal reflux disease) CAD (coronary artery disease) Surgical History (Updated 11/03/23 @ 09:52 by Yelena Ybarra APRN) Stented coronary artery History of coronary artery bypass graft Status post hip surgery H/O left inguinal hernia repair History of neck surgery History of coronary artery bypass graft Family History (Updated 11/02/23 @ 07:36 by Meghan Perez RN) Other Family history of cancer Family history of kidney stone No significant family history Social History (Updated 11/02/23 @ 07:38 by Meghan Perez RN) Smoking Status: Unknown if ever smoked alcohol intake: never substance use type: denies use current occupational status: retired Travel in the last 8 weeks: None household members: spouse housing: house current occupation: [employer] current occupational exposures/hazards: Yes ([employer]) caffeine: Yes Review of Systems Review of Systems Review of systems:: pertinent systems reviewed and negative unless documented below Constitutional Constitutional: Reports system reviewed and no additional complaints, except as documented Eyes Eyes: Reports system reviewed and no additional complaints, except as documented ENT Ears, Nose, Mouth, and Throat: Reports system reviewed and no additional complaints, except as documented and Denies dizziness *Cardiovascular Cardiovascular: Reports system reviewed and no additional complaints, except as documented *Respiratory Respiratory: Reports system reviewed and no additional complaints, except as documented *Gastrointestinal Gastrointestinal: Reports system reviewed and no additional complaints, except as documented *Genitourinary Genitourinary: Reports system reviewed and no additional complaints, except as documented *Musculoskeletal Musculoskeletal: Reports system reviewed and no additional complaints, except as documented Integumentary/Breasts Skin/Breast: Reports system reviewed and no additional complaints, except as documented *Neurologic Neurologic: Reports system reviewed and no additional complaints, except as documented and Denies dizziness Psychiatric Psychiatric: Reports system reviewed and no additional complaints, except as documented Endocrine Endocrine: Reports system reviewed and no additional complaints, except as documented Hematologic/Lymphatic Hematologic/Lymphatic: Reports system reviewed and no additional complaints, except as documented Allergic/Immunologic Allergic/Immunologic: Reports system reviewed and no additional complaints, except as documented Exam Data for Last 24 hours Vital signs and Labs for Last 24 Hours: Temp Pulse Resp BP Pulse Ox O2 Del Method O2 Flow Rate 99.0 F 80 16 145/76 H 97 Room Air 2 11/03/23 08:00 11/03/23 08:00 11/03/23 08:00 11/03/23 08:00 11/03/23 08:00 11/03/23 08:00 11/02/23 18:47 Laboratory Results - last 24 hr 11/03/23 06:14: WBC 8.0, RBC 3.43 L, Hgb 10.6 L, Hct 33.6 L, MCV 97.8 H, MCH 30.9, MCHC 31.6 L, RDW 14.1, Plt Count 183, MPV 8.9, Neut % (Auto) 62.3, Lymph % (Auto) 27.5, [place] % (Auto) 6.9, Eos % (Auto) 2.7, Baso % (Auto) 0.5, Neut # (Auto) 5.0, Lymph # (Auto) 2.2, [place] # (Auto) 0.6, Eos # (Auto) 0.2, Baso # (Aut o) 0.0, Sodium 134 L, Potassium 4.2, Chloride 105, Carbon Dioxide 29, Anion Gap 4.2 L, BUN 17 D, Creatinine 1.20, Estimated Creat Clear 45, Estimated GFR 58 L, Est GFR ( Amer) 70, Glucose 91, Calcium 8.1 L, Triglycerides 67, Cholesterol 145, LDL Cholesterol Direct 92.31 L, VLDL Cholesterol 13, HDL Cholesterol 38 L, Cholesterol/HDL Ratio 3.8 H I & O for Last 24 hours: Intake & Output 10/30/11/01/23/11/03/23 23:59 23:59 23:59 23:59 Intake Total 743.925 / 1223.925 480 / 480 Output Total 200 / 600 1000 / 1000 Balance 543.925 / 623.925 -520 / -520 Weight 150 lb 144 lb 5 oz Narrative: EKG #1 shows sinus rhythm with first-degree AV block and a rate of 90 bpm and LVH. There is also lateral ST/T wave abnormalities. EKG #2 shows sinus rhythm with first-degree AV block. Rate is [address] and T wave abnormalities. EKG #3 shows sinus rhythm with first-degree AV block and PACs. His rate is 70 bpm with old lateral and old septal NE pattern. Telemetry strips this morning shows sinus rhythm with a rate in the 80s. Constitutional Constitutional: no acute distress and average body habitus *Routine HEENT Exam Head: Present normocephalic and atraumatic ENT: Present mucous membranes moist *Routine Neck Exam Neck: Present supple, full ROM and normal carotid upstroke; Absent JVD, carotid bruit or lymphadenopathy *Routine Respiratory Exam Respiratory: Present CTA bilaterally, normal respiratory effort, able to speak in complete sentences and symmetric chest movement *Routine Cardiovascular Exam Cardiovascular: Present RRR, Normal S1 and Normal S2; Absent murmur or gallop *Routine Abdominal Exam Abdominal: Present soft and normoactive bowel sounds; Absent tenderness, distended or organomegaly *Routine Extremities Exam Extremities: Present full ROM, pulses intact and normal capillary refill; Absent cyanosis, clubbing or edema *Routine Skin Exam Skin: Present intact and warm; Absent erythema *Routine Neurological Exam Neurological: Present alert, oriented X3 and CN II-XII intact; Absent sensory deficit or motor deficit Routine Psychiatric Exam Psychiatric: Present normal affect Meds Home Medications and Allergies Home Medications ?Medication ?Instructions ?Recorded ?Confirmed ?Type omeprazole 20 mg capsule,delayed 20 mg PO DAILY 11/02/23 11/02/23 History release aspirin 81 mg tablet,delayed 81 mg PO DAILY #30 tabs 11/03/23 Rx release atorvastatin 40 mg tablet 80 mg (2 x 40 mg) PO HS #30 tabs 11/03/23 Rx carvedilol 3.125 mg tablet 3.125 mg PO BID #60 tabs 11/03/23 Rx clopidogrel 75 mg tablet 75 mg PO DAILY #30 tabs 11/03/23 Rx empagliflozin 10 mg tablet 10 mg PO DAILY #30 tabs 11/03/23 Rx (Jardiance) sacubitril 24 mg-valsartan 26 mg 1 tab PO BID #60 tabs 11/03/23 Rx tablet (Entresto) spironolactone 25 mg tablet 25 mg PO DAILY #30 tabs 11/03/23 Rx New Prescriptions to Start Prescriptions: aspirin [place],Nicolas atorvastatin [place],Nicolas carvedilol [place],Nicolas clopidogrel [place],Nicolas empagliflozin [Jardiance] [place],Nicolas sacubitril-valsartan [Entresto] [place],Nicolas spironolactone [place],Nicolas Allergies Allergy/AdvReac Type Severity Reaction Status Date / Time tamsulosin Allergy Dizziness Verified 01/07/23 08:15 Assessment and Plan *Assessment and plan (1) Non-ST elevation NE (NSTEMI): Status: Acute Category: Medical Code(s): I21.4 - Non-ST elevation (NSTEMI) myocardial infarction (2) Ischemic cardiomyopathy: Status: Acute Category: Medical Code(s): I25.5 - Ischemic cardiomyopathy (3) Acute HFrEF (heart failure with reduced ejection fraction): Status: Acute Category: Medical Code(s): I50.21 - Acute systolic (congestive) heart failure (4) LV dysfunction: Status: Acute Category: Medical Code(s): I51.9 - Heart disease, unspecified (5) CAD (coronary artery disease): Status: Acute Qualifiers: Associated angina: without angina Coronary Disease-Associated Artery/Lesion type: [place] artery [place] vs. transplanted heart: [place] heart Qualified Code(s): I25.10 - Atherosclerotic heart disease of [place] coronary artery without angina pectoris Category: Medical Code(s): I25.10 - Atherosclerotic heart disease of [place] coronary artery without angina pectoris (6) Stented coronary artery: Status: Acute Category: Surgical Code(s): Z95.5 - Presence of coronary angioplasty implant and graft (7) Renal artery stenosis: Status: Acute Category: Medical Code(s): I70.1 - Atherosclerosis of renal artery (8) History of coronary artery bypass graft: Status: Chronic Category: Surgical Code(s): Z95.1 - Presence of aortocoronary bypass graft (9) Hypertension: Status: Chronic Qualifiers: Hypertension type: unspecified Qualified Code(s): I10 - Essential (primary) hypertension Category: Medical Code(s): I10 - Essential (primary) hypertension (10) Hyperlipidemia: Status: Chronic Qualifiers: Hyperlipidemia type: mixed hyperlipidemia Qualified Code(s): E78.2 - Mixed hyperlipidemia Category: Medical Code(s): E78.5 - Hyperlipidemia, unspecified Plan Plan: 1. The patient presented to the hospital with chest pain and reports that he had coughed up some bloody sputum at home. He was found to have an elevated troponin consistent with a non-STEMI. He underwent left cardiac catheterization and had a subtotal occlusion to right coronary artery and underwent 2 stents placed to the right coronary artery. He tolerated the procedure well and will be on Plavix and aspirin for dual antiplatelet therapy. He had a patent ATKINSON and Y graft to the LAD. He had an occluded nondominant circumflex artery. 2. The patient was found to have moderate to severe left renal artery stenosis and moderate right renal artery stenosis. Because of the copious amount of contrast he received during the left cardiac catheterization his renal arteries were not further investigated during the procedure. He will have a renal duplex and renal ultrasound this morning which is currently pending to see if he does have severe left renal artery stenosis and if intervention is required. Renal ultrasound was normal. Renal duplex showed no significant renal artery stenosis. No plans for renal artery stenting at this time. 3. Echocardiogram shows ejection fraction of 30%. The patient has severe LV dysfunction. He is at increased risk for sudden cardiac due to the severe LV function. Recommend a LifeVest prior to discharge home. Initially the patient refused LifeVest, but now he is agreeable and wearing the LifeVest. Will get the LifeVest ordered and will get the patient fit at home. 4. Coronary artery disease is likely present. Will continue dual antiplatelet with Plavix and aspirin as mentioned above. 5. His blood pressure is well-controlled at this time. Continue carvedilol. 6. His LDL goal is less than 55. His LDL is 92. He has been started on high- dose Lipitor. 7. Start Jardiance 10 mg daily for HFrEF. 8. Stop ramipril and start Entresto 24/26 mg p.o. twice daily for HFrEF. 9. Start spironolactone 25 mg p.o. daily for HFrEF. 10. The patient is stable for discharge home today from a cardiac standpoint. He will need to follow-up in cardiology clinic next week. The patient will need to be discharged on the following cardiac medications: Aspirin 81 mg daily, atorvastatin 80 mg p.o. nightly, carvedilol 3.125 mg p.o. twice daily, Plavix 75 mg daily, Jardiance 10 mg daily, Protonix 40 mg p.o. daily, Entresto 24/26 mg p.o. twice daily, spironolactone 25 mg p.o. daily. Thank you for the opportunity to help participate in the care of this patient. All recommendations and orders are per Dr. Espinal.
[2023-11-03] MEDS: SACUBITRIL/VALSARTAN 24-26MG TABLET 1 EACH PO (11:58)
[2023-11-03] MEDS: SPIRONOLACTONE 25MG TABLET 25 MG PO (11:58)
[2023-11-03] MEDS: EMPAGLIFLOZIN 10MG TABLET 10 MG PO (11:58)
[2023-11-03 12:00] VITALS: BP 137/77; PULSE 77; PULSE 80; RESP 16; TEMP 37.6; O2SAT 95
[2023-11-03 13:36] VITALS: TEMP 37.2
--- NOTE | 2023-11-03 15:48 | EXP.DC.SUM ---
General Admission date:: 11/02/23 Discharge date: 11/03/23 HPI HPI HPI: Mr. Vivas is an 83 year old patient of [facility] with a history of CAD, who presented to [facility] ER overnight complaining of intermittent chest pain for about 1 week. The pain was a little worse with exertion. On the day of admission he coughed up a small amount of blood. He denied leg edema, PND and orthopnea. He had a 3 vessel CABG in 1998. Hospital Course Hospital Course Hospital Course: Consult reason: chest pain Chief complaint: chest pain History of present illness: This is an 83-year-old white gentleman who presented to the emergency department complaints of chest pain. He has a past medical history of coronary artery disease with triple bypass in 1998, hypertension and hyperlipidemia. The patient states that he had been having chest pain for approximately 1 week intermittently. He states that this was in the center of his chest and radiated to the right side of his chest. This was an aching pressure sensation. It was associated with shortness of breath. He denied any nausea or diaphoresis. The patient states that he began to cough up a small amount of blood-tinged sputum so he decided to come to the emergency department. The patient was found to have an elevated troponin consistent with a non-STEMI. CTA did rule out a PE. Patient underwent left cardiac catheterization on Friday morning. 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 And he underwent stenting of the right coronary artery with 2 stents. He had a patent ATKINSON and Y graft to the LAD and diagonal artery. He had a occluded nondominant circumflex artery. The patient also had at least moderate left renal artery stenosis, possibly severe and moderate right renal artery stenosis. This morning he denies any chest pain or pressure. He denies any shortness of breath or edema. He denies any fever, chills, nausea, vomiting, diarrhea, PND orthopnea. the above as per cardiology Plan as per cartdiology as follows; 1. The patient presented to the hospital with chest pain and reports that he had coughed up some bloody sputum at home. He was found to have an elevated troponin consistent with a non-STEMI. He underwent left cardiac catheterization and had a subtotal occlusion to right coronary artery and underwent 2 stents placed to the right coronary artery. He tolerated the procedure well and will be on Plavix and aspirin for dual antiplatelet therapy. He had a patent ATKINSON and Y graft to the LAD. He had an occluded nondominant circumflex artery. 2. The patient was found to have moderate to severe left renal artery stenosis and moderate right renal artery stenosis. Because of the copious amount of contrast he received during the left cardiac catheterization his renal arteries were not further investigated during the procedure. He will have a renal duplex and renal ultrasound this morning which is currently pending to see if he does have severe left renal artery stenosis and if intervention is required. Renal ultrasound was normal. Renal duplex showed no significant renal artery stenosis. No plans for renal artery stenting at this time. 3. Echocardiogram shows ejection fraction of 30%. The patient has severe LV dysfunction. He is at increased risk for sudden cardiac due to the severe LV function. Recommend a LifeVest prior to discharge home. Initially the patient refused LifeVest, but now he is agreeable and wearing the LifeVest. Will get the LifeVest ordered and will get the patient fit at home. 4. Coronary artery disease is likely present. Will continue dual antiplatelet with Plavix and aspirin as mentioned above. 5. His blood pressure is well-controlled at this time. Continue carvedilol. 6. His LDL goal is less than 55. His LDL is 92. He has been started on high-dose Lipitor. 7. Start Jardiance 10 mg daily for HFrEF. 8. Stop ramipril and start Entresto 24/26 mg p.o. twice daily for HFrEF. 9. Start spironolactone 25 mg p.o. daily for HFrEF. 10. The patient is stable for discharge home today from a cardiac standpoint. He will need to follow-up in cardiology clinic next week. The patient will need to be discharged on the following cardiac medications: Aspirin 81 mg daily, atorvastatin 80 mg p.o. nightly, carvedilol 3.125 mg p.o. twice daily, Plavix 75 mg daily, Jardiance 10 mg daily, Protonix 40 mg p.o. daily, Entresto 24/26 mg p.o. twice daily, spironolactone 25 mg p.o. daily. Exam Data for Last 24 hours Vital signs and Labs for Last 24 Hours: Temp Pulse Resp BP Pulse Ox O2 Del Method O2 Flow Rate 99.0 F 77 16 137/77 95 Room Air 2 11/03/23 13:36 11/03/23 12:00 11/03/23 12:00 11/03/23 12:00 11/03/23 12:00 11/03/23 13:00 11/02/23 18:47 Laboratory Results - last 24 hr 11/03/23 06:14: WBC 8.0, RBC 3.43 L, Hgb 10.6 L, Hct 33.6 L, MCV 97.8 H, MCH 30.9, MCHC 31.6 L, RDW 14.1, Plt Count 183, MPV 8.9, Neut % (Auto) 62.3, Lymph % (Auto) 27.5, Sharkey % (Auto) 6.9, Eos % (Auto) 2.7, Baso % (Auto) 0.5, Neut # (Auto) 5.0, Lymph # (Auto) 2.2, Sharkey # (Auto) 0.6, Eos # (Auto) 0.2, Baso # (Auto) 0.0, Sodium 134 L, Potassium 4.2, Chloride 105, Carbon Dioxide 29, Anion Gap 4.2 L, BUN 17 D, Creatinine 1.20, Estimated Creat Clear 45, Estimated GFR 58 L, Est GFR ( Amer) 70, Glucose 91, Calcium 8.1 L, Triglycerides 67, Cholesterol 145, LDL Cholesterol Direct 92.31 L, VLDL Cholesterol 13, HDL Cholesterol 38 L, Cholesterol/HDL Ratio 3.8 H I & O for Last 24 hours: Intake & Output 11/01/23 11/02/23 11/03/23 11/04/23 11:59 11:59 11:59 11:59 Intake Total 0.925 / 0.925 1223 / 1223 270 / 270 Output Total 200 / 200 1000 / 1000 Balance -199.075 / -199.075 223 / 223 270 / 270 Weight 150 lb 144 lb 5 oz Narrative: Narrative: EKG #1 shows sinus rhythm with first-degree AV block and a rate of 90 bpm and LVH. There is also lateral ST/T wave abnormalities. EKG #2 shows sinus rhythm with first-degree AV block. Rate is [address] and T wave abnormalities. EKG #3 shows sinus rhythm with first-degree AV block and PACs. His rate is 70 bpm with old lateral and old septal ND pattern. Telemetry strips this morning shows sinus rhythm with a rate in the 80s. Constitutional Constitutional: no acute distress and average body habitus *Routine HEENT Exam Head: Present normocephalic and atraumatic ENT: Present mucous membranes moist *Routine Neck Exam Neck: Present supple, full ROM and normal carotid upstroke; Absent JVD, carotid bruit or lymphadenopathy *Routine Respiratory Exam Respiratory: Present CTA bilaterally, normal respiratory effort, able to speak in complete sentences and symmetric chest movement *Routine Cardiovascular Exam Cardiovascular: Present RRR, Normal S1 and Normal S2; Absent murmur or gallop *Routine Abdominal Exam Abdominal: Present soft and normoactive bowel sounds; Absent tenderness, distended or organomegaly *Routine Extremities Exam Extremities: Present full ROM, pulses intact and normal capillary refill; Absent cyanosis, clubbing or edema *Routine Skin Exam Skin: Present intact and warm; Absent erythema *Routine Neurological Exam Neurological: Present alert, oriented X3 and CN II-XII intact; Absent sensory deficit or motor deficit Routine Psychiatric Exam Psychiatric: Present normal affect Results Data Completed and Pending Completed studies during hospitalization [Text1]: 11/03/2023 Renal artery Duplex IMPRESSION: No evidence of significant renal artery stenosis. CT angiogram or postcontrast MR angiogram would be more sensitive for evaluation of possible renal artery stenosis. 11/03/2023 ECHO Conclusion Moderate to severe reduction in LV systolic function (LVEF 30%). Near akinesis of the septal, anteroseptal, and inferoseptal LV hansen. Mild RV dilation with mild reduction in RV function. Biatrial dilation. Mild TR. 11/03/2023 Renal US IMPRESSION: Normal renal ultrasound. Labs on day of discharge: Labs from last 24 hours 11/03/23 06:14 WBC 8.0 RBC 3.43 L Hgb 10.6 L Hct 33.6 L MCV 97.8 H MCH 30.9 MCHC 31.6 L RDW 14.1 Plt Count 183 MPV 8.9 Neut % (Auto) 62.3 Lymph % (Auto) 27.5 Sharkey % (Auto) 6.9 Eos % (Auto) 2.7 Baso % (Auto) 0.5 Neut # (Auto) 5.0 Lymph # (Auto) 2.2 Sharkey # (Auto) 0.6 Eos # (Auto) 0.2 Baso # (Auto) 0.0 Sodium 134 L Potassium 4.2 Chloride 105 Carbon Dioxide 29 Anion Gap 4.2 L BUN 17 D Creatinine 1.20 Estimated Creat Clear 45 Estimated GFR 58 L Est GFR ( Amer) 70 Glucose 91 Calcium 8.1 L Triglycerides 67 Cholesterol 145 LDL Cholesterol Direct 92.31 L VLDL Cholesterol 13 HDL Cholesterol 38 L Cholesterol/HDL Ratio 3.8 H DS: Diagnosis Discharge Diagnosis (1) Non-ST elevation ND (NSTEMI): Status: Acute Code(s): I21.4 - Non-ST elevation (NSTEMI) myocardial infarction (2) Ischemic cardiomyopathy: Status: Acute Code(s): I25.5 - Ischemic cardiomyopathy (3) Acute HFrEF (heart failure with reduced ejection fraction): Status: Acute Code(s): I50.21 - Acute systolic (congestive) heart failure (4) LV dysfunction: Status: Acute Code(s): I51.9 - Heart disease, unspecified (5) CAD (coronary artery disease): Status: Acute Code(s): I25.10 - Atherosclerotic heart disease of [place] coronary artery without angina pectoris Qualifiers: Coronary Disease-Associated Artery/Lesion type: [place] artery [place] vs. transplanted heart: [place] heart Associated angina: without angina Qualified Code(s): I25.10 - Atherosclerotic heart disease of [place] coronary artery without angina pectoris (6) Stented coronary artery: Status: Acute Code(s): Z95.5 - Presence of coronary angioplasty implant and graft (7) Renal artery stenosis: Status: Acute Code(s): I70.1 - Atherosclerosis of renal artery (8) History of coronary artery bypass graft: Status: Chronic Code(s): Z95.1 - Presence of aortocoronary bypass graft (9) Hypertension: Status: Chronic Code(s): I10 - Essential (primary) hypertension Qualifiers: Hypertension type: unspecified Qualified Code(s): I10 - Essential (primary) hypertension (10) Hyperlipidemia: Status: Chronic Code(s): E78.5 - Hyperlipidemia, unspecified Qualifiers: Hyperlipidemia type: mixed hyperlipidemia Qualified Code(s): E78.2 - Mixed hyperlipidemia Meds Home Medications and Allergies Home Medications ?Medication ?Instructions ?Recorded ?Confirmed ?Type omeprazole 20 mg capsule,delayed 20 mg PO DAILY 11/02/23 11/02/23 History release aspirin 81 mg tablet,delayed 81 mg PO DAILY #30 tabs 11/03/23 Rx release atorvastatin 40 mg tablet 80 mg (2 x 40 mg) PO HS #30 tabs 11/03/23 Rx carvedilol 3.125 mg tablet 3.125 mg PO BID #60 tabs 11/03/23 Rx clopidogrel 75 mg tablet 75 mg PO DAILY #30 tabs 11/03/23 Rx empagliflozin 10 mg tablet 10 mg PO DAILY #30 tabs 11/03/23 Rx (Jardiance) sacubitril 24 mg-valsartan 26 mg 1 tab PO BID #60 tabs 11/03/23 Rx tablet (Entresto) spironolactone 25 mg tablet 25 mg PO DAILY #30 tabs 11/03/23 Rx New Prescriptions to Start Prescriptions: aspirin [place],Nicolas atorvastatin [place],Nicolas carvedilol [place],Nicolas clopidogrel [place],Nicolas empagliflozin [Jardiance] [place],Nicolas sacubitril-valsartan [Entresto] [place],Nicolas spironolactone [place],Nicolas Allergies Allergy/AdvReac Type Severity Reaction Status Date / Time tamsulosin Allergy Dizziness Verified 01/07/23 08:15 Discharge Plan Disposition Patient Disposition: Home, Self-Care Condition: Fair Discharge Order Discharge Orders: Discharge Order (Routine); Ordered 11/03/23 Ordered By: Nicolas Sharif Follow up Plan Follow up with: Yelena Ybarra APRN [Nurse Practitioner] - 11/10/23 2:45 pm Nicolas Sharif MD [Primary Care Provider] - 11/18/23 10:15 am Prescriptions/Medication Reconciliation: New atorvastatin 40 mg Tablet 80 mg PO HS Qty: 30 0RF clopidogrel 75 mg Tablet 75 mg PO DAILY Qty: 30 0RF aspirin 81 mg Tablet,Delayed Release (Dr/Ec) 81 mg PO DAILY Qty: 30 0RF spironolactone 25 mg Tablet 25 mg PO DAILY Qty: 30 0RF carvedilol 3.125 mg Tablet 3.125 mg PO BID Qty: 60 0RF Jardiance 10 mg Tablet 10 mg PO DAILY Qty: 30 0RF Entresto 24-26 mg Tablet 1 tab PO BID Qty: 60 0RF Continued omeprazole 20 mg capsule,delayed release(DR/EC) 20 mg PO DAILY Discontinued aspirin 325 MG tablet 325 mg PO DAILY ramipril 10 mg capsule 10 mg PO BID Problem Reconciliation Problems Reviewed?: Yes Patient Discharge Instructions ACTIVITY: Limited activity DIET: cardiac Patient Instructions: DI for Angina, DI for Cardiac Catheterization, DI for Surgical Site Infection Print Language: Kinyarwanda Providers Primary Care Provider: Nicolas Sharif Admit Provider: Nicolas Sharif Attending Provider: Nicolas Sharif
--- NOTE | 2023-11-04 12:58 | CARE MANAGER ---
Contacted patient related to hospital discharge. He is feeling better. Denies questions or concerns. He is aware of follow up appointments and aware of medication changes.
== END 2023-11-03 14:23 | disposition home or self-care (01) | DRG 322 ==
LOC: ER 03:37 → 2ND 04:57
PROVIDERS: Internal Medicine; Nurse Practitioner Family; Admitting Provider Family Medicine; Emergency Provider Emergency Medicine; PCP Family Medicine; Visit Provider Family Medicine
PROC: 027035Z Dilation of Coronary Artery, One Artery with Two Drug-eluting Intraluminal Devices, Percutaneous Approach (ICD-10-PCS; principal; 2023-11-02 05:00)
PROC: 027035Z Dilation of Coronary Artery, One Artery with Two Drug-eluting Intraluminal Devices, Percutaneous Approach (ICD-10-PCS; 2023-11-02 05:00)
DX: I21.4 Non-ST elevation (NSTEMI) myocardial infarction (principal); I44.30 Unspecified atrioventricular block; I25.10 Atherosclerotic heart disease of native coronary artery without angina pectoris; E78.5 Hyperlipidemia, unspecified; I10 Essential (primary) hypertension; K21.9 Gastro-esophageal reflux disease without esophagitis; I70.1 Atherosclerosis of renal artery; I25.5 Ischemic cardiomyopathy; Z95.1 Presence of aortocoronary bypass graft; I12.9 Hypertensive chronic kidney disease with stage 1 through stage 4 chronic kidney disease, or unspecified chronic kidney disease; N18.9 Chronic kidney disease, unspecified
CPT/HCPCS: 36252; 36415; 71046; 71275; 76770; 80048; 80053; 80061; 84484; 85025; 85347; 85378; 92928; 93005; 93306; 93458; 93976; 94760; 99152; 99153; 99291; C1725; C1760; C1769; C1874; C1894; C9600; J1200; J1644; J2250; J2270; J7120; Q9967

== ENCOUNTER 2023-11-13 11:29 | Emergency (ER) | payer MEDICARE, SELFPAY ==
[2023-11-13] VITALS (11 sets, daily range): BP systolic 99–152; BP diastolic 54–81; PULSE 54–70; RESP 10–22; TEMP 37; O2SAT 97–100; BMI 23.2
--- NOTE | 2023-11-13 11:37 | ECG_ITS ---
APPROVED REPORT Exam: Resting ECG HR:59 bpm ECG Measurements Heart Rate 59 AXES SD 228 P 56 QRSd 90 QRS 27 QT 438 T -44 QTc 436 Conclusion SINUS BRADYCARDIA WITH FIRST DEGREE AV BLOCK WITH FREQUENT VENTRICULAR PREMATURE COMPLEXES SEPTAL MYOCARDIAL INFARCTION , PROBABLY OLD [40+ ms Q WAVE IN V1/V2] MODERATE T-WAVE ABNORMALITY, CONSIDER INFERIOR ISCHEMIA [-0.1+ mV T-WAVE IN II/aVF] ABNORMAL ECG Electronically signed by : AP CASTILLO, 11/18/2023 18:25:44
--- NOTE | 2023-11-13 11:53 | XR_ITS ---
FINAL REPORT CLINICAL HISTORY: AMS, RECENT DE COMPARISON: 07/06/2021 FINDINGS: The heart size is mildly enlarged. Sternotomy wires are present. Chronic changes are noted in the lung bases. There is no focal infiltrate or edema. There are no pleural effusions. There is no pneumothorax. There is no osseous abnormality. IMPRESSION: No acute cardiopulmonary process Reviewed, Interpreted and Dictated by Stef Rowe MD Transcribed by Irina Lynn Authenticated and [facility]
[2023-11-13 11:58] LABS: MANUAL DIFFERENTIAL MANUAL DIFFERENTIAL (MANUAL DIFF)
[2023-11-13 12:07] LABS: Anion Gap 7.5 mEq/L (5-15); Basophils # 0.1 K/mm3 (0-0.2); Basophils % 0.9 % (0.1-2.0); Blood Urea Nitrogen 19 mg/dl (9-20); Calcium 8.4 mg/dl (8.4-10.2); Carbon Dioxide 26 mmol/L (22.0-30.0); Chloride 107 mmol/L (98-107); Eosinophils # 0.5 K/mm3 (0.0-0.4); Eosinophils % 6.6 % (0.1-12.0); Estimated Glomerular Filt Rate 48 ml/min (>60); GFR (African American) 59 ML/MIN (>60); Glucose 116 mg/dl (74-100); Hematocrit 33.5 % (42.0-52.0); Hemoglobin 10.9 g/dL (14.1-18.0); Lymphocytes % 24.6 % (10-50); Mean Corpuscular HGB Conc 32.6 g/dL (31.8-35.4); Mean Corpuscular Hemoglobin 31.5 pg (27.0-31.2); Mean Corpuscular Volume 96.5 fl (80-94); Mean Platelet Volume 8.6 fl (7.4-10.4); Monocytes # 0.6 K/mm3 (0.1-1.0); Monocytes % 7.9 % (1.7-9.3); Neutrophils # 4.9 K/mm3 (1.8-7.8); Platelet Count 218 K/mm3 (142-424); Potassium 3.5 mmoL/L (3.5-5.1); Red Blood Count 3.47 M/mm3 (4.60-6.20); Red Cell Distribution Width 13.8 % (11.5-17.5); Sodium 137 mmol/L (136-145); White Blood Count 8.1 K/mm3 (4.8-10.8)
--- NOTE | 2023-11-13 12:11 | ED_ITS ---
Discharge Plan Disposition Chief Complaint: Altered Mental Status Prescriptions Prescriptions: No Action clopidogrel 75 mg tablet 75 mg PO DAILY Qty: 90 3RF carvedilol 3.125 mg tablet 3.125 mg PO BID Qty: 60 5RF atorvastatin 80 mg tablet 80 mg PO DAILY Qty: 90 3RF aspirin 81 mg tablet,delayed release (DR/EC) 81 mg PO DAILY Qty: 90 3RF Jardiance 10 mg tablet 10 mg PO DAILY Qty: 90 2RF spironolactone 25 mg tablet 25 mg PO DAILY Qty: 90 3RF Entresto 49-51 mg tablet 1 tab PO BID Qty: 60 5RF omeprazole 20 mg capsule,delayed release(DR/EC) 20 mg PO DAILY Qty: 90 3RF Jardiance 10 mg tablet 0RF Referrals Follow up/Referrals: Nicolas Sharif MD [Primary Care Provider] - See instructions Clinical Impressions Clinical Impression: Heat exposure, VICENTE (acute kidney injury) Instructions Patient Instructions: DI for Altered Mental Status Print Language Print Language: Guamanian Discharge ED Provider: Dorian Solis General Adult HPI General Chief complaint: Altered Mental Status Stated complaint: Altered Mental Status Time Seen by Provider: 11/13/23 11:31 History of Present Illness HPI narrative: This is a an 83-year-old male with a past medical history of coronary artery disease status post open heart surgery, 2 coronary stents 1 week ago after GA presenting to the emergency department for altered mental status. He is here with his who helps provide details of the history. Patient arrives by EMS. She notes that the patient was sitting out side on the front porch for a long period this morning when she checked on him, he seemed to be confused. She states that this has happened before when he sits out in the sun for long periods of time and believes that he cooked himself. She notes that he had a heart attack 1 week ago and had 2 stents put in and currently wears a LifeVest. He has not been complaining of any chest pain, shortness of breath and is otherwise been in his normal state of health. Patient is currently oriented to self and location but not year. He denies any chest pain, shortness of breath and has no complaints at this time. EMS noted that he was mildly hypotensive with them in round and received a small amount of IV fluids prior to arrival and had improvement in his blood pressure afterward. They note that his heart rate has been in the 50s to 60s throughout their transport. Related Data Previous Rx's ?Medication ?Instructions ?Recorded aspirin 81 mg tablet,delayed 81 mg PO DAILY #90 tabs 11/10/23 release atorvastatin 80 mg tablet 80 mg PO DAILY #90 tabs 11/10/23 carvedilol 3.125 mg tablet 3.125 mg PO BID #60 tabs 11/10/23 clopidogrel 75 mg tablet 75 mg PO DAILY #90 tabs 11/10/23 empagliflozin 10 mg tablet 10 mg PO DAILY #90 tabs 11/10/23 (Jardiance) omeprazole 20 mg capsule,delayed 20 mg PO DAILY #90 caps 11/10/23 release sacubitril 49 mg-valsartan 51 mg 1 tab PO BID #60 tabs 11/10/23 tablet (Entresto) spironolactone 25 mg tablet 25 mg PO DAILY #90 tabs 11/10/23 Allergies Allergy/AdvReac Type Severity Reaction Status Date / Time tamsulosin Allergy Dizziness Verified 11/10/23 15:31 [facility] Disclaimer: The information contained in this section may have been updated after the patient was seen, as this information can be updated by other users. Medical History (Updated 11/13/23 @ 15:48 by Braulio Verdin MD) E. coli colitis C. difficile colitis Colitis LV dysfunction Acute HFrEF (heart failure with reduced ejection fraction) Ischemic cardiomyopathy Renal artery stenosis Cervical disc herniation Osteoarthritis Kidney stones Lumbar disc disease Lumbar facet arthropathy Lumbar compression fracture Chronic low back pain Closed left hip fracture Hyperlipidemia Elevated PSA BPH (benign prostatic hyperplasia) Hypertension Carotid bruit GERD (gastroesophageal reflux disease) CAD (coronary artery disease) Surgical History (Updated 11/10/23 @ 15:33 by Rox Tam) History of cardiac cath Stented coronary artery History of coronary artery bypass graft Status post hip surgery H/O left inguinal hernia repair History of neck surgery History of coronary artery bypass graft Family History (Updated 11/02/23 @ 07:36 by Meghan Perez RN) Other Family history of cancer Family history of kidney stone No significant family history Social History (Updated 11/02/23 @ 07:38 by Meghan Perez RN) Smoking Status: Never smoker alcohol intake: never substance use type: denies use current occupational status: retired Travel in the last 8 weeks: None household members: spouse housing: house current occupation: [employer] current occupational exposures/hazards: Yes ([employer]) caffeine: Yes ROS Obtained: Yes All systems reviewed & no additional complaints except as documented Physical Exam General General appearance: alert and in no apparent distress Head Head exam: atraumatic Eye Eye exam: Present normal appearance ENT ENT exam: Present normal external ear exam Neck Neck exam: Present normal inspection Chest Chest inspection: Present normal inspection, symmetric chest wall rise and other (LifeVest in place); Absent tenderness Respiratory Respiratory exam: Present normal lung sounds bilaterally; Absent respiratory distress Cardiovascular Cardiovascular exam: Present regular rate, bradycardia (Heart rate in the 50s to 60s), irregular rhythm and normal heart sounds Abdominal Exam Abdominal exam: Present soft; Absent distention or tenderness Extremities Exam Extremities exam: Present normal inspection; Absent edema Back Exam Back exam: Present normal inspection Neurological Exam Neurological exam: Present alert and other; Absent oriented X3 (Oriented to self and location but not date/year) Psychiatric Psychiatric exam: Present other (Unable to fully assess secondary to mental status) Skin Skin exam: Present warm and dry; Absent diaphoresis Medical Decision Making Medical Records Medical records reviewed: Yes I reviewed the patient's medical records. MR Comment: Patient had an office visit with Dr. Sharif on 11/10/2023. This is a follow-up appointment after patient's non-STEMI status post left heart catheterization was found to have acute heart failure with reduced ejection fraction and was started on GDMT. Patient was noted to have a critical limb subtotal occlusion of the right coronary artery with successful stenting reducing the critical disease to 0%. Patient was started on Plavix and aspirin, continued high intensity statin, plan to have repeat echocardiogram Kristian Inquiry Pt receiving controlled substance: No Vital Signs: 11/13/23 11:30 11/13/23 12:07 11/13/23 12:30 Temperature 98.6 F Temperature Source Oral Pulse Rate 54 L 62 Pulse Rate [Right] 57 L Respiratory Rate 19 14 Blood Pressure 99/54 L 134/61 Blood Pressure [Left Arm] 125/54 L Blood Pressure Mean 68 Blood Pressure Mean [Left Arm] 77 Blood Pressure Source [Left Arm] Automatic Cuff 02 Sat by Pulse Oximetry 99 100 99 Oxygen Delivery Method Room Air Room Air 11/13/23 13:01 11/13/23 13:30 11/13/23 14:00 Temperature Temperature Source Pulse Rate 63 66 62 Pulse Rate [Right] Respiratory Rate 14 12 22 Blood Pressure 139/54 L 129/62 137/81 Blood Pressure [Left Arm] Blood Pressure Mean 84 87 Blood Pressure Mean [Left Arm] Blood Pressure Source [Left Arm] 02 Sat by Pulse Oximetry 100 79 L 99 Oxygen Delivery Method 11/13/23 14:30 11/13/23 15:00 Temperature Temperature Source Pulse Rate 67 70 Pulse Rate [Right] Respiratory Rate 10 L 16 Blood Pressure 142/60 H 140/61 Blood Pressure [Left Arm] Blood Pressure Mean 87 87 Blood Pressure Mean [Left Arm] Blood Pressure Source [Left Arm] 02 Sat by Pulse Oximetry 99 99 Oxygen Delivery Method Lab Data Lab Results 11/13/23 11:33: WBC 8.1, RBC 3.47 L, Hgb 10.9 L, Hct 33.5 L, MCV 96.5 H, MCH 31.5 H, MCHC 32.6, RDW 13.8, Plt Count 218, MPV 8.6, Neut % (Auto) 60.0, Lymph % (Auto) 24.6, [place] % (Auto) 7.9, Eos % (Auto) 6.6, Baso % (Auto) 0.9, Neut # (Auto) 4.9, Lymph # (Auto) 2.0, [place] # (Auto) 0.6, Eos # (Auto) 0.5 H, Baso # (Auto) 0.1, Total Counted 100, Neutrophils % (Manual) 58, Lymphocytes % (Manual) 33, Monocytes % (Manual) 6, Eosinophils % (Manual) 3, Platelet Estimate Normal, Hypochromasia 1+, Sodium 137, Potassium 3.5, Chloride 107, Carbon Dioxide 26, Anion Gap 7.5, BUN 19, Creatinine 1.40 H, Estimated GFR 48 L, Est GFR ( Amer) 59, Glucose 116 H, Calcium 8.4, Troponin I 0.17 H 11/13/23 13:12: VBG pH 7.40, VBG pCO2 37.1, VBG pO2 63.0 H, VBG HCO3 22.6 L, VBG Total CO2 23.8, VBG O2 Saturation 92.4 H, VBG Base Excess -2.1, VBG Lactic Acid 1.8 11/13/23 14:08: Troponin I 0.15 H 11/13/23 11:33 11/13/23 11:33 Orders (Tests/Meds): ED MEDICATIONS Discontinued Medications Generic Name Dose Route Start Last Admin Trade Name Janette PRKristy Reason Stop Dose Admin Lactated Ringer's 500 mls @ 999 mls/hr 11/13/23 12:34 11/13/23 13:28 Lactated Ringer's 500ml IV 11/13/23 13:04 999 mls/hr .Q31M ONE Administration ORDERS Category Date Time Status CXR --portable [XR chest portable] Stat Exams 11/13/23 11:53 Completed BMP [Basic Metabolic Panel] Stat Lab 11/13/23 11:33 Completed CBC Man Diff [Complete Blood Count Man Dif] Stat Lab 11/13/23 11:33 Completed Troponin I Q3H Lab 11/13/23 14:08 Completed Troponin I Q3H Lab 11/13/23 18:00 Ordered Troponin I Stat Lab 11/13/23 11:33 Completed Urinalysis and Microscopic Stat Lab 11/13/23 12:33 Ordered VBG [Venous Blood Gas] Stat RT 11/13/23 13:12 Completed ECG Data Tracing #1: I reviewed this ECG and interpreted as documented below: Sinus bradycardia with first-degree AV block and frequent PVCs. No ST elevations or depressions. QTc interval of 436. Largely unchanged from previous EKG on 11/01 ECG initial impression date: 11/13/23 ECG initial impression time: 11:42 Medical Decision Narrative: This is an 83-year-old male with a past medical history significant for coronary artery disease status post non-STEMI and cardiac stenting 1 week ago currently wearing a LifeVest who presents to the emergency department for complaints of altered mental status via EMS. Patient was reportedly sitting on the porch and that he did when he seemed to get confused. His notes that this has happened several times before when he sits out in the hot sun for long periods of time and believes that he got dehydrated. Patient was reportedly hypotensive en route that improved with a small amount of IV fluids. Heart rate in the 50s to 60s and round. Patient has never complained of any chest pain or shortness of breath and was initially alert and oriented to self and location but not year. Patient was given 500 cc fluid bolus and lab work was obtained. EKG was largely unchanged from previous EKG on 11/01. See interpretation above. Throughout his ED stay, patient's mental status returned to baseline. Workup was significant for initial troponin of 0.17 and repeat troponin 0.15. Mild VICENTE with creatinine of 1.40. Workup otherwise unremarkable and nonactionable. At this time, the patient's urine studies are pending. The patient's care was transferred to the oncoming physician, Dr. Solis, pending completion of his urinalysis. Is felt that the patient would likely be appropriate for discharge home once his urine results, however the patient's ultimate disposition is to be determined by the oncoming physician. See additional details below. Critical Care Critical Care Time Critical Care Time: No
[2023-11-13 12:19] LABS: Troponin I 0.17 ng/ml (0.00-0.034)
[2023-11-13 12:47] LABS: Eosinophils % 3 % (0-3); Lymphocytes % 33 % (10-50); Monocytes % 6 % (2-9); Neutrophils % 58 % (42-76); Total Cells Counted 100
[2023-11-13 12:49] LABS: Hypochromasia 1+; Platelet Estimate Normal
[2023-11-13] MEDS: RINGERS SOLUTION,LACTATED 500 ML 999 ML IV (13:28)
[2023-11-13 13:35] LABS: Lactate Venous 1.8 mmol/L (0.4-2.0); VBG Base Excess -2.1 mmol/L (-2.4-2.3); VBG HCO3 22.6 mmol/L (23-30); VBG Oxygen Saturation 92.4 % (50-70); VBG PCO2 37.1 mmol/L (35-51); VBG Total CO2 23.8 mmol/L (23-27)
[2023-11-13 14:42] LABS: Troponin I 0.15 ng/ml (0.00-0.034)
[2023-11-13 15:41] LABS: Microscopic, Urine URINE MICROSCOPIC (MICROSCOPIC)
[2023-11-13 15:44] LABS: Appearance,Urine CLEAR (Clear); Bilirubin,Urine Negative (Negative); Blood, Urine 3+ (Negative); Color,Urine YELLOW (Yellow); Glucose,Urine (UA) 3+ (Negative); Ketones,Urine Negative (Negative); Leukocyte Esterase,Urine Negative (Negative); Nitrate,Urine Negative (Negative); Protein,Urine 2+ (Negative); Specific Gravity, Urine 1.025 (1.005-1.030); Urobilinogen,Urine 0.2 EU/dl (0.2)
[2023-11-13 16:02] LABS: WBC,Urine Occasional #/hpf (0-3)
== END 2023-11-13 16:37 | disposition home or self-care (01) ==
PROVIDERS: Student in an Organized Health Care Education/Training Program; Emergency Provider Emergency Medicine; PCP Family Medicine
DX: R41.82 Altered mental status, unspecified (principal); N17.9 Acute kidney failure, unspecified; I11.0 Hypertensive heart disease with heart failure; I50.20 Unspecified systolic (congestive) heart failure; I25.5 Ischemic cardiomyopathy; I25.10 Atherosclerotic heart disease of native coronary artery without angina pectoris; E78.5 Hyperlipidemia, unspecified; N40.0 Benign prostatic hyperplasia without lower urinary tract symptoms; R00.1 Bradycardia, unspecified; I44.0 Atrioventricular block, first degree
CPT/HCPCS: 71045; 80048; 81001; 82803; 84484; 85007; 85014; 85018; 85048; 85049; 93005; 99285; J7120

== ENCOUNTER 2023-12-03 19:49 | Emergency (ER) | payer MEDICARE, SELFPAY ==
[2023-12-03 19:51] VITALS: BP 176/87; PULSE 82; RESP 16; O2SAT 100; BMI 22.1
[2023-12-03 20:00] VITALS: BP 186/89; PULSE 84; O2SAT 100
--- NOTE | 2023-12-03 20:04 | CT_ITS ---
PROCEDURE INFORMATION: Exam: CT Head Without Contrast Exam date and time: 12/03/2023 8:34 PM Age: 83 years old Clinical indication: Stroke-like symptoms; Right facial droop; Additional info: R facial droop, R leg weakness with foot drop TECHNIQUE: Imaging protocol: Computed tomography of the head without contrast. Radiation optimization: All CT scans at this facility use at least one of these dose optimization techniques: automated exposure control; mA and/or kV adjustment per patient size (includes targeted exams where dose is matched to clinical indication); or iterative reconstruction. Other technique: STROKE PROTOCOL was implemented. COMPARISON: CT HEAD/BRAIN WO CON 08/04/2022 4:46 PM FINDINGS: Brain: Intracranial vascular calcification. Decreased attenuation of the supratentorial white matter is likely secondary to chronic microvascular ischemia. No acute intracranial hemorrhage. There are chronic lacunar infarcts at the basal ganglia and thalami. There is low density at the left basal ganglia extending to the left perez radiata measuring 1.6 cm. Cerebral ventricles: Ventricular and subarachnoid spaces are age appropriate. Paranasal sinuses: Visualized sinuses are unremarkable. No fluid levels. Mastoid air cells: Opacification of the left mastoid air cells and left middle ear cavity. Bones: Unremarkable. No acute fracture. Soft tissues: Unremarkable. IMPRESSION: 1. Low density at the left basal ganglia extending to left perez radiata measuring 1.6 cm concerning for acute or subacute infarct. 2. No acute intracranial hemorrhage. ASSESSMENT: ASPECTS ([place] Stroke Program Early CT Score) is 8.
--- NOTE | 2023-12-03 20:04 | CT_ITS ---
PROCEDURE INFORMATION: Exam: CTA Neck With Contrast Exam date and time: 12/03/2023 8:37 PM Age: 83 years old Clinical indication: Stroke-like symptoms; Right facial droop; Additional info: R facial droop, R leg weakness with foot drop TECHNIQUE: Imaging protocol: Computed tomographic angiography of the neck with contrast. Exam focused on the cervical segments of the vasculature. 3D rendering (Not supervised by radiologist): MIP and/or 3D reconstructed images were created by the technologist. Radiation optimization: All CT scans at this facility use at least one of these dose optimization techniques: automated exposure control; mA and/or kV adjustment per patient size (includes targeted exams where dose is matched to clinical indication); or iterative reconstruction. Contrast material: ISOVUE; Contrast volume: 80 ml; Contrast route: INTRAVENOUS (IV); COMPARISON: CT ANGIO NECK 07/20/2021 1:15 PM FINDINGS: Right common carotid artery: Calcification involving the right common carotid artery without hemodynamically significant stenosis. Right internal carotid artery: Calcification atheromatous irregularity at the proximal right internal carotid artery. Stenosis measures 60%. Right external carotid artery: Severe stenosis involving the origin of the right external carotid artery. Left common carotid artery: Calcification atheromatous irregularity involving the left common carotid artery. No hemodynamically significant stenosis. Left internal carotid artery: Calcification and plaquing at the proximal left internal carotid artery. Stenosis measures less than 50%. Left external carotid artery: No occlusion or stenosis of the origin. Right vertebral artery: Mild right vertebral artery V2 stenosis. Moderate stenosis of the proximal right vertebral artery. Left vertebral artery: Severe stenosis of the proximal left vertebral artery. Aorta: Aortic calcification. Soft tissues: Normal. No significant soft tissue swelling. Bones/joints: Degenerative change involving the spine. IMPRESSION: 1. 60% stenosis of the proximal right ICA. 2. Severe stenosis of the proximal left vertebral artery. 3. Moderate stenosis of the proximal right vertebral artery. 4. Severe stenosis involving the origin of the right external carotid artery. 5. Additional findings as above. REFERENCES: NASCET CRITERIA. The degree of stenosis in the cervical segment of the internal carotid artery is based on NASCET criteria. Normal is no stenosis. Mild is less than 50% stenosis. Moderate is 50-69% stenosis. Severe is 70% to 99% stenosis. Total occlusion is no detectable patent lumen.
--- NOTE | 2023-12-03 20:04 | CT_ITS ---
PROCEDURE INFORMATION: Exam: CTA Head With Contrast, Arteriography Exam date and time: 12/03/2023 8:37 PM Age: 83 years old Clinical indication: Stroke-like symptoms; Right facial droop; Additional info: R facial droop, R leg weakness with foot drop TECHNIQUE: Imaging protocol: Computed tomographic angiography of the head with contrast. Exam focused on the arteries. 3D rendering (Not supervised by radiologist): MIP and/or 3D reconstructed images were created by the technologist. Radiation optimization: All CT scans at this facility use at least one of these dose optimization techniques: automated exposure control; mA and/or kV adjustment per patient size (includes targeted exams where dose is matched to clinical indication); or iterative reconstruction. Contrast material: ISOVUE; Contrast volume: 80 ml; Contrast route: INTRAVENOUS (IV); COMPARISON: CT HEAD/BRAIN WO CON 12/03/2023 8:34 PM FINDINGS: ANTERIOR CIRCULATION: Right internal carotid artery: Calcification involving the right carotid siphon without hemodynamically significant stenosis. Right middle cerebral artery: No occlusion or significant stenosis. No aneurysm. Right anterior cerebral artery: No occlusion or significant stenosis. No aneurysm. Left internal carotid artery: Calcification involving the left carotid siphon without hemodynamically significant stenosis. Left middle cerebral artery: No occlusion or significant stenosis. No aneurysm. Left anterior cerebral artery: No occlusion or significant stenosis. No aneurysm. POSTERIOR CIRCULATION: Right vertebral artery: No occlusion or significant stenosis. No aneurysm. Left vertebral artery: No occlusion or significant stenosis. No aneurysm. Basilar artery: No occlusion or significant stenosis. No aneurysm. Right posterior cerebral artery: No occlusion or significant stenosis. No aneurysm. Left posterior cerebral artery: Moderate to severe stenosis involving the left ABSTRACT CHECKER P1 segment. [id number] left ABSTRACT CHECKER P2 stenosis. IMPRESSION: 1. Moderate to severe stenosis involving the proximal left ABSTRACT CHECKER P1 segment. 2. [id number] left ABSTRACT CHECKER P2 stenosis. 3. No large vessel occlusion.
--- NOTE | 2023-12-03 20:04 | XR_ITS ---
PROCEDURE INFORMATION: Exam: XR Chest Exam date and time: 12/03/2023 8:23 PM Age: 83 years old Clinical indication: Pain; Chest pressure; Additional info: R facial droop, R leg weakness with foot drop TECHNIQUE: Imaging protocol: Radiologic exam of the chest. Views: 1 view. COMPARISON: CR XR CHEST PORTABLE 11/13/2023 11:51 AM FINDINGS: Tubes, catheters and devices: There are electronic devices projecting over the chest and upper abdomen. Lungs: No consolidation. Pleural spaces: Unremarkable. No pleural effusion. No pneumothorax. Heart/Mediastinum: Stable cardiac silhouette. Bones/joints: Previous median sternotomy. Osteopenia. Degenerative change involving the shoulders and spine. IMPRESSION: No acute process.
[2023-12-03] MEDS: RINGERS SOLUTION,LACTATED 500 ML 999 ML IV (20:18)
--- NOTE | 2023-12-03 20:22 | ECG_ITS ---
APPROVED REPORT Exam: Resting ECG HR:83 bpm ECG Measurements Heart Rate 83 AXES IN 262 P 88 QRSd 82 QRS 48 QT 354 T 102 QTc 394 Conclusion SINUS RHYTHM WITH FIRST DEGREE AV BLOCK WITH OCCASIONAL VENTRICULAR PREMATURE COMPLEXES SEPTAL MYOCARDIAL INFARCTION , PROBABLY OLD [40+ ms Q WAVE IN V1/V2] ABNORMAL ECG Electronically signed by : JOHN EM, 12/03/2023 22:20:34
--- NOTE | 2023-12-03 20:27 | PC.NURSE ---
Pt to CT at this time
--- NOTE | 2023-12-03 20:29 | HMH.EDGENADL ---
Discharge Plan Disposition Patient Disposition: Xfer Short-Term Hosp Condition: Good Prescriptions Prescriptions: No Action clopidogrel 75 mg tablet 75 mg PO DAILY Qty: 90 3RF carvedilol 3.125 mg tablet 3.125 mg PO BID Qty: 60 5RF atorvastatin 80 mg tablet 80 mg PO DAILY Qty: 90 3RF aspirin 81 mg tablet,delayed release (DR/EC) 81 mg PO DAILY Qty: 90 3RF Jardiance 10 mg tablet 10 mg PO DAILY Qty: 90 2RF spironolactone 25 mg tablet 25 mg PO DAILY Qty: 90 3RF omeprazole 20 mg capsule,delayed release(DR/EC) 20 mg PO DAILY Qty: 90 3RF Entresto 24-26 mg tablet 1 tab PO BID Qty: 60 2RF Jardiance 10 mg tablet 0RF Referrals Follow up/Referrals: Nicolas Sharif MD [Primary Care Provider] - See instructions Clinical Impressions Clinical Impression: Basal ganglia stroke, Elevated troponin, Stenosis of intracranial vessel Stand Alone Forms Stand Alone Forms: Transfer Record - ED Print Language Print Language: Argentine Discharge ED Provider: Cathy Limon General Adult HPI General Chief complaint: Weakness Stated complaint: weakness,no appiitite Time Seen by Provider: 12/03/23 20:04 Mode of Arrival: Wheelchair Source of Information: Patient, Spouse and Relative Limitations: No Limitations Description of Symptoms (Recalled from ER Triage Doc. by RN): Patient presents to ED with c/o of increased weakness and decreased appetite that started this morning. Family reports patient had a heart attack with stent placement 2 weeks ago by and family reports patient has not been the same since. Son states patient is unable to ambulate by himself, is having to feed patient, and he is incontient of bowel and bladder. History of Present Illness HPI narrative: This patient is an 83-year-old male with a history of CAD with recent non-STEMI status post stenting, CHF with an EF of 30% (LifeVest in place), renal artery stenosis, hypertension, hyperlipidemia presenting to the emergency department for evaluation with concern for weakness and decreased appetite. According to the patient's family, he has had a significant decline since evaluation here 11/13/2023 after heat exhaustion from sitting outside on the porch. He went from being fully functional and mowing lawns to having to be fed, dressed, and put in bed. He also started wearing depends which is new. He has not wanted to eat or drink much in general, but today there was an acute change. Last night around 9 PM he went to bed without focal neurologic deficits, but this morning when he woke up he had some right-sided facial droop and seemed to be dragging his right leg when he walked. He was not able to pick it up to planted on the ground to take a step. This is new. Family was not sure if it could be related to his chronic knee arthritis. He also has had difficulty swallowing today, choking on medications. Family expresses concern because he has gone downhill so quickly over the last 2 weeks, because even after his TX he reportedly was doing okay and they thought everything was going to be fine. Today seems to be acutely worse, however, with LKN effectively 12/02/23 at 9pm. Related Data Previous Rx's ?Medication ?Instructions ?Recorded aspirin 81 mg tablet,delayed 81 mg PO DAILY #90 tabs 11/10/23 release atorvastatin 80 mg tablet 80 mg PO DAILY #90 tabs 11/10/23 carvedilol 3.125 mg tablet 3.125 mg PO BID #60 tabs 11/10/23 clopidogrel 75 mg tablet 75 mg PO DAILY #90 tabs 11/10/23 empagliflozin 10 mg tablet 10 mg PO DAILY #90 tabs 11/10/23 (Jardiance) omeprazole 20 mg capsule,delayed 20 mg PO DAILY #90 caps 11/10/23 release spironolactone 25 mg tablet 25 mg PO DAILY #90 tabs 11/10/23 sacubitril 24 mg-valsartan 26 mg 1 tab PO BID #60 tabs 11/24/23 tablet (Entresto) Allergies Allergy/AdvReac Type Severity Reaction Status Date / Time tamsulosin Allergy Dizziness Verified 11/10/23 15:31 [facility] Disclaimer: The information contained in this section may have been updated after the patient was seen, as this information can be updated by other users. Medical History E. coli colitis C. difficile colitis Colitis LV dysfunction Acute HFrEF (heart failure with reduced ejection fraction) Ischemic cardiomyopathy Renal artery stenosis Cervical disc herniation Osteoarthritis Kidney stones Lumbar disc disease Lumbar facet arthropathy Lumbar compression fracture Chronic low back pain Closed left hip fracture Hyperlipidemia Elevated PSA BPH (benign prostatic hyperplasia) Hypertension Carotid bruit GERD (gastroesophageal reflux disease) CAD (coronary artery disease) Surgical History History of cardiac cath Stented coronary artery History of coronary artery bypass graft Status post hip surgery H/O left inguinal hernia repair History of neck surgery History of coronary artery bypass graft Family History Other Family history of cancer Family history of kidney stone No significant family history Social History Smoking Status: Never smoker alcohol intake: never substance use type: denies use current occupational status: retired Travel in the last 8 weeks: None household members: spouse housing: house current occupation: [employer] current occupational exposures/hazards: Yes ([employer]) caffeine: Yes ROS Obtained: Yes All systems reviewed & no additional complaints except as documented Physical Exam General General appearance: alert and in no apparent distress Comment: Generally weak, chronically ill-appearing Head Head exam: atraumatic and normocephalic Eye Eye exam: Present normal appearance, PERRL and EOMI ENT ENT exam: Present mucous membranes dry and normal external ear exam Neck Neck exam: Present normal inspection, full ROM and trachea midline; Absent tenderness Chest Chest inspection: Present normal inspection and symmetric chest wall rise; Absent tenderness Respiratory Respiratory exam: Present normal lung sounds bilaterally; Absent respiratory distress, wheezes, stridor or accessory muscle use Cardiovascular Cardiovascular exam: Present regular rate, normal rhythm and other (lifevest in place) Abdominal Exam Abdominal exam: Present soft; Absent distention, tenderness or guarding Extremities Exam Extremities exam: Present normal inspection, full ROM and normal capillary refill; Absent tenderness or edema Back Exam Back exam: Present normal inspection and full ROM; Absent tenderness Neurological Exam Neurological exam: Present alert, oriented X3 and other (Subtle R lower facial droop. Dysarthria. Subtle drift of RLE without other obvious focal deficit. NIHSS 3.); Absent CN II-XII intact Psychiatric Psychiatric exam: Present normal affect and normal mood Skin Skin exam: Present warm and dry Medical Decision Making Medical Records Medical records reviewed: Yes I reviewed the patient's medical records. Screening: Per USPSTF and CDC recommendations, given the prevalence of disease in our region, it is our hospital?s policy to screen for HIV and viral Hepatitis for all patients aged 18 and over and those with ongoing risk factors. Kristian Inquiry Pt receiving controlled substance: No Vital Signs: 12/03/23 19:51 12/03/23 20:00 12/03/23 21:00 Temperature Temperature Source Pulse Rate 84 Pulse Rate [Right Brachial] 82 Respiratory Rate 16 20 Blood Pressure 186/89 H 160/83 H Blood Pressure [Right Arm] 176/87 H Blood Pressure Mean [Right Arm] 116 Blood Pressure Source Blood Pressure Source [Right Arm] Automatic Cuff Blood Pressure Position Blood Pressure Position [Right Arm] Supine 02 Sat by Pulse Oximetry 100 100 Oxygen Delivery Method Room Air 12/03/23 21:30 12/03/23 21:55 Temperature 98.0 F Temperature Source Oral Pulse Rate 97 H Pulse Rate [Right Brachial] Respiratory Rate 19 16 Blood Pressure 172/94 H 172/64 H Blood Pressure [Right Arm] Blood Pressure Mean [Right Arm] Blood Pressure Source Automatic Cuff Blood Pressure Source [Right Arm] Blood Pressure Position Supine Blood Pressure Position [Right Arm] 02 Sat by Pulse Oximetry Oxygen Delivery Method Room Air Lab Data Lab results reviewed: Yes I reviewed the patient's lab results. Lab Results 12/03/23 20:20: WBC 8.9, RBC 3.41 L, Hgb 10.8 L, Hct 33.9 L, MCV 99.4 H, MCH 31.7 H, MCHC 31.9, RDW 13.6, Plt Count 222, MPV 8.5, Neut % (Auto) 62.1, Lymph % (Auto) 23.8, [place] % (Auto) 5.7, Eos % (Auto) 7.5, Baso % (Auto) 1.0, Neut # (Auto) 5.5, Lymph # (Auto) 2.1, [place] # (Auto) 0.5, Eos # (Auto) 0.7 H, Baso # (Auto) 0.1, PT 13.2 H, INR 1.20 H, APTT 23.1, Sodium 138, Potassium 4.0, Chloride 106, Carbon Dioxide 30, Anion Gap 6.0, BUN 18, Creatinine 1.30 H, Estimated Creat Clear 39, Estimated GFR 53 L, Est GFR ( Amer) 64, Glucose 91, Calcium 8.8, Phosphorus 3.8, Magnesium 2.1, Total Bilirubin 1.0, AST 46, ALT 50, Alkaline Phosphatase 167 H, Troponin I 0.04 H, NT-Pro-B Natriuret Pep 8660 H, Total Protein 6.6, Albumin 3.8, Globulin 2.8, Albumin/Globulin Ratio 1.4, TSH 1.22, Thyroxine (T4) 14.0 H, HIV 1&2 Antibody Rapid Nonreactive 12/03/23 20:28: VBG pH 7.38, VBG pCO2 41.3, VBG pO2 27.8 L, VBG HCO3 23.9, VBG Total CO2 25.2, VBG O2 Saturation 53.8, VBG Base Excess -1.2, VBG Lactic Acid 1.1 12/03/23 21:05: Urine Color Yellow, Urine Appearance Clear, Urine pH 7.5, Ur Specific Moran 1.015, Urine Protein 1+ A, Urine Glucose (UA) 3+, Urine Ketones Negative, Urine Blood 1+ A, Urine Nitrate Negative, Urine Bilirubin Negative, Urine Urobilinogen 0.2, Ur Leukocyte Esterase Negative, Urine RBC 5-10, Urine WBC Occasional, Ur Squamous Epith Cells Occasional, Urine Bacteria 1+, Urine Yeast 1+ 12/03/23 20:20 12/03/23 20:20 Orders (Tests/Meds): ED MEDICATIONS Discontinued Medications Generic Name Dose Route Start Last Admin Trade Name Amauryq PRN Reason Stop Dose Admin Lactated Ringer's 500 mls @ 999 mls/hr 12/03/23 20:15 12/03/23 20:18 Lactated Ringer's 500ml IV 12/03/23 20:45 999 mls/hr .Q31M ONE Administration Iopamidol 80 ml 12/03/23 20:35 12/03/23 20:36 Iopamidol-370 (76%);100ml Bottle IV 12/03/23 20:36 80 ml ONCE ONE Administration Sodium Chloride 50 ml 12/03/23 20:35 12/03/23 20:36 0.9 % Sodium Chloride 50 Ml Vial IV 12/03/23 20:36 50 ml ONCE ONE Administration Sodium Chloride 10 ml 12/03/23 20:35 12/03/23 20:36 Sodium Chloride 0.9% 10ml Syr (Rad Only) IV 01/02/24 20:34 10 ml NEEDED PRN Administration Maintain IV Site ORDERS Category Date Time Status CT angio head Stat Cat Scan 12/03/23 20:[address] angio neck Stat Cat Scan 12/03/23 20:[address] head/brain wo con Stat Cat Scan 12/03/23 20:04 Completed CXR --portable [XR chest portable] Stat Exams 12/03/23 20:04 Completed BNP [NT Pro Brain Natriuretic Pep.] Stat Lab 12/03/23 20:20 Completed CBC w/Auto Diff [Complete Blood Count Auto Diff] Stat Lab 12/03/23 20:20 Completed CMP [Comprehensive Metabolic Panel] Stat Lab 12/03/23 20:20 Completed HIV (1&2) Antibody Rapid Stat Lab 12/03/23 20:20 Completed Hep C Ab with Reflex to RNA Stat Lab 12/03/23 20:20 Received MAG [Magnesium] Stat Lab 12/03/23 20:20 Completed PHOS [Phosphorous] Stat Lab 12/03/23 20:20 Completed PT INR [Prothrombin Time INR] Stat Lab 12/03/23 20:20 Completed PTT [Activated Partial Thrombo Time] Stat Lab 12/03/23 20:20 Completed T4 (Thyroxine) Stat Lab 12/03/23 20:20 Completed TSH [Thyroid Stimulating Hormone] Stat Lab 12/03/23 20:20 Completed Trop I [Troponin I] Stat Lab 12/03/23 20:20 Completed UA [Urinalysis and Microscopic] Stat Lab 12/03/23 21:05 Completed VBG [Venous Blood Gas] Stat RT 12/03/23 20:28 Completed ECG Data Tracing #1: I reviewed this ECG and interpreted as documented below: Normal sinus rhythm with a first-degree AV block with KS interval of [address] changes concerning for STEMI. Occasional PVCs. ECG initial impression date: 12/03/23 ECG initial impression time: 20:23 Medical Decision Narrative: In summary, this patient is a 83-year-old male presenting to the Emergency Department for evaluation of acute on chronic functional decline, weakness, with no focal right facial droop and right lower extremity weakness. Differential diagnoses considered include but are not limited to CVA, hypoglycemia, electrolyte arrangement, dehydration, VICENTE, urinary tract infection, pneumonia, ACS, CHF exacerbation. Ruling out the most morbid conditions drove assessment. It should be noted patient's history includes heart failure with reduced ejection fraction, CAD status post stenting, renal artery stenosis, hypertension, hyperlipidemia which may or may not be at goal therapy. This complicates all aspects of care by increasing patient's risk for morbidity. I reviewed patient's past medical records and noted previous admission for TX with stenting as per HPI as well as his previous evaluation in the ED with concern for heat exposure. On exam, the patient is lying in bed in no acute distress. He does appear chronically ill. He has dysarthria, right-sided facial droop, and right lower extremity drift. I gave him an NIH stroke scale of 3 at this time. Workup included stroke CT scans as well as broad lab evaluation to evaluate for infectious, metabolic, cardiac causes of the patient's symptoms. I independently interpreted CT scan prior to the radiologist read and noted concerns for acute left-sided stroke with loss of sandhu-white matter differentiation. Please see their read for final interpretation. Labs were obtained that demonstrated elevated troponin and BNP but no ischemic changes noted on EKG. This is in the setting of advanced known heart failure. Kidney function is around his baseline. We have not been able to obtain a urinalysis at this point. Ultimately, I feel the patient has had acute to subacute stroke after interactive discussions with radiology and my independent interpretation of CT scan. I had an interactive discussion with Dr. Chua, the stroke neurology attending at [facility] who advised that is possible the patient had stroke weeks ago but acutely worsened overnight, or it could be an acute stroke from last night. Difficult to say at this time. Ultimately, he advised they would be happy to accept the patient if they have beds, and through viz. chat I was notified that they do have beds. Given this, patient is excepted to for transfer for higher level of care for neurology evaluation. Family updated and consented to plan of care. EMS transport was arranged, and patient was transported in stable condition. Patient not tpa candidate given outside window. No LVO for thrombectomy. Critical Care Critical Care Time Critical Care Time: Yes Attestation: On 12/03/23, the high probability of a clinically significant, sudden or life threatening deterioration of the following system(s) required my full and direct attention, intervention and personal management. The time I documented below is in addition to time spent performing reported procedures but includes the following listed in this critical care notation. Total Time Total Critical Care Time: 30
[2023-12-03 20:31] LABS: Lactate Venous 1.1 mmol/L (0.4-2.0); VBG Base Excess -1.2 mmol/L (-2.4-2.3); VBG HCO3 23.9 mmol/L (23-30); VBG Oxygen Saturation 53.8 % (50-70); VBG PCO2 41.3 mmol/L (35-51); VBG PH 7.38 mmol/L (7.31-7.41); VBG PO2 27.8 mmol/L (28-40); VBG Total CO2 25.2 mmol/L (23-27)
[2023-12-03 20:34] LABS: Basophils # 0.1 K/mm3 (0-0.2); Eosinophils # 0.7 K/mm3 (0.0-0.4); Eosinophils % 7.5 % (0.1-12.0); Hematocrit 33.9 % (42.0-52.0); Hemoglobin 10.8 g/dL (14.1-18.0); Lymphocytes # 2.1 K/mm3 (0.7-4.5); Lymphocytes % 23.8 % (10-50); Mean Corpuscular HGB Conc 31.9 g/dL (31.8-35.4); Mean Corpuscular Hemoglobin 31.7 pg (27.0-31.2); Mean Corpuscular Volume 99.4 fl (80-94); Mean Platelet Volume 8.5 fl (7.4-10.4); Monocytes # 0.5 K/mm3 (0.1-1.0); Monocytes % 5.7 % (1.7-9.3); Neutrophils # 5.5 K/mm3 (1.8-7.8); Neutrophils % 62.1 % (37.0-80.0); Platelet Count 222 K/mm3 (142-424); Red Blood Count 3.41 M/mm3 (4.60-6.20); Red Cell Distribution Width 13.6 % (11.5-17.5); White Blood Count 8.9 K/mm3 (4.8-10.8)
[2023-12-03] MEDS: 0.9 % SODIUM CHLORIDE 50 ML VIAL IV (20:36)
[2023-12-03] MEDS: SODIUM CHLORIDE 0.9% 10ML SYR (RAD ONLY) 10 ML IV (20:36)
[2023-12-03] MEDS: IOPAMIDOL-370 (76%);100ML BOTTLE 80 ML IV (20:36)
--- NOTE | 2023-12-03 20:40 | PC.NURSE ---
Pt is back in room from CT
[2023-12-03 20:43] LABS: Albumin Level 3.8 g/dl (3.5-5.0); Chloride 106 mmol/L (98-107); Sodium 138 mmol/L (136-145)
[2023-12-03 20:46] LABS: Activated Partial Thrombo Time 23.1 seconds (22.8-30.6); Alanine Aminotransferase 50 U/L (12-78); Albumin/Globulin Ratio 1.4 (1.1-1.8); Alkaline Phosphatase 167 U/L (38-126); Aspartate Amino Transferase 46 U/L (17-59); Blood Urea Nitrogen 18 mg/dl (9-20); Calcium 8.8 mg/dl (8.4-10.2); Carbon Dioxide 30 mmol/L (22.0-30.0); Creatinine Clearance Estimated 39 mL/min (50-200); Estimated Glomerular Filt Rate 53 ml/min (>60); GFR (African American) 64 ML/MIN (>60); Globulin 2.8 g/dL (1.3-3.2); Glucose 91 mg/dl (74-100); Phosphorous 3.8 mg/dl (2.5-4.5); Prothrombin Time 13.2 seconds (10.1-12.5); Total Protein,Serum 6.6 g/dl (6.3-8.2)
[2023-12-03 20:47] LABS: Magnesium 2.1 mg/dl (1.6-2.3)
[2023-12-03 20:56] LABS: NT Pro Brain Natriuretic Pep. 8660 pg/mL (0-450)
[2023-12-03 20:59] LABS: Troponin I 0.04 ng/ml (0.00-0.034)
[2023-12-03 21:00] VITALS: BP 160/83; RESP 20
--- NOTE | 2023-12-03 21:07 | PC.NURSE ---
urine collected and sent to lab
[2023-12-03 21:11] LABS: Appearance,Urine CLEAR (Clear); Bilirubin,Urine Negative (Negative); Blood, Urine 1+ (Negative); Color,Urine YELLOW (Yellow); Glucose,Urine (UA) 3+ (Negative); Ketones,Urine Negative (Negative); Leukocyte Esterase,Urine Negative (Negative); Microscopic, Urine URINE MICROSCOPIC (MICROSCOPIC); Nitrate,Urine Negative (Negative); PH,Urine 7.5 (5.0-8.5); Protein,Urine 1+ (Negative); Specific Gravity, Urine 1.015 (1.005-1.030); Urobilinogen,Urine 0.2 EU/dl (0.2)
[2023-12-03 21:17] LABS: Thyroid Stimulating Hormone 1.22 uIU/mL (0.465-4.68)
[2023-12-03 21:29] LABS: Bacteria,Urine 1+ /lpf; Squamous Epithelial Cell,Urine Occasional #/hpf (0-5); WBC,Urine Occasional #/hpf (0-3); Yeast,Urine 1+ /lpf
[2023-12-03 21:30] VITALS: BP 172/94; RESP 19
[2023-12-03 21:30] LABS: HIV (1&2) Antibody Rapid NONREACTIVE (NONREACTIVE)
[2023-12-03 21:55] VITALS: BP 172/64; PULSE 97; RESP 16; TEMP 36.7; O2SAT 100
[2023-12-05 06:15] LABS: HCV Ab Non Reactive (Non Reactive)
== END 2023-12-03 22:10 | disposition short-term general hospital (02) ==
PROVIDERS: Emergency Provider Emergency Medicine; PCP Family Medicine
DX: I63.81 Other cerebral infarction due to occlusion or stenosis of small artery (principal); I66.9 Occlusion and stenosis of unspecified cerebral artery; R79.89 Other specified abnormal findings of blood chemistry; I49.3 Ventricular premature depolarization; I44.0 Atrioventricular block, first degree; R29.703 NIHSS score 3; I11.0 Hypertensive heart disease with heart failure; I50.21 Acute systolic (congestive) heart failure; E78.5 Hyperlipidemia, unspecified
CPT/HCPCS: 70450; 70496; 70498; 71045; 80053; 81001; 82803; 83735; 83880; 84100; 84436; 84443; 84484; 85025; 85610; 85730; 86803; 87389; 93005; 99291; J7120; Q9967